=== PATIENT | male | born 1935 | race Caucasian/White ===

== ENCOUNTER → 2016-09-19 | Outpatient (CLI) | payer MEDICARE, OTHER ==
--- NOTE | 2016-09-19 12:07 | XR ---
EXAMINATION TYPE: XR knee complete LT DATE OF EXAM: 09/19/2016 10:54 AM COMPARISON: NONE HISTORY: Pain TECHNIQUE: 3 views are submitted. FINDINGS: There is complete loss of joint space involving the medial and lateral and patellofemoral joints. Hyp ertrophic spurs are noted. There is remodeling of the lateral tibial plateau. Findings suggest chondr ocalcinosis. Vascular calcifications are seen. IMPRESSION: 1. Severe osteoarthritis with complete loss of joint space.
== END | disposition home or self-care (01) ==
LOC: RADXRMAIN 10:23
PROVIDERS: ATTEND Family Medicine
DX: M17.12 Unilateral primary osteoarthritis, left knee (principal)

== ENCOUNTER 2016-09-24 22:10 | Inpatient (IN) | payer MEDICARE, OTHER ==
--- NOTE | 2016-09-24 22:30 | ED ---
General Adult HPI - General Chief complaint: Upper Respiratory Infection Stated complaint: MARITZA Time Seen by Provider: 09/24/16 22:13 Source: EMS, RN notes reviewed, old records reviewed Mode of arrival: EMS Limitations: language barrier, physical limitation - History of Present Illness Initial comments: This is an 81-year-old male the ER for evaluation of inability to ambulate weakness and cough and congestion. Patient is coughing up mucus. Patient has significant and long medical history. Patient had a couple coughing fits earlier today Teresa change of color. Patient's unable to of history is Wise's feeling, history obtained from family. Patient is averbal - Related Data Home Medications Medication Instructions Recorded Confirmed Docusate Sodium [Dulcolax Stool 100 mg PO HS 09/10/14 09/24/16 Softener] Dutasteride [Avodart] 0.5 mg PO W/SUPPER 09/10/14 09/24/16 Furosemide [Lasix] 20 mg PO DAILY 09/10/14 09/24/16 Metoprolol Succinate [Toprol XL] 25 mg PO DAILY 09/10/14 09/24/16 Multivitamins, Thera [Multivitamin] 1 tab PO DAILY 09/10/14 09/24/16 lamoTRIgine [LaMICtal] 300 mg PO QAM 09/10/14 09/24/16 lamoTRIgine [LaMICtal] 350 mg PO W/SUPPER 09/10/14 09/24/16 Aspirin EC [Ecotrin Low Dose] 81 mg PO W/SUPPER 09/24/16 09/24/16 Calcium Carbonate [Calcium] 600 mg PO DAILY 09/24/16 09/24/16 Mucous Relief Dm 400 mg PO TID 09/24/16 09/24/16 Polyethylene Glycol 3350 [Miralax] 17 gm PO DAILY PRN 09/24/16 09/24/16 Ranitidine HCl [Zantac] 150 mg PO BID 09/24/16 09/24/16 Sulfamethox-Tmp 800-160Mg [Bactrim 1 tab PO BID 09/24/16 09/24/16 DS 800-160 mg] valACYclovir HCL [Valtrex] 500 mg PO TID 09/24/16 09/24/16 Allergies Allergy/AdvReac Type Severity Reaction Status Date / Time diphenhydramine HCl Allergy hyper and Verified 09/24/16 22:43 [From Benadryl] aggitated influenza virus vaccine tvs Allergy Confusion Verified 09/24/16 22:43 2014- (65 yr and up) [From Fluad (65yr+)(PF)] vaccine adjuvant emulsion Allergy Confusion Verified 09/24/16 22:43 MF59C.1 [From Fluad (65yr+)(PF)] Review of Systems ROS Statement: Those systems with pertinent positive or pertinent negative responses have been documented in the HPI. ROS Other: All systems not noted in ROS Statement are negative. 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 History of Any Multi-Drug Resistant Organisms: None Reported Past Surgical History: Hernia Repair, Pacemaker Additional Past Surgical History / Comment(s): only pacemaker per legal guardian , oral surgery, cataract, CT WITH ANESTHESIA Additional Past Anesthesia/Blood Transfusion Reaction / Comment(s): limted family history Type of Cardiac Device: Permanent Pacemaker Device Placement Date:: unknown Past Psychological History: Anxiety, PTSD Additional Psychological History / Comment(s): gets aggitated with new experiences Smoking Status: Never smoker Past Alcohol Use History: None Reported Past Drug Use History: None Reported - Past Family History Mother Family Medical History: Cancer General Exam Limitations: language barrier, altered mental status, physical limitation General appearance: alert, in no apparent distress Head exam: Present: atraumatic, normocephalic, normal inspection Eye exam: Present: normal appearance, PERRL, EOMI. Absent: scleral icterus, conjunctival injection, periorbital swelling ENT exam: Present: normal exam, mucous membranes moist Neck exam: Present: normal inspection. Absent: tenderness, meningismus, lymphadenopathy Respiratory exam: Present: normal lung sounds bilaterally. Absent: respiratory distress, wheezes, rales, rhonchi, stridor Cardiovascular Exam: Present: regular rate, normal rhythm, normal heart sounds. Absent: systolic murmur, diastolic murmur, rubs, gallop, clicks GI/Abdominal exam: Present: soft, normal bowel sounds. Absent: distended, tenderness, guarding, rebound, rigid Extremities exam: Present: normal inspection, full ROM, normal capillary refill. Absent: tenderness, pedal edema, joint swelling, calf tenderness Back exam: Present: normal inspection Neurological exam: Present: alert, oriented X3, CN II-XII intact Psychiatric exam: Present: normal affect, normal mood Skin exam: Present: warm, dry, intact, normal color. Absent: rash Course Vital Signs 09/24/16 09/24/16 09/25/16 22:14 23:00 01:44 Temperature 97.7 F Pulse Rate 72 72 Respiratory 20 16 Rate Blood Pressure 141/91 142/61 O2 Sat by Pulse 95 89 L 98 Oximetry - Reevaluation(s) Reevaluation #1: 09/25/16 02:58 Family and caregiver spoken with, they would like patient to remain at home. We 'll make arrangements for patient secondary to his new debilitated state EKG Findings - EKG Comments: EKG Findings:: EKG shows paced rhythm rate of 83, WV 122, QRS 182, QTC 533 Medical Decision Making - Medical Decision Making 81 male in the ER for evaluation. Patient came in by family for evaluation of coughing fits living to epoxying color change, patient having 2 episodes return red to blue per family. Patient is a coughing fit here in the emergency room pulse ox dropped to 80%. Patient will be admitted for pulse ox monitoring, managing of coughing and continued evaluation. - Lab Data Result diagrams: 09/24/16 23:08 09/24/16 23:37 Lab Results 09/24/16 09/24/16 09/24/16 Range/Units 23:08 23:37 23:37 WBC 10.6 (3.8-10.6) k/uL RBC 3.94 L (4.30-5.90) m/uL Hgb 10.6 L (13.0-17.5) gm/dL Hct 33.4 L (39.0-53.0) % MCV 84.6 (80.0-100.0) fL MCH 27.0 (25.0-35.0) pg MCHC 31.9 (31.0-37.0) g/dL RDW 14.1 (11.5-15.5) % Plt Count 299 (150-450) k/uL Neutrophils % 82 % Lymphocytes % 8 % Monocytes % 6 % Eosinophils % 1 % Basophils % 1 % Neutrophils # 8.7 H (1.3-7.7) k/uL Lymphocytes # 0.9 L (1.0-4.8) k/uL Monocytes # 0.6 (0-1.0) k/uL Eosinophils # 0.1 (0-0.7) k/uL Basophils # 0.1 (0-0.2) k/uL PT (9.0-12.0) sec INR (<1.1) APTT (22.0-30.0) sec Sodium 130 L (137-145) mmol/L Potassium 5.0 (3.5-5.1) mmol/L Chloride 94 L (98-107) mmol/L Carbon Dioxide 24 (22-30) mmol/L Anion Gap 12 mmol/L BUN 20 (9-20) mg/dL Creatinine 0.70 (0.66-1.25) mg/dL Est GFR (MDRD) Af Amer >60 (>60 ml/min/1.73 sqM) Est GFR (MDRD) Non-Af >60 (>60 ml/min/1.73 sqM) Glucose 105 H (74-99) mg/dL Calcium 8.9 (8.4-10.2) mg/dL Phosphorus 4.3 (2.5-4.5) mg/dL Magnesium 2.0 (1.6-2.3) mg/dL Total Bilirubin 0.5 (0.2-1.3) mg/dL AST 40 (17-59) U/L ALT 27 (21-72) U/L Alkaline Phosphatase 89 (38-126) U/L Total Creatine Kinase 110 (55-170) U/L CK-MB (CK-2) 3.8 H* (0.0-2.4) ng/mL CK-MB (CK-2) Rel Index 3.5 Troponin I <0.012 (0.000-0.034) ng/mL Total Protein 7.3 (6.3-8.2) g/dL Albumin 4.4 (3.5-5.0) g/dL Urine Color Urine Appearance (Clear) Urine pH (5.0-8.0) Ur Specific [place] (1.001-1.035) Urine Protein (Negative) Urine Glucose (UA) (Negative) Urine Ketones (Negative) Urine Blood (Negative) Urine Nitrite (Negative) Urine Bilirubin (Negative) Urine Urobilinogen (<2.0) mg/dL Ur Leukocyte Esterase (Negative) 09/24/16 09/25/16 Range/Units 23:37 02:30 WBC (3.8-10.6) k/uL RBC (4.30-5.90) m/uL Hgb (13.0-17.5) gm/dL Hct (39.0-53.0) % MCV (80.0-100.0) fL MCH (25.0-35.0) pg MCHC (31.0-37.0) g/dL RDW (11.5-15.5) % Plt Count (150-450) k/uL Neutrophils % % Lymphocytes % % Monocytes % % Eosinophils % % Basophils % % Neutrophils # (1.3-7.7) k/uL Lymphocytes # (1.0-4.8) k/uL Monocytes # (0-1.0) k/uL Eosinophils # (0-0.7) k/uL Basophils # (0-0.2) k/uL PT 10.5 (9.0-12.0) sec INR 1.0 (<1.1) APTT 32.4 H (22.0-30.0) sec Sodium (137-145) mmol/L Potassium (3.5-5.1) mmol/L Chloride (98-107) mmol/L Carbon Dioxide (22-30) mmol/L Anion Gap mmol/L BUN (9-20) mg/dL Creatinine (0.66-1.25) mg/dL Est GFR (MDRD) Af Amer (>60 ml/min/1.73 sqM) Est GFR (MDRD) Non-Af (>60 ml/min/1.73 sqM) Glucose (74-99) mg/dL Calcium (8.4-10.2) mg/dL Phosphorus (2.5-4.5) mg/dL Magnesium (1.6-2.3) mg/dL Total Bilirubin (0.2-1.3) mg/dL AST (17-59) U/L ALT (21-72) U/L Alkaline Phosphatase (38-126) U/L Total Creatine Kinase (55-170) U/L CK-MB (CK-2) (0.0-2.4) ng/mL CK-MB (CK-2) Rel Index Troponin I (0.000-0.034) ng/mL Total Protein (6.3-8.2) g/dL Albumin (3.5-5.0) g/dL Urine Color Yellow Urine Appearance Clear (Clear) Urine pH 6.0 (5.0-8.0) Ur Specific [place] 1.010 (1.001-1.035) Urine Protein Negative (Negative) Urine Glucose (UA) Negative (Negative) Urine Ketones Negative (Negative) Urine Blood Negative (Negative) Urine Nitrite Negative (Negative) Urine Bilirubin Negative (Negative) Urine Urobilinogen <2.0 (<2.0) mg/dL Ur Leukocyte Esterase Negative (Negative) - Radiology Data Radiology results: report reviewed (Chest x-ray negative for acute disease, x- ray pelvis possible fracture, CT pelvis is negative for fracture), image reviewed Disposition Clinical Impression: Upper respiratory infection, Hypoxia, Debility Disposition: ADMITTED IP TO THIS [facility] Condition: Good Referrals: Juliet Escoto MD [Primary Care Provider] - 1-2 days
[2016-09-24] MEDS ORDERED: SODIUM CHLORIDE 0.9% 1,000 ML IV STA (23:08)
[2016-09-24] MEDS ORDERED: SODIUM CHLORIDE 0.9% 500 ML IV STA (23:08)
[2016-09-24] MEDS ORDERED: LORazepam 2 MG/ML SYRINGE IV STA (23:58)
[2016-09-24] MEDS ORDERED: ONDANSETRON 4 MG/2 ML VIAL IVP STA (23:59)
[2016-09-25] MEDS ORDERED: LORazepam 2 MG/ML SYRINGE IV PRN (00:04)
[2016-09-25] MEDS ORDERED: ONDANSETRON 4 MG/2 ML VIAL IVP PRN (00:04)
[2016-09-25 00:18] LABS: Basophils # (A) 0.1 k/uL (0-0.2); Basophils % (A) 1 %; CH 27.6; CHCM 32.7; Eosinophils # (A) 0.1 k/uL (0-0.7); Eosinophils % (A) 1 %; HCT 33.4 % (39.0-53.0); HDW 2.74; HGB 10.6 gm/dL (13.0-17.5); Luc # (Auto) 0.27; Luc % (Auto) 3; Lymphocytes # (A) 0.9 k/uL (1.0-4.8); Lymphocytes % (A) 8 %; MCHC 31.9 g/dL (31.0-37.0); MCV 84.6 fL (80.0-100.0); Mean Platelet Volume 7.8; Monocytes # (A) 0.6 k/uL (0-1.0); Monocytes % (A) 6 %; Neutrophils # (A) 8.7 k/uL (1.3-7.7); Neutrophils % (A) 82 %; RBC 3.94 m/uL (4.30-5.90); RDW 14.1 % (11.5-15.5); WBC 10.6 k/uL (3.8-10.6); WBC (Perox) 11.52
[2016-09-25 00:30] LABS: ALT 27 U/L (21-72); AST 40 U/L (17-59); Alkaline Phosphatase 89 U/L (38-126); Anion Gap 12 mmol/L; Blood Urea Nitrogen 20 mg/dL (9-20); Calcium 8.9 mg/dL (8.4-10.2); Carbon Dioxide 24 mmol/L (22-30); Chloride 94 mmol/L (98-107); Glucose 105 mg/dL (74-99); Non-African American GFR(MDRD) >60 (>60 ml/min/1.73 sqM); Phosphorous 4.3 mg/dL (2.5-4.5); Sodium 130 mmol/L (137-145); Total Bilirubin 0.5 mg/dL (0.2-1.3); Total Protein 7.3 g/dL (6.3-8.2)
--- NOTE | 2016-09-25 00:32 | XR ---
EXAM: XR Pelvis, 1 or 2 Views. CLINICAL HISTORY: Reason: Pain TECHNIQUE: Frontal view of the pelvis. COMPARISON: No relevant prior studies available. FINDINGS: Bones/joints: Questionable fracture of the anterior acetabulum on the right with 6 mm separation. Questionable fracture of left inferior pubic ramus near acetabulum. Mild to moderate degenerative disc disease in the lower lumbar spine. No definite fracture of bilateral femurs. No dislocation Osteopenia. Soft tissues: Unremarkable. IMPRESSION: 1. Questionable fracture of the anterior acetabulum on the right with 6 mm separation. 2. Questionable fracture of left inferior pubic ramus near acetabulum.
--- NOTE | 2016-09-25 00:41 | XR ---
EXAM: XR Chest, 1 View. CLINICAL HISTORY: Reason: Weakness TECHNIQUE: Frontal view of the chest. COMPARISON: 07/12/14 FINDINGS: Lungs: Right basilar atelectasis. Pleural space: Cannot rule out right pleural effusion. No pneumothorax. Heart: Suspect cardiomegaly . Mediastinum: Suspect large hiatal hernia. Bones/joints: Old left rib fractures. Osteopenia. Moderate degenerative changes, especially worse in bilateral shoulders. Other findings: Right pacer is again noted. IMPRESSION: 1. Right basilar atelectasis. Cannot rule out small right pleural effusion. 2. enlarged hyperdense mediastinal contour is not substantially changed, may suggest cardiomegaly and/or large hiatal hernia. Large mediastinal mass cannot be excluded.
[2016-09-25 00:46] LABS: Partial Thromboplastin Time 32.4 sec (22.0-30.0); Prothrombin Time 10.5 sec (9.0-12.0)
[2016-09-25 00:48] LABS: Creatine Kinase 110 U/L (55-170)
[2016-09-25 01:01] LABS: Troponin I <0.012 ng/mL (0.000-0.034)
[2016-09-25 01:29] LABS: Creatine Kinase MB 3.8 ng/mL (0.0-2.4)
--- NOTE | 2016-09-25 02:10 | CT ---
EXAM: CT Pelvis Without Intravenous Contrast. CLINICAL HISTORY: Pain TECHNIQUE: Axial computed tomography images of the pelvis without intravenous contrast. CTDI is 18 mGy and DLP is 574.3 mGy-cm. coronal and sagittal reconstructions are performed. This CT exam was performed using one or more of the following dose reduction techniques: automated exposure control, adjustment of the mA and/or kV according to patient size, and/or use of iterative reconstruction technique. COMPARISON: 09/14/14 FINDINGS: Bowel: Unremarkable. No obstruction. No mucosal thickening. Appendix: No findings to suggest acute appendicitis. Intraperitoneal space: Unremarkable. No free air. No significant fluid collection. Bladder: Unremarkable. No stones. Reproductive: Unremarkable as visualized. Bones/joints: Osteopenia. Moderate degenerative changes. Mild osteoarthritic changes. No acute fracture. No dislocation. Soft tissues: Small left inguinal hernia containing fluid is new. Vasculature: Unremarkable. No lower abdominal aortic aneurysm. Lymph nodes: Unremarkable. No enlarged lymph nodes. IMPRESSION: 1. No fracture or dislocation. 2. Small left inguinal hernia containing fluid is new.
[2016-09-25 02:43] LABS: Appearance,Urine Clear (Clear); Bilirubin,Urine Negative (Negative); Glucose,Urine (UA) Negative (Negative); Ketones,Urine Negative (Negative); Leukocyte Esterase,Urine Negative (Negative); Nitrite,Urine Negative (Negative); Protein,Urine Negative (Negative); UA Billing (MACRO vs. MICRO) CHEM; Urobilinogen,Urine <2.0 mg/dL (<2.0)
[2016-09-25] MEDS ORDERED: IPRATROPIUM-ALBUTEROL 3 ML NEB INHALATION STA (03:01)
[2016-09-25] MEDS ORDERED: AZITHROMYCIN 500 MG in SODIUM CHLORIDE 0.9% 250 ML IVPB STA (03:01)
[2016-09-25] MEDS ORDERED: ACETAMINOPHEN IV (For NPO) 1,000 MG in EMPTY BAG 1 BAG IVPB STA (04:39)
[2016-09-25] MEDS: IPRATROPIUM-ALBUTEROL 3 ML NEB INHALATION SCH ×4 (07:51→19:57)
[2016-09-25] MEDS: ENOXAPARIN 40 MG/0.4 ML SYRINGE SQ SCH (08:20)
[2016-09-25] MEDS: SODIUM CHLORIDE 0.9% 1,000 ML IV SCH ×2 (08:20→14:48)
[2016-09-25] MEDS ORDERED: ACETAMINOPHEN IV (For NPO) 1,000 MG in EMPTY BAG 1 BAG IVPB PRN (12:47)
[2016-09-25] MEDS ORDERED: POLYETHYLENE GLYCOL 3350 17 GM POWD.PACK PO PRN (13:15)
--- NOTE | 2016-09-25 13:18 | P.HPIM ---
History of Present Illness H&P Date: 09/25/16 Chief Complaint: cough and chest congestion patient is an 81-year-old male patient of Dr. Trent Escoto who presented to [facility] emergency room with a chief complaint of cough and chest congestion patient was also having gradual and weakness and was having difficulty standing and ambulating, he was evaluated in the emergency room chest x-ray was suspicious for pneumonia, pelvic x-ray revealed questionable fracture of Santillo to her acetabulum on the right and questionable fraction of the left inferior pubic ramus, however computed tomography scan of the pelvis was normal. Patient was admitted to medical floor he was started on IV antibiotic, pulmonary consultation and orthopedic surgery consultation were requested. Patient is nonverbal, per history patient has developmental delay and is and able to communicate. 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 History of Any Multi-Drug Resistant Organisms: None Reported Past Surgical History: Hernia Repair, Pacemaker Additional Past Surgical History / Comment(s): L cataract, oral surgery, inguinal hernia repair. Additional Past Anesthesia/Blood Transfusion Reaction / Comment(s): limted family history. Pt was slow to clear anesthesia after pacemaker insertion. Type of Cardiac Device: Permanent Pacemaker Device Placement Date:: 2003 inserted and 2012 battery changed Past Psychological History: Anxiety, PTSD Additional Psychological History / Comment(s): Pt was institutionalized for years-age [age]. He was in a straight jacket at times. He came to live with Thalia Pascual and her spouse after that. He has cerebral palsey and is mentally handicapped. He has the mentation of a 3 yrs old. He can normally stand/pivot with assist and sit in wheelchair. He feeds himself fingerfood. Food must be cut small. He will try to use utensils but food falls off. He is aware when he needs to urinate or move his bowels. He gets aggitated with new experiences. Smoking Status: Never smoker Past Alcohol Use History: None Reported Past Drug Use History: None Reported - Past Family History Father History Unknown: Yes Mother Family Medical History: Cancer Additional Family Medical History / Comment(s): ?lung cancer. Medications and Allergies Home Medications Medication Instructions Recorded Confirmed Type Docusate Sodium [Dulcolax Stool 100 mg PO HS 09/10/14 09/24/16 History Softener] Dutasteride [Avodart] 0.5 mg PO W/SUPPER 09/10/14 09/24/16 History Furosemide [Lasix] 20 mg PO DAILY 09/10/14 09/24/16 History Metoprolol Succinate [Toprol XL] 25 mg PO DAILY 09/10/14 09/24/16 History Multivitamins, Thera [Multivitamin] 1 tab PO DAILY 09/10/14 09/24/16 History lamoTRIgine [LaMICtal] 300 mg PO QAM 09/10/14 09/24/16 History lamoTRIgine [LaMICtal] 350 mg PO W/SUPPER 09/10/14 09/24/16 History Aspirin EC [Ecotrin Low Dose] 81 mg PO W/SUPPER 09/24/16 09/24/16 History Calcium Carbonate [Calcium] 600 mg PO DAILY 09/24/16 09/24/16 History Mucous Relief Dm 400 mg PO TID 09/24/16 09/24/16 History Polyethylene Glycol 3350 [Miralax] 17 gm PO DAILY PRN 09/24/16 09/24/16 History Ranitidine HCl [Zantac] 150 mg PO BID 09/24/16 09/24/16 History Sulfamethox-Tmp 800-160Mg [Bactrim 1 tab PO BID 09/24/16 09/24/16 History DS 800-160 mg] valACYclovir HCL [Valtrex] 500 mg PO TID 09/24/16 09/24/16 History Allergies Allergy/AdvReac Type Severity Reaction Status Date / Time diphenhydramine HCl Allergy hyper and Verified 09/24/16 22:43 [From Benadryl] aggitated influenza virus vaccine tvs Allergy Confusion Verified 09/24/16 22:43 (65 yr and up) [From Fluad (65yr+)(PF)] vaccine adjuvant emulsion Allergy Confusion Verified 09/24/16 22:43 MF59C.1 [From Fluad (65yr+)(PF)] Physical Exam Vitals: Vital Signs Temp Pulse Pulse Resp BP BP Pulse Ox 09/25/16 11:55 76 09/25/16 11:44 76 09/25/16 08:07 90 09/25/16 07:51 88 90 L 09/25/16 07:40 100.4 F H 93 16 136/60 91 L 09/25/16 06:50 96 20 155/76 96 09/25/16 06:00 88 26 H 141/71 90 L 09/25/16 05:30 93 L 09/25/16 05:00 80 24 88 L in general patient is somnolent responsive to stimuli nonverbal in no apparent distress HEENT head normocephalic and atraumatic Neck is supple no JVD no goiter no lymphadenopathy Chest exam reveals a few scattered crackles no wheezing Cardiac exam reveals regular heart sounds no gallops no murmurs Abdomen is soft nontender no organomegaly Extremity exam reveals no edema no cyanosis or clubbing Results CBC & Chem 7: 09/24/16 23:08 09/24/16 23:37 Thrombosis Risk Factor Assmnt - Choose All That Apply Any of the Below Risk Factors Present?: Yes Each Factor Represents 1 point: Obesity (BMI >25) Other Risk Factors: Yes Each Risk Factor Represents 3 Points: Age 75 years or older Other congenital or acquired thrombophilia - If yes, enter type in comment: No Thrombosis Risk Factor Assessment Total Risk Factor Score: 4 Thrombosis Risk Factor Assessment Level: Moderate Risk Assessment and Plan Plan: #1 febrile illness was right basilar infiltrate and possible small right pleural effusion at this time patient is started on Rocephin and Zithromax will monitor progress closely #2 fall 2-1/2 weeks ago with inability to stand or walk at this time no clear evidence of bone fracture orthopedic surgery consultation was requested,. Will consult physical therapy and occupational therapy, patient may need placement after the acute admission. #3 history of seizure disorder maintained on Lamictal no recent seizures resume medications #4 history of hypertension resume metoprolol #5 for DVT prophylaxis patient was started on Lovenox for GI prophylaxis continue his ranitidine Will follow during this admission Will recheck labs in a.m.
[2016-09-25] MEDS ORDERED: guaiFENesin-DM 100-10MG/5ML 10 ML CUP PO PRN (16:00)
[2016-09-25] MEDS ORDERED: RX INFO: IV CONTRAST WAS GIVEN 1 EACH MISC MISCELLANE PRN (16:16)
[2016-09-25] MEDS: lamoTRIgine 100 MG TAB PO SCH ×2 (16:33→18:37)
[2016-09-25] MEDS: valACYclovir 500 MG TAB PO SCH ×2 (18:37→20:52)
[2016-09-25] MEDS: predniSONE 20 MG TAB PO SCH (18:37)
[2016-09-25] MEDS: FINASTERIDE 5 MG TAB PO SCH (18:37)
[2016-09-25] MEDS: ASPIRIN 81 MG CHEW PO SCH (18:37)
[2016-09-25] MEDS: CLINDAMYCIN 600 MG in DEXTROSE 5% IN WATER 50 ML IVPB SCH ×4 (19:09→23:11)
[2016-09-25] MEDS: BUDESONIDE 0.5 MG/2 ML NEBU INHALATION SCH (19:56)
--- NOTE | 2016-09-25 19:59 | CONS ---
DATE OF CONSULTATION: 09/25/2016 HISTORY OF PRESENT ILLNESS: The patient is an 81-year-old male who does have history of cerebral palsy and is nonverbal, who lives with a caregiver and her spouse and has guardian. Patient was experiencing worsening cough with bronchospasms, having coughing fits at home, where he would become red and then blue, also was found to be hypoxic in the ER after he had a coughing fit. The patient also had a recent fall about 2-1/2 weeks ago and since then has had more difficulty with pain in his legs. Does have a right leg deformity and the pain seems to be worse in the left leg. Subsequently, patient has been mostly in a wheelchair as of late, unable to ambulate. Chest x-ray done in the emergency room showed some right basilar atelectasis with a possible pleural effusion. Patient was febrile and admitted for further evaluation and treatment. PAST MEDICAL HISTORY: Positive for an eye disorder, hypertension, osteoarthritis, prostate disorder, seizure disorder, skin disorder, cerebral palsy, BPH. The patient does have a history of coughing a lot of mucus up, kyphosis, blindness in his right eye, anxiety and PTSD. PAST SURGICAL HISTORY: Positive for hernia repair and pacemaker placement as well as left cataract surgery, oral surgery. ALLERGIES INCLUDE BENADRYL AND INFLUENZA VACCINE. MEDICATIONS PATIENT IS ON AT HOME INCLUDE: 1. Dulcolax stool softener 100 mg p.o. q.h.s. 2. Avodart 0.5 mg p.o. with supper. 3. Lasix 20 mg p.o. daily. 4. Toprol-XL 25 mg p.o. daily. 5. Multivitamin 1 tab daily. 6. Lamictal 300 mg p.o. q.a.m. with 350 mg p.o. with supper. 7. Ecotrin 81 mg daily with supper. 8. Calcium 600 mg p.o. daily. 9. Mucus relief DM 400 mg p.o. t.i.d. 10. MiraLax 17 g p.o. daily. 11. Zantac 150 mg p.o. b.i.d. 12. Bactrim 1 tab p.o. b.i.d. and 13. Valtrex 500 mg p.o. t.i.d. FAMILY HISTORY: Father's history is unknown. Mother with questionable lung cancer. SOCIAL HISTORY: Patient is a nonsmoker. No use of alcohol reported. No illicit drug use. Review of systems is unobtainable, as the patient is nonverbal and no caregivers are available at time of consult. On physical exam, general is an 81-year-old male who is lying in bed, arousable. Does moan to verbal stimuli. VITAL SIGNS: Temp is 98.4 axillary, heart rate is 80, respiratory rate is 20, blood pressure is 127/68, O2 sat is 93% on high-flow O2 at 10L. HEENT: Head is normocephalic, atraumatic. Patient does not open his eyes for evaluation of pupils nor his mouth for assessment of oral cavity. NECK: Supple. Trachea is midline. LUNGS: Essentially clear, decreased to the bilateral bases. HEART: S1 and S2 heard, but distant heart sounds. ABDOMEN: Soft. Bowel sounds are heard. EXTREMITIES: With no edema. NEUROLOGIC: The patient is responsive to verbal stimuli; however, does not respond appropriately, just moans. Does have a history of cerebral palsy. LABS: White count is 10.6, hemoglobin is 10.6, hematocrit is 33.4 with 299,000 platelets. PT is 10.5. INR is 1.0, PTT is 32.4. Sodium is 130, potassium is 5.0, chloride is 94, CO2 is 24, anion gap is 12, BUN is 20, creatinine 0.70, glucose 105. Calcium 8.9. Phosphorus 4.3. Magnesium 2.0. Total bilirubin 0.5, AST 40, ALT 27, alk phos 89. Total CK 110, MB is 3.8, relative index 3.5. Troponins less than 0.012. Total protein 7.3. Albumin is 4.4. Urinalysis is negative for nitrites or leuk esterase. Chest x-ray: Right basilar atelectasis, cannot rule out small right pleural effusion with enlarged hyperdense mediastinal contour, not substantially changed from July 2014. May suggest cardiomegaly and/or large hiatal hernia. Large mediastinal mass cannot be excluded. CT of the pelvis shows no fracture or dislocation. Small left inguinal hernia containing fluid is new. IMPRESSION: 1. Cough with bronchospasm, viral versus bacterial bronchitis. 2. Hypoxia. 3. Right basilar atelectasis versus infiltrate. 4. Questionable mediastinal mass. 5. History of cerebral palsy. 6. Possible aspiration. 7. Debility. PLAN: Continue oxygen to maintain saturations greater than or equal to 88%. Continue IV antibiotics and will add clindamycin 600 mg every 6 hours for possible aspiration. Will also add prednisone 40 mg p.o. daily for bronchospasms, check a CTA of the chest to rule out PE and further evaluate mediastinal mass. Continue GI and DVT prophylaxis, add aerosolized steroids and will follow the patient closely with you, making further changes as necessary. Thank you for the consultation. I performed a history and physical examination of this patient and discussed the same with the dictator. I agree with the dictator's note. Any additional findings/opinions, etc. will be noted.
--- NOTE | 2016-09-25 20:49 | CT ---
EXAMINATION TYPE: CT ANGIO CHEST DATE OF EXAM: 09/25/2016 6:42 PM HISTORY: Unable to obtain history. Patient is mentally challenged CT DLP: 452.4 mGycm. Automated exposure control for dose reduction was used. CONTRAST: CTA scan of the thorax is performed with IV Contrast, patient injected with 100 mL of Omnipaque 300, pulmonary embolism protocol. . FINDINGS: There is no pulmonary edema. However, there is bibasilar partial consolidation of the right lower lob e and the left lower lobe posteromedially, affecting approximately one third of each lower lobe, rela ever to the massive upward herniation of abdominal contents which includes the stomach and the transve rse colon&mesocolon. These abdominal contents appear to be in no distress. There is no pleural effusion or pneumothorax. The tracheobronchial tree is patent. There is satisfactory enhancement of the pulmonary artery and its branches; there is no CT evidence f or pulmonary embolism. There is mild cardiomegaly. Coronary calcifications are noted. No pericardial effusion. Note: Both shoulders show chronic architectural distortion, left much greater than right. IMPRESSION: 1. NEGATIVE FOR PULMONARY EMBOLISM. 2. BIBASILAR LUNG FINDINGS DISCUSSED, WHICH CAN CORRELATE WITH A CLINICAL DIAGNOSIS OF BIBASILAR P NEUMONIA.
[2016-09-25] MEDS: DOCUSATE 100 MG CAP PO SCH (20:52)
[2016-09-25] MEDS: FAMOTIDINE 20 MG TAB PO SCH (20:52)
[2016-09-26] MEDS: SODIUM CHLORIDE 0.9% 1,000 ML IV SCH ×2 (00:52→17:49)
[2016-09-26] MEDS: CLINDAMYCIN 600 MG in DEXTROSE 5% IN WATER 50 ML IVPB SCH ×8 (05:07→22:49)
[2016-09-26 07:54] LABS: Basophils % (A) 0 %; CH 27.2; CHCM 31.6; Eosinophils % (A) 0 %; HCT 30.3 % (39.0-53.0); HGB 9.5 gm/dL (13.0-17.5); Hypochromasia Slight; Luc # (Auto) 0.27; Luc % (Auto) 2; Lymphocytes % (A) 8 %; MCH 27.3 pg (25.0-35.0); MCHC 31.5 g/dL (31.0-37.0); MCV 86.7 fL (80.0-100.0); Mean Platelet Volume 7.6; Monocytes # (A) 0.6 k/uL (0-1.0); Monocytes % (A) 5 %; Neutrophils # (A) 10.7 k/uL (1.3-7.7); Neutrophils % (A) 85 %; RBC 3.49 m/uL (4.30-5.90); RDW 14.3 % (11.5-15.5); WBC 12.6 k/uL (3.8-10.6); WBC (Perox) 13.41
[2016-09-26 08:08] LABS: ALT 26 U/L (21-72); AST 35 U/L (17-59); Alkaline Phosphatase 83 U/L (38-126); Anion Gap 9 mmol/L; Blood Urea Nitrogen 14 mg/dL (9-20); Calcium 8.8 mg/dL (8.4-10.2); Carbon Dioxide 24 mmol/L (22-30); Chloride 100 mmol/L (98-107); Glucose 94 mg/dL (74-99); Non-African American GFR(MDRD) >60 (>60 ml/min/1.73 sqM); Potassium 3.9 mmol/L (3.5-5.1); Sodium 133 mmol/L (137-145); Total Bilirubin 0.6 mg/dL (0.2-1.3); Total Protein 6.1 g/dL (6.3-8.2)
[2016-09-26] MEDS: ENOXAPARIN 40 MG/0.4 ML SYRINGE SQ SCH (08:11)
[2016-09-26] MEDS: IPRATROPIUM-ALBUTEROL 3 ML NEB INHALATION SCH ×4 (08:12→20:04)
[2016-09-26] MEDS: BUDESONIDE 0.5 MG/2 ML NEBU INHALATION SCH ×2 (08:13→20:04)
--- NOTE | 2016-09-26 08:32 | P.CNOR ---
History of Present Illness - [facility] Consult date: 09/26/16 History of present illness: This is a 81-year-old gentleman admitted with chief complaint of cough and chest congestion. Patient is apparently nonambulatory but does stand and pivot. He apparently has had some difficulty standing recently. X-rays and computed tomography scan was obtained of the pelvis. We are consulted for further evaluation. The patient is seen and evaluated at bedside with Dr. Guero Funes. The patient is nonverbal and unable to communicate. Majority of the history is taken from the chart and from nursing staff. 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 History of Any Multi-Drug Resistant Organisms: None Reported Past Surgical History: Hernia Repair, Pacemaker Additional Past Surgical History / Comment(s): L cataract, oral surgery, inguinal hernia repair. Additional Past Anesthesia/Blood Transfusion Reaction / Comm: limted family history. Pt was slow to clear anesthesia after pacemaker insertion. Type of Cardiac Device: Permanent Pacemaker Device Placement Date:: 2003 inserted and 2012 battery changed Past Psychological History: Anxiety, PTSD Additional Psychological History / Comment(s): Pt was institutionalized for years-age [age]. He was in a straight jacket at times. He came to live with Thalia Pascual and her spouse after that. He has cerebral palsey and is mentally handicapped. He has the mentation of a 3 yrs old. He can normally stand/pivot with assist and sit in wheelchair. He feeds himself fingerfood. Food must be cut small. He will try to use utensils but food falls off. He is aware when he needs to urinate or move his bowels. He gets aggitated with new experiences. Smoking Status: Never smoker Past Alcohol Use History: None Reported Past Drug Use History: None Reported - Past Family History Father History Unknown: Yes Mother Family Medical History: Cancer Additional Family Medical History / Comment(s): ?lung cancer. Medications and Allergies Home Medications Medication Instructions Recorded Confirmed Type Docusate Sodium [Dulcolax Stool 100 mg PO HS 09/10/14 09/24/16 History Softener] Dutasteride [Avodart] 0.5 mg PO W/SUPPER 09/10/14 09/24/16 History Furosemide [Lasix] 20 mg PO DAILY 09/10/14 09/24/16 History Metoprolol Succinate [Toprol XL] 25 mg PO DAILY 09/10/14 09/24/16 History Multivitamins, Thera [Multivitamin] 1 tab PO DAILY 09/10/14 09/24/16 History lamoTRIgine [LaMICtal] 300 mg PO QAM 09/10/14 09/24/16 History lamoTRIgine [LaMICtal] 350 mg PO W/SUPPER 09/10/14 09/24/16 History Aspirin EC [Ecotrin Low Dose] 81 mg PO W/SUPPER 09/24/16 09/24/16 History Calcium Carbonate [Calcium] 600 mg PO DAILY 09/24/16 09/24/16 History Mucous Relief Dm 400 mg PO TID 09/24/16 09/24/16 History Polyethylene Glycol 3350 [Miralax] 17 gm PO DAILY PRN 09/24/16 09/24/16 History Ranitidine HCl [Zantac] 150 mg PO BID 09/24/16 09/24/16 History Sulfamethox-Tmp 800-160Mg [Bactrim 1 tab PO BID 09/24/16 09/24/16 History DS 800-160 mg] valACYclovir HCL [Valtrex] 500 mg PO TID 09/24/16 09/24/16 History Allergies Allergy/AdvReac Type Severity Reaction Status Date / Time diphenhydramine HCl Allergy hyper and Verified 09/24/16 22:43 [From Benadryl] aggitated influenza virus vaccine tvs Allergy Confusion Verified 09/24/16 22:43 (65 yr and up) [From Fluad (65yr+)(PF)] vaccine adjuvant emulsion Allergy Confusion Verified 09/24/16 22:43 [id number] [From Fluad 2015-(65yr+)(PF)] Physical Examination The patient is awake. He is nonverbal. Unable to obtain any history from him. Head normocephalic atraumatic Neck is supple He is moving his upper choice freely. He is not appear to be in pain doing so Examination of his lower extremities was difficult due to patient cooperation. He is not appear to have hip irritability with internal or external rotation. He does not appear uncomfortable with passive logroll bilaterally. He has valgus deformity of his right knee. He performs active flexion and extension of his bilateral knees throughout my exam. He does not appear to have any tenderness on exam. However exam is limited secondary to the patient's ability to cooperate. Sensation appears intact. Circulatory status intact. Results Imaging was reviewed with Dr. Guero Funes. No fractures are identified on the pelvis CT scan - Labs Labs: Abnormal Lab Results - Last 24 Hours (Table) 09/26/16 09/26/16 Range/Units 07:19 07:19 WBC 12.6 H (3.8-10.6) k/uL RBC 3.49 L (4.30-5.90) m/uL Hgb 9.5 L (13.0-17.5) gm/dL Hct 30.3 L (39.0-53.0) % Neutrophils # 10.7 H (1.3-7.7) k/uL Sodium 133 L (137-145) mmol/L Creatinine 0.55 L (0.66-1.25) mg/dL Total Protein 6.1 L (6.3-8.2) g/dL Albumin 3.3 L (3.5-5.0) g/dL H & H 09/26/16 Range/Units 07:19 Hgb 9.5 L (13.0-17.5) gm/dL Hct 30.3 L (39.0-53.0) % Result Diagrams: 09/26/16 07:19 09/26/16 07:19 Assessment and Plan Plan: The patient is seen and evaluated at bedside with Dr. Guero Funes for hip pain. The patient is nonambulatory. His imaging has been reviewed with Dr. Funes. At this point no fractures are noted on the computed tomography scan. The patient may progress with physical therapy. He may follow-up in our office as needed for reevaluation. Please feel free to contact us with any further questions or concerns.
[2016-09-26] MEDS ORDERED: cefTRIAXone 1,000 MG in SODIUM CHLORIDE 0.9% 100 ML IVPB SCH (09:00)
[2016-09-26] MEDS: FUROSEMIDE 20 MG TAB PO SCH (09:14)
[2016-09-26] MEDS: AZITHROMYCIN 500 MG in SODIUM CHLORIDE 0.9% 250 ML IVPB SCH (09:14)
[2016-09-26] MEDS: lamoTRIgine 100 MG TAB PO SCH ×2 (09:14→17:47)
[2016-09-26] MEDS: FAMOTIDINE 20 MG TAB PO SCH ×2 (09:14→19:58)
[2016-09-26] MEDS: predniSONE 20 MG TAB PO SCH (09:15)
[2016-09-26] MEDS: METOPROLOL SUCCINATE (ER) 25 MG TAB.ER.24H PO SCH (09:15)
[2016-09-26] MEDS: valACYclovir 500 MG TAB PO SCH ×3 (09:15→19:59)
--- NOTE | 2016-09-26 11:54 | P.PN ---
Subjective Principal diagnosis: Aspiration pneumonia Patient seen and examined with sister at bedside. Patient is sitting up at the bedside coloring. He is cognitively delayed and unable to answer further questions. Objective - Vital Signs Vital signs: Vital Signs Temp 98.4 F 09/25/16 15:00 Pulse 88 09/26/16 08:28 Resp 16 09/26/16 07:53 BP 127/68 09/25/16 15:00 Pulse Ox 93 L 09/25/16 15:00 Intake & Output 09/25/16 09/26/16 09/26/16 18:59 06:59 18:59 Output Total 300 600 Balance -300 -600 Weight 70.307 kg Output: Urine 300 600 Other: Voiding Method Urinal Urinal Urinal Diaper Diaper Diaper # Voids 3 - Exam General: Alert, NAD CV: RRR, s1/s2 Lungs: coarse breath sounds bilaterally Abd: soft, NT/ND, +BS Ext: no edema - Labs CBC & Chem 7: 09/26/16 07:19 09/26/16 07:19 Labs: Abnormal Lab Results - Last 24 Hours (Table) 09/26/16 09/26/16 Range/Units 07:19 07:19 WBC 12.6 H (3.8-10.6) k/uL RBC 3.49 L (4.30-5.90) m/uL Hgb 9.5 L (13.0-17.5) gm/dL Hct 30.3 L (39.0-53.0) % Neutrophils # 10.7 H (1.3-7.7) k/uL Sodium 133 L (137-145) mmol/L Creatinine 0.55 L (0.66-1.25) mg/dL Total Protein 6.1 L (6.3-8.2) g/dL Albumin 3.3 L (3.5-5.0) g/dL Assessment and Plan Plan: Hypoxia Bronchospasm Cough Bibasilar pneumonia versus atelectasis Likely aspiration pneumonia Very large hiatal hernia History of cerebral palsy Chronic debility Anemia Hyponatremia Gait instability And history of seizure disorder Hypertension O2 to maintain saturation greater than or equal to 80% Continue antibiotics Aspiration precautions Bronchodilators Pulmicort Speech therapy consult Blood, urine, sputum cultures Prednisone taper Gentle hydration GI and DVT prophylaxis: Lovenox, Pepcid PT and OT
[2016-09-26] MEDS: MULTIVITAMINS, THERA 1 EACH TAB PO SCH (12:25)
[2016-09-26] MEDS: CALCIUM CARBONATE 500 MG CHEWABLE PO SCH (12:25)
--- NOTE | 2016-09-26 15:42 | FL ---
Modified barium swallow HISTORY: Aspiration pneumonia Correlation to CT of the chest dated 25 September 2016 Patient was evaluated in real-time fluoroscopy in the lateral projection during ingestion of liquids and solids mixed with barium. Robby aspiration was identified on thin liquids, nectar consistency with laryngeal penetration. See d ictated report from speech pathology for full evaluation.
--- NOTE | 2016-09-26 16:34 | P.PN ---
Subjective Principal diagnosis: Pneumonia patient is alert for blood in no apparent distress Admitted was febrile illness and recent fall Patient lying in bed comfortably no evidence of pain or discomfort at this time Objective - Vital Signs Vital signs: Vital Signs Temp 98.4 F 09/25/16 15:00 Pulse 84 09/26/16 15:32 Resp 16 09/26/16 07:53 BP 127/68 09/25/16 15:00 Pulse Ox 93 L 09/26/16 10:32 Intake & Output 09/25/16 09/26/16 09/26/16 18:59 06:59 18:59 Intake Total 750 Output Total 300 600 Balance -300 -600 750 Weight 70.307 kg Intake: Intake, IV Titration 750 Amount Clindamycin 600 mg In 50 Dextrose 5% in Water 50 ml @ 100 mls/hr IVPB Q6HR [facility] Rx#:[id number] Sodium Chloride 0.9% 1, 700 000 ml @ 100 mls/hr IV . Q10H [facility] Rx#:[id number] Output: Urine 300 600 Other: Voiding Method Urinal Urinal Urinal Diaper Diaper Diaper # Voids 3 - Exam HEENT head normocephalic and atraumatic Neck is supple no JVD no goiter no lymphadenopathy Chest exam reveals a crackles in both lung bases no wheezing Cardiac exam reveals regular heart sounds no murmurs Abdomen is soft nontender no organomegaly Extremity exam reveals no edema no cyanosis or clubbing - Labs CBC & Chem 7: 09/26/16 07:19 09/26/16 07:19 Labs: Abnormal Lab Results - Last 24 Hours (Table) 09/26/16 09/26/16 Range/Units 07:19 07:19 WBC 12.6 H (3.8-10.6) k/uL RBC 3.49 L (4.30-5.90) m/uL Hgb 9.5 L (13.0-17.5) gm/dL Hct 30.3 L (39.0-53.0) % Neutrophils # 10.7 H (1.3-7.7) k/uL Sodium 133 L (137-145) mmol/L Creatinine 0.55 L (0.66-1.25) mg/dL Total Protein 6.1 L (6.3-8.2) g/dL Albumin 3.3 L (3.5-5.0) g/dL Assessment and Plan Plan: #1 febrile illness with right basilar infiltrate and possible small right pleural effusion at this time patient is started on Rocephin and Zithromax will monitor progress closely #2 fall 2-1/2 weeks ago with inability to stand or walk at this time no clear evidence of bone fracture orthopedic surgery consultation was requested,. input from Dr. Funes review Will consult physical therapy and occupational therapy, patient may need placement after the acute admission. #3 history of seizure disorder maintained on Lamictal no recent seizures resume medications #4 history of hypertension resume metoprolol #5 for DVT prophylaxis patient was started on Lovenox for GI prophylaxis continue his ranitidine Will follow during this admission Will recheck labs in a.m.
[2016-09-26] MEDS: FINASTERIDE 5 MG TAB PO SCH (17:47)
[2016-09-26] MEDS: ASPIRIN 81 MG CHEW PO SCH (17:47)
[2016-09-26] MEDS: DOCUSATE 100 MG CAP PO SCH (19:58)
[2016-09-27] MEDS: SODIUM CHLORIDE 0.9% 1,000 ML IV SCH ×3 (05:00→18:19)
[2016-09-27] MEDS: CLINDAMYCIN 600 MG in DEXTROSE 5% IN WATER 50 ML IVPB SCH ×8 (05:00→23:14)
[2016-09-27] MEDS: BUDESONIDE 0.5 MG/2 ML NEBU INHALATION SCH ×2 (07:49→20:59)
[2016-09-27] MEDS: IPRATROPIUM-ALBUTEROL 3 ML NEB INHALATION SCH ×4 (07:49→20:59)
[2016-09-27] MEDS: AZITHROMYCIN 500 MG in SODIUM CHLORIDE 0.9% 250 ML IVPB SCH (09:31)
[2016-09-27] MEDS: ENOXAPARIN 40 MG/0.4 ML SYRINGE SQ SCH (09:32)
[2016-09-27] MEDS: FUROSEMIDE 20 MG TAB PO SCH (09:34)
[2016-09-27] MEDS: lamoTRIgine 100 MG TAB PO SCH ×2 (09:34→18:19)
[2016-09-27] MEDS: valACYclovir 500 MG TAB PO SCH ×3 (09:34→21:17)
[2016-09-27] MEDS: METOPROLOL SUCCINATE (ER) 25 MG TAB.ER.24H PO SCH (09:34)
[2016-09-27] MEDS: FAMOTIDINE 20 MG TAB PO SCH ×2 (09:34→21:17)
[2016-09-27] MEDS: predniSONE 20 MG TAB PO SCH (09:34)
[2016-09-27] MEDS: MULTIVITAMINS, THERA 1 EACH TAB PO SCH (13:20)
[2016-09-27] MEDS: CALCIUM CARBONATE 500 MG CHEWABLE PO SCH (13:20)
--- NOTE | 2016-09-27 16:54 | P.PN ---
Subjective Pneumonia Patient had swallow evaluation no evidence of aspiration Patient lying in bed comfortably no evidence of distress Objective - Vital Signs Vital signs: Vital Signs Temp 97.6 F 09/27/16 15:00 Pulse 96 09/27/16 15:00 Resp 16 09/27/16 15:00 BP 148/75 09/27/16 15:00 Pulse Ox 92 L 09/27/16 15:00 Intake & Output 09/26/16 09/27/16 09/27/16 18:59 06:59 18:59 Intake Total 750 590 360 Balance 750 590 360 Weight 70.307 kg Intake: Intake, IV Titration 750 Amount Clindamycin 600 mg In 50 Dextrose 5% in Water 50 ml @ 100 mls/hr IVPB Q6HR [facility] Rx#:[id number] Sodium Chloride 0.9% 1, 700 000 ml @ 100 mls/hr IV . Q10H [facility] Rx#:[id number] Oral 590 360 Other: Voiding Method Urinal Urinal Urinal Diaper Diaper Diaper # Voids 2 1 # Bowel Movements 1 - Exam Head normocephalic Neck supple Lungs clear to auscultation bilaterally no wheezing or crackles Heart regular rate and rhythm S1-S2, no rub or gallop Abdomen is soft nontender nondistended positive bowel sounds no hepatosplenomegaly Extremities no edema Neuro confused - Labs CBC & Chem 7: 09/26/16 07:19 09/26/16 07:19 Assessment and Plan Plan: #1 febrile illness with right basilar infiltrate and possible small right pleural effusion at this time patient is started on Rocephin and Zithromax will monitor progress closely #2 fall 2-1/2 weeks ago with inability to stand or walk at this time no clear evidence of bone fracture orthopedic surgery consultation was requested,. input from Dr. Funes review Will consult physical therapy and occupational therapy, patient may need placement after the acute admission. #3 history of seizure disorder maintained on Lamictal no recent seizures resume medications #4 history of hypertension resume metoprolol #5 for DVT prophylaxis patient was started on Lovenox for GI prophylaxis continue his ranitidine Possible discharge tomorrow
[2016-09-27] MEDS: FINASTERIDE 5 MG TAB PO SCH (18:19)
[2016-09-27] MEDS: ASPIRIN 81 MG CHEW PO SCH (18:19)
[2016-09-27] MEDS: DOCUSATE 100 MG CAP PO SCH (21:25)
--- NOTE | 2016-09-27 22:52 | PN ---
DATE OF SERVICE: 09/27/2016 Patient is an 81-year-old male who has a history of cerebral palsy. Patient is sitting up in bed, coloring. He is awake, alert. Caregiver is also at the bedside. Patient is afebrile, hemodynamically stable, in no acute distress. PHYSICAL EXAMINATION: VITAL SIGNS: Temperature 97.7, heart rate 82, respiratory rate 16. Blood pressure is 167/78. Oxygen saturation is 88% on room air. HEENT: Head is normocephalic, atraumatic. NECK: Supple. Trachea is midline. LUNGS: With some crackles to the left base, diminished to the right base. Fair air entry to the upper lobes. HEART: S1 and S2 are heard. Not tachycardic. ABDOMEN: Soft. Bowel sounds are heard. EXTREMITIES: No edema. NEUROLOGIC: Patient is alert. Does try to communicate verbally; very difficult to understand. Will follow some commands. Does appear to communicate his needs to his caregiver. History of cerebral palsy. LABS: No new labs to review. IMAGING: No new imaging to review. IMPRESSION: 1. Hypoxia. 2. Bronchospasms. 3. Cough. 4. Bibasilar pneumonia versus atelectasis. 5. Likely aspiration pneumonia. 6. Very large hiatal hernia. 7. History of cerebral palsy. 8. Chronic debility. 9. Anemia. 10. Hyponatremia. 11. Gait instability and history of seizure disorder. 12. Hypertension. PLAN: Continue current medications, which have been reviewed. Continue oxygen to maintain saturations greater than or equal to 88%. Continue aspiration precautions. Continue bronchodilators and aerosolized steroids. Continue prednisone taper with GI and DVT prophylaxis. Continue PT and OT and will follow closely with you, making further changes as necessary.
[2016-09-28] MEDS: CLINDAMYCIN 600 MG in DEXTROSE 5% IN WATER 50 ML IVPB SCH ×6 (05:22→17:43)
[2016-09-28] MEDS: SODIUM CHLORIDE 0.9% 1,000 ML IV SCH ×2 (05:24→15:42)
[2016-09-28] MEDS: predniSONE 10 MG TAB PO SCH (07:48)
[2016-09-28] MEDS: valACYclovir 500 MG TAB PO SCH ×3 (07:48→21:36)
[2016-09-28] MEDS: ENOXAPARIN 40 MG/0.4 ML SYRINGE SQ SCH (07:49)
[2016-09-28] MEDS: lamoTRIgine 100 MG TAB PO SCH ×2 (07:49→17:35)
[2016-09-28] MEDS: FUROSEMIDE 20 MG TAB PO SCH (07:49)
[2016-09-28] MEDS: METOPROLOL SUCCINATE (ER) 25 MG TAB.ER.24H PO SCH (07:49)
[2016-09-28] MEDS: FAMOTIDINE 20 MG TAB PO SCH ×2 (07:49→21:36)
[2016-09-28] MEDS: IPRATROPIUM-ALBUTEROL 3 ML NEB INHALATION SCH ×4 (08:58→21:45)
[2016-09-28] MEDS: BUDESONIDE 0.5 MG/2 ML NEBU INHALATION SCH ×2 (08:58→21:45)
[2016-09-28] MEDS: AZITHROMYCIN 500 MG in SODIUM CHLORIDE 0.9% 250 ML IVPB SCH (09:05)
--- NOTE | 2016-09-28 11:42 | P.PN ---
Subjective Principal diagnosis: Bibasilar pneumonia Patient seen and examined. Patient is singing and coloring. He does not appear to be in any distress. He is currently on room air. Objective - Vital Signs Vital signs: Vital Signs Temp 97.5 F L 09/28/16 07:00 Pulse 80 09/28/16 09:09 Resp 18 09/28/16 08:00 BP 168/78 09/28/16 07:00 Pulse Ox 92 L 09/28/16 07:00 Intake & Output 09/27/16 09/28/16 09/28/16 18:59 06:59 18:59 Intake Total 360 690 Balance 360 690 Intake: IV 100 cefTRIAXone 1,000 mg In 100 Sodium Chloride 0.9% 50 ml @ 100 mls/hr IVPB Q24HR [facility] Rx#:[id number] Oral 360 590 Other: Voiding Method Urinal Urinal Urinal Diaper Diaper Diaper Incontinent Incontinent # Voids 1 2 - Exam General: Alert, NAD CV: RRR, s1/s2 Lungs: coarse breath sounds bilaterally Abd: soft, NT/ND, +BS Ext: no edema - Labs CBC & Chem 7: 09/26/16 07:19 09/26/16 07:19 Assessment and Plan Plan: Hypoxia Bronchospasm Cough Bibasilar pneumonia versus atelectasis Likely aspiration pneumonia Very large hiatal hernia History of cerebral palsy Chronic debility Anemia Hyponatremia Gait instability And history of seizure disorder Hypertension O2 to maintain saturation greater than or equal to 80% Continue antibiotics Aspiration precautions Bronchodilators Pulmicort Speech therapy recommendations Blood, urine, sputum cultures Prednisone taper GI and DVT prophylaxis: Lovenox, Pepcid PT and OT Okay to DC from pulmonary standpoint
[2016-09-28] MEDS: CALCIUM CARBONATE 500 MG CHEWABLE PO SCH (13:15)
[2016-09-28] MEDS: MULTIVITAMINS, THERA 1 EACH TAB PO SCH (13:15)
--- NOTE | 2016-09-28 15:42 | P.PN ---
Subjective Pneumonia Patient had swallow evaluation no evidence of aspiration patient lying in bed comfortably. Patient was cleared for discharge by pulmonary service. Initially discharge plan was to go home with home care. Discharge will be held so that home care and community mental health care can be set up. Caregivers also waiting for lift equipment to be set up at the house. Objective - Vital Signs Vital signs: Vital Signs Temp 97.5 F L 09/28/16 07:00 Pulse 88 09/28/16 12:20 Resp 18 09/28/16 08:00 BP 168/78 09/28/16 07:00 Pulse Ox 92 L 09/28/16 07:00 Intake & Output 09/27/16 09/28/16 09/28/16 18:59 06:59 18:59 Intake Total 360 690 Balance 360 690 Intake: IV 100 cefTRIAXone 1,000 mg In 100 Sodium Chloride 0.9% 50 ml @ 100 mls/hr IVPB Q24HR [facility] Rx#:[id number] Oral 360 590 Other: Voiding Method Urinal Urinal Urinal Diaper Diaper Diaper Incontinent Incontinent # Voids 1 2 - Exam Head normocephalic Neck supple Lungs clear to auscultation bilaterally no wheezing or crackles Heart regular rate and rhythm S1-S2, no rub or gallop Abdomen is soft nontender nondistended positive bowel sounds no hepatosplenomegaly Extremities no edema Neuro confused - Labs CBC & Chem 7: 09/26/16 07:19 09/26/16 07:19 Assessment and Plan Plan: #1 pneumonia: Continue Rocephin and azithromycin. Pulmonary service has cleared patient for discharge. #2 fall 2-1/2 weeks ago with inability to stand or walk at this time no clear evidence of bone fracture orthopedic surgery consultation was requested,input from Dr. Funes review #3 history of seizure disorder maintained on Lamictal no recent seizures resume medications #4 history of hypertension resume metoprolol #5 for DVT prophylaxis patient was started on Lovenox for GI prophylaxis continue his ranitidine discharge held today. sex worker or escort and showcase trimmer are working on arranging the home care, medical equipment, and community mental health care the patient will require at home. The patient is requiring a community mental health member that will help out at home for about 16 hours. It may take until Saturday for these services to be arranged. Therefore patient will not be discharged today.
[2016-09-28] MEDS: FINASTERIDE 5 MG TAB PO SCH (17:35)
[2016-09-28] MEDS: ASPIRIN 81 MG CHEW PO SCH (17:35)
[2016-09-28] MEDS: DOCUSATE 100 MG CAP PO SCH (21:36)
[2016-09-29] MEDS: CLINDAMYCIN 600 MG in DEXTROSE 5% IN WATER 50 ML IVPB SCH ×4 (00:53→08:54)
[2016-09-29 08:10] VITALS: BP 159/96; PULSE 84; RESP 17; TEMP 100
[2016-09-29] MEDS: predniSONE 10 MG TAB PO SCH (08:52)
[2016-09-29] MEDS: valACYclovir 500 MG TAB PO SCH (08:52)
[2016-09-29] MEDS: METOPROLOL SUCCINATE (ER) 25 MG TAB.ER.24H PO SCH (08:52)
[2016-09-29] MEDS: FUROSEMIDE 20 MG TAB PO SCH (08:53)
[2016-09-29] MEDS: ENOXAPARIN 40 MG/0.4 ML SYRINGE SQ SCH (08:53)
[2016-09-29] MEDS: FAMOTIDINE 20 MG TAB PO SCH (08:53)
[2016-09-29] MEDS: lamoTRIgine 100 MG TAB PO SCH (08:53)
[2016-09-29] MEDS: IPRATROPIUM-ALBUTEROL 3 ML NEB INHALATION SCH ×2 (09:30→11:58)
[2016-09-29] MEDS: BUDESONIDE 0.5 MG/2 ML NEBU INHALATION SCH (09:30)
[2016-09-29] MEDS: SODIUM CHLORIDE 0.9% 1,000 ML IV SCH ×2 (09:30→09:31)
--- NOTE | 2016-09-29 11:07 | P.DS ---
Providers Date of admission: 09/25/16 04:41 Expected date of discharge: 09/29/16 Attending physician: Maria Luisa Barth Consults: 09/25/16 13:01 Consult Physician Routine Consulting Provider: Nico Otto Consult Reason/Comments: febrile illness Do you want consulting provider notified?: Yes Primary care physician: Juliet Escoto [facility] Course: diagnosis on discharge #1 by basilar pneumonia #2 small right pleural effusion #3 fall 2-1/2 weeks ago, with physical debility, no evidence of any bone fracture #4 history of seizure disorder maintained on Lamictal #5 hypertension #6 bronchospasm treated with bronchodilators and inhaled steroids #7 history of cerebral palsy #8 underlying history of hiatal hernia #9 underlying history of gait instability #10 hyponatremia Hospital course patient is an 81-year-old male with known history of cerebral palsy and moderate the physical and mental debility and known history of seizure disorder, Who presented to [facility] due to cough shortness of breath fever and hypoxia Patient was also having difficulty standing or walking He was admitted to medical floor, computed tomography scan of the chest failed to reveal any evidence of pulmonary embolism However patient had by basilar infiltrate suggestive of pneumonia He was treated with IV antibiotic IV steroids and inhaled bronchodilators He improved significantly He was switched to oral antibiotic and oral steroids and was discharged home on 09/29/2016 During this admission patient was having difficulty standing or walking he had a history of fall 2-1/2 weeks prior to admission Multiple x-rays done and patient was evaluated by orthopedic surgery there was no evidence of any bony fractures Patient should follow-up with his primary care physician Dr. Escoto within 1 week he should also follow with pulmonary in 1-2 weeks Patient Condition at Discharge: Good Plan - Discharge Summary New Discharge Prescriptions: Amoxicillin/Potassium Clav [Augmentin 875-125 Tablet] 1 tab PO Q12HR #20 tab Discharge Medication List Docusate Sodium [Dulcolax Stool Softener] 100 mg PO HS 09/10/14 [History] Dutasteride [Avodart] 0.5 mg PO W/SUPPER 09/10/14 [History] Furosemide [Lasix] 20 mg PO DAILY 09/10/14 [History] Metoprolol Succinate [Toprol XL] 25 mg PO DAILY 09/10/14 [History] Multivitamins, Thera [Multivitamin (formulary)] 1 tab PO DAILY 09/10/14 [History ] lamoTRIgine [LaMICtal] 300 mg PO QAM 09/10/14 [History] lamoTRIgine [LaMICtal] 350 mg PO W/SUPPER 09/10/14 [History] Aspirin EC [Ecotrin Low Dose] 81 mg PO W/SUPPER 09/24/16 [History] Calcium Carbonate [Calcium] 600 mg PO DAILY 09/24/16 [History] Mucous Relief Dm 400 mg PO TID 09/24/16 [History] Polyethylene Glycol 3350 [Miralax] 17 gm PO DAILY PRN 09/24/16 [History] Ranitidine HCl [Zantac] 150 mg PO BID 09/24/16 [History] Amoxicillin/Potassium Clav [Augmentin 875-125 Tablet] 1 tab PO Q12HR #20 tab 07/17 [Rx] Budesonide [Pulmicort] 0.5 mg INHALATION RT-BID nebu 09/29/16 [Rx] Ipratropium-Albuterol Nebulize [Duoneb 0.5 mg-3 mg/3 ml Soln] 3 ml INHALATION RT -QID ampul.neb 09/29/16 [Rx] predniSONE 30 mg PO DAILY tab 09/29/16 [Rx] Follow up Appointment(s)/Referral(s): [facility], [NON-STAFF] - Juliet Escoto MD [Primary Care Provider] - 1-2 days
== END 2016-09-29 11:50 | disposition home health service (06) | DRG 194 ==
LOC: EC 22:10 → 5MS5E 09-25 04:41
PROVIDERS: ADMIT Internal Medicine; ATTEND Internal Medicine
DX: J18.9 Pneumonia, unspecified organism (principal); J90 Pleural effusion, not elsewhere classified; G80.9 Cerebral palsy, unspecified; D64.9 Anemia, unspecified; E87.1 Hypo-osmolality and hyponatremia; M41.9 Scoliosis, unspecified; J98.11 Atelectasis; G40.909 Epilepsy, unspecified, not intractable, without status epilepticus; J98.01 Acute bronchospasm; I10 Essential (primary) hypertension; M19.91 Primary osteoarthritis, unspecified site; N40.0 Benign prostatic hyperplasia without lower urinary tract symptoms; H54.41 Blindness, right eye, normal vision left eye; F43.10 Post-traumatic stress disorder, unspecified; K44.9 Diaphragmatic hernia without obstruction or gangrene; R26.9 Unspecified abnormalities of gait and mobility; Z88.7 Allergy status to serum and vaccine; Z88.8 Allergy status to other drugs, medicaments and biological substances; Z98.42 Cataract extraction status, left eye; Z95.0 Presence of cardiac pacemaker; Z79.82 Long term (current) use of aspirin; Z79.899 Other long term (current) drug therapy
CPT/HCPCS: 36415; 71010; 71275; 72170; 72192; 74230; 80053; 81003; 82550; 82553; 83735; 84100; 84484; 85025; 85610; 85730; 87086; 93005; 94640; 96361; 96365; 96366; 96367; 96375; 99285

== ENCOUNTER 2016-09-29 23:44 | Emergency (ER) | payer MEDICARE, OTHER ==
[2016-09-30 01:29] VITALS: BP 160/97; PULSE 102; RESP 20; TEMP 98.6
--- NOTE | 2016-09-30 01:49 | XR ---
EXAM: XR Chest, 1 View. CLINICAL HISTORY: Reason: cough TECHNIQUE: Frontal view of the chest. COMPARISON: 09/24/16 FINDINGS: Lungs: Increased ill-defined streaky density in the left lung base. Pleural space: Unremarkable. No pneumothorax. Heart: Enlarged cardiopericardial silhouette again seen, unchanged. Mediastinum: Unremarkable. Bones/joints: Severe degenerative changes in both shoulders and spine. Vasculature: Markedly tortuous thoracic aorta is again identified. Prominent central vasculature. Tubes, lines and devices: Right sided pacemaker, unchanged in position. IMPRESSION: Stable enlarged cardiopericardial silhouette. Developing infiltrate versus atelectasis in the left lung base.
--- NOTE | 2016-09-30 01:56 | ED ---
General Adult HPI - General Chief complaint: Recheck/Abnormal Lab/Rx Stated complaint: MARITZA Time Seen by Provider: 09/30/16 00:07 Source: family, EMS Mode of arrival: EMS Limitations: language barrier - History of Present Illness Initial comments: This patient is an 81-year-old man with history of cerebral palsy and developmental delay. It is reported that his developmental age is about 5 years old. They had been discharged from the hospital yesterday with the diagnosis of pneumonia and the understanding that they were to receive nebulizer for home albuterol treatments. They note that the patient also has had some nonproductive cough and that he does appear to be having discomfort with the cough and crying at times. The patient is not able to add any history. -: hour(s) Location: chest Consistency: intermittent Improves with: none Worsens with: other (Cough) Associated Symptoms: cough - Related Data Home Medications Medication Instructions Recorded Confirmed Docusate Sodium [Dulcolax Stool 100 mg PO HS 09/10/14 10/01/16 Softener] Dutasteride [Avodart] 0.5 mg PO W/SUPPER 09/10/14 10/01/16 Furosemide [Lasix] 20 mg PO DAILY 09/10/14 10/01/16 Metoprolol Succinate [Toprol XL] 25 mg PO DAILY 09/10/14 10/01/16 Multivitamins, Thera [Multivitamin 1 tab PO DAILY 09/10/14 10/01/16 (formulary)] lamoTRIgine [LaMICtal] 300 mg PO QAM 09/10/14 10/01/16 lamoTRIgine [LaMICtal] 350 mg PO W/SUPPER 09/10/14 10/01/16 Calcium Carbonate [Calcium] 600 mg PO DAILY 09/24/16 10/01/16 Mucous Relief Dm 400 mg PO TID 09/24/16 10/01/16 Polyethylene Glycol 3350 [Miralax] 17 gm PO DAILY PRN 09/24/16 10/01/16 Ranitidine HCl [Zantac] 150 mg PO BID 09/24/16 10/01/16 Previous Rx's Medication Instructions Recorded Aspirin 81 mg PO DAILY #30 chew 10/05/16 Budesonide [Pulmicort] 0.5 mg INHALATION RT-BID #30 nebu 10/05/16 Ipratropium-Albuterol Nebulize 3 ml INHALATION RT-QID #60 10/05/16 [Duoneb 0.5 mg-3 mg/3 ml Soln] ampul.neb Isosorbide Mononitrate ER [Imdur] 30 mg PO DAILY #30 tab.er.24h 10/05/16 Moxifloxacin HCl [Avelox] 400 mg PO DAILY #5 tablet 10/05/16 predniSONE 40 mg PO DAILY #10 tab 10/05/16 Allergies Allergy/AdvReac Type Severity Reaction Status Date / Time diphenhydramine HCl Allergy hyper and Verified 10/01/16 07:20 [From Benadryl] aggitated Influenza Virus Vaccines Allergy Confusion Verified 10/01/16 07:20 Review of Systems ROS Statement: Those systems with pertinent positive or pertinent negative responses have been documented in the HPI. ROS Other: All systems not noted in ROS Statement are negative. Limitations: ROS unobtainable due to patients medical condition Respiratory: Reports: as per HPI, cough. 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 History of Any Multi-Drug Resistant Organisms: None Reported Past Surgical History: Hernia Repair, Pacemaker Additional Past Surgical History / Comment(s): L cataract, oral surgery, inguinal hernia repair. Additional Past Anesthesia/Blood Transfusion Reaction / Comment(s): limted family history. Pt was slow to clear anesthesia after pacemaker insertion. Type of Cardiac Device: Permanent Pacemaker Device Placement Date:: 2003 inserted and 2012 battery changed Past Psychological History: Anxiety, PTSD Additional Psychological History / Comment(s): Pt was institutionalized for years-age [age]. He was in a straight jacket at times. He came to live with Thalia Pascual and her spouse after that. He has cerebral palsey and is mentally handicapped. He has the mentation of a 3 yrs old. He can normally stand/pivot with assist and sit in wheelchair. He feeds himself fingerfood. Food must be cut small. He will try to use utensils but food falls off. He is aware when he needs to urinate or move his bowels. He gets aggitated with new experiences. Smoking Status: Never smoker Past Alcohol Use History: None Reported Past Drug Use History: None Reported - Past Family History Father History Unknown: Yes Mother Family Medical History: Cancer Additional Family Medical History / Comment(s): ?lung cancer. General Exam Limitations: language barrier General appearance: alert, in no apparent distress Head exam: Present: atraumatic Eye exam: Present: normal appearance ENT exam: Present: normal oropharynx Neck exam: Present: normal inspection, full ROM. Absent: meningismus Respiratory exam: Present: rhonchi, chest wall tenderness. Absent: respiratory distress, wheezes, rales, stridor Cardiovascular Exam: Present: regular rate, normal rhythm, normal heart sounds. Absent: systolic murmur, diastolic murmur, rubs, gallop GI/Abdominal exam: Present: soft. Absent: distended, tenderness, guarding, rebound Extremities exam: Present: normal inspection, normal capillary refill. Absent: pedal edema, calf tenderness Neurological exam: Present: alert Skin exam: Present: warm, dry, intact, normal color. Absent: rash Course Vital Signs 09/29/16 09/30/16 09/30/16 23:56 00:06 01:28 Temperature 99.7 F H 98.6 F Pulse Rate 85 102 H Respiratory 20 18 20 Rate Blood Pressure 159/102 160/97 O2 Sat by Pulse 96 96 Oximetry Medical Decision Making - Medical Decision Making This patient is an 81-year-old male with history of cerebral palsy and recent diagnosis of pneumonia. Family is concerned because they had not received the nebulizer machine yet. They also were having difficulty understanding some of the things that are related to discharge. I was able to go over the discharge papers with them and alleviate any other concerns. The patient did have nebulized treatment here and is without distress. At this point they would like to take him home as they feel the environment there is better than in the hospital and the nebulizer will be arranged. Discussed return parameters. Disposition Clinical Impression: Pneumonia Disposition: HOME SELF-CARE Condition: Fair Instructions: Pneumonia (ED) Additional Instructions: Continue the medications which were prescribed. Referrals: Juliet Escoto MD [Primary Care Provider] - 1-2 days
== END 2016-09-30 02:45 | disposition home or self-care (01) ==
LOC: EC 23:44
DX: J18.9 Pneumonia, unspecified organism (principal); I10 Essential (primary) hypertension; M19.90 Unspecified osteoarthritis, unspecified site; N42.9 Disorder of prostate, unspecified; G80.9 Cerebral palsy, unspecified; G40.909 Epilepsy, unspecified, not intractable, without status epilepticus; Z88.7 Allergy status to serum and vaccine; Z88.8 Allergy status to other drugs, medicaments and biological substances; Z79.82 Long term (current) use of aspirin; Z79.899 Other long term (current) drug therapy; Z95.0 Presence of cardiac pacemaker; Z99.3 Dependence on wheelchair
CPT/HCPCS: 71010; 99285

== ENCOUNTER 2016-10-01 05:09 | Inpatient (IN) | payer MEDICARE, OTHER ==
[2016-10-01] MEDS ORDERED: IPRATROPIUM-ALBUTEROL 3 ML NEB INHALATION STA (05:40)
--- NOTE | 2016-10-01 05:43 | ED ---
General Adult HPI - General Source: patient, RN notes reviewed Mode of arrival: EMS Limitations: altered mental status <Henry Garcia - Last Filed: 10/01/16 05:40> <Montana Quarles - Last Filed: 10/01/16 08:12> - General Chief complaint: Altered Mental Status Stated complaint: Altered Mental Status Time Seen by Provider: 10/01/16 05:21 - History of Present Illness Initial comments: Patient is a 81-year-old male presenting with family for change in mental status. Patient does have cerebral palsy and is a poor historian. Patient woke this morning and was restless and confused and somewhat combative. Symptoms lasted around 45 minutes. Symptoms have now resolved and patient is acting normal. Patient has a difficult time providing any history. Patient was recently discharged from the hospital with pneumonia. (Henry Garcia) - Related Data Home Medications Medication Instructions Recorded Confirmed Docusate Sodium [Dulcolax Stool 100 mg PO HS 09/10/14 10/01/16 Softener] Dutasteride [Avodart] 0.5 mg PO W/SUPPER 09/10/14 10/01/16 Furosemide [Lasix] 20 mg PO DAILY 09/10/14 10/01/16 Metoprolol Succinate [Toprol XL] 25 mg PO DAILY 09/10/14 10/01/16 Multivitamins, Thera [Multivitamin 1 tab PO DAILY 09/10/14 10/01/16 (formulary)] lamoTRIgine [LaMICtal] 300 mg PO QAM 09/10/14 10/01/16 lamoTRIgine [LaMICtal] 350 mg PO W/SUPPER 09/10/14 10/01/16 Aspirin EC [Ecotrin Low Dose] 81 mg PO W/SUPPER 09/24/16 10/01/16 Calcium Carbonate [Calcium] 600 mg PO DAILY 09/24/16 10/01/16 Mucous Relief Dm 400 mg PO TID 09/24/16 10/01/16 Polyethylene Glycol 3350 [Miralax] 17 gm PO DAILY PRN 09/24/16 10/01/16 Ranitidine HCl [Zantac] 150 mg PO BID 09/24/16 10/01/16 Previous Rx's Medication Instructions Recorded Amoxicillin/Potassium Clav 1 tab PO Q12HR #20 tab 09/29/16 [Augmentin 875-125 Tablet] Budesonide [Pulmicort] 0.5 mg INHALATION RT-BID #60 nebu 09/29/16 Ipratropium-Albuterol Nebulize 3 ml INHALATION RT-QID #120 09/29/16 [Duoneb 0.5 mg-3 mg/3 ml Soln] ampul.neb predniSONE 0 mg PO DIRECTED #1 tab 09/29/16 predniSONE 30 mg PO DAILY tab 09/29/16 Allergies Allergy/AdvReac Type Severity Reaction Status Date / Time diphenhydramine HCl Allergy hyper and Verified 10/01/16 07:20 [From Benadryl] aggitated Influenza Virus Vaccines Allergy Confusion Verified 10/01/16 07:20 Review of Systems ROS Other: All systems not noted in ROS Statement are negative. Constitutional: Denies: fever Eyes: Denies: vision change ENT: Denies: epistaxis Respiratory: Reports: cough, dyspnea Cardiovascular: Reports: chest pain (Associated to cough) Endocrine: Denies: fatigue Gastrointestinal: Denies: vomiting Genitourinary: Denies: dysuria Musculoskeletal: Denies: arthralgia Skin: Denies: rash Neurological: Reports: confusion <Henry Garcia - Last Filed: 10/01/16 05:40> ROS Other: All systems not noted in ROS Statement are negative. <[place] Quarles - Last Filed: 10/01/16 08:12> ROS Statement: Those systems with pertinent positive or pertinent negative responses have been documented in the HPI. 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 History of Any Multi-Drug Resistant Organisms: None Reported Past Surgical History: Hernia Repair, Pacemaker Additional Past Surgical History / Comment(s): L cataract, oral surgery, inguinal hernia repair. Additional Past Anesthesia/Blood Transfusion Reaction / Comment(s): limted family history. Pt was slow to clear anesthesia after pacemaker insertion. Type of Cardiac Device: Permanent Pacemaker Device Placement Date:: 2003 inserted and 2012 battery changed Past Psychological History: Anxiety, PTSD Additional Psychological History / Comment(s): Pt was institutionalized for years-age [age]. He was in a straight jacket at times. He came to live with Thalia Pascual and her spouse after that. He has cerebral palsey and is mentally handicapped. He has the mentation of a 3 yrs old. He can normally stand/pivot with assist and sit in wheelchair. He feeds himself fingerfood. Food must be cut small. He will try to use utensils but food falls off. He is aware when he needs to urinate or move his bowels. He gets aggitated with new experiences. Smoking Status: Never smoker Past Alcohol Use History: None Reported Past Drug Use History: None Reported - Past Family History Father History Unknown: Yes Mother Family Medical History: Cancer Additional Family Medical History / Comment(s): ?lung cancer. <Henry Garcia - Last Filed: 10/01/16 05:40> General Exam Limitations: altered mental status General appearance: alert, in no apparent distress Head exam: Present: atraumatic Eye exam: Present: other (Right eye completely opacified) ENT exam: Present: normal oropharynx Neck exam: Present: normal inspection Respiratory exam: Present: rales (Left base) Cardiovascular Exam: Present: regular rate, normal rhythm GI/Abdominal exam: Present: soft. Absent: tenderness Extremities exam: Present: normal inspection Neurological exam: Present: alert, other (Limited exam). Absent: motor sensory deficit Psychiatric exam: Present: normal affect, normal mood Skin exam: Absent: rash <Henry Garcia - Last Filed: 10/01/16 05:40> Medical Decision Making <Henry Garcia - Last Filed: 10/01/16 05:40> - Lab Data Result diagrams: 10/01/16 05:31 10/01/16 05:31 <Montana Quarles - Last Filed: 10/01/16 08:12> - Medical Decision Making The patient was seen and examined. Report was received from previous shift. His EKG shows an atrial sensed ventricular paced rhythm at a heart rate of 80. The [place] interval is 148, QRS duration is 172, and QTc interval is 49. There are ST-T wave changes associated with a paced rhythm. The patient's laboratory shows an elevation of the CK-MB and elevation of the troponin likely due to a non-ST elevation myocardial infarction. He also is anemic. The chest x-ray shows evidence of congestive heart failure with a right pleural effusion. The computed tomography scan of the brain was negative. Urinalysis is negative. Overall, it is felt as though he would require admission to the hospital for further treatment. His mental status has improved back to his baseline per guardian. Case is discussed with the guardians in detail and they are agreeable to admission. They do voice concern in regards to requesting increased communication for this hospitalization. Case will be discussed with internal medicine and patient be admitted to the hospital for further treatment. (Montana Quarles) - Lab Data Lab Results 10/01/16 10/01/16 10/01/16 Range/Units 05:31 05:31 05:31 WBC 8.9 (3.8-10.6) k/uL RBC 3.78 L (4.30-5.90) m/uL Hgb 10.5 L (13.0-17.5) gm/dL Hct 33.1 L (39.0-53.0) % MCV 87.7 (80.0-100.0) fL MCH 27.8 (25.0-35.0) pg MCHC 31.8 (31.0-37.0) g/dL RDW 14.9 (11.5-15.5) % Plt Count 350 (150-450) k/uL Neutrophils % 83 % Lymphocytes % 11 % Monocytes % 4 % Eosinophils % 0 % Basophils % 0 % Neutrophils # 7.4 (1.3-7.7) k/uL Lymphocytes # 1.0 (1.0-4.8) k/uL Monocytes # 0.4 (0-1.0) k/uL Eosinophils # 0.0 (0-0.7) k/uL Basophils # 0.0 (0-0.2) k/uL Hypochromasia Moderate PT (9.0-12.0) sec INR (<1.1) APTT (22.0-30.0) sec Sodium 142 (137-145) mmol/L Potassium 3.9 (3.5-5.1) mmol/L Chloride 99 (98-107) mmol/L Carbon Dioxide 31 H (22-30) mmol/L Anion Gap 12 mmol/L BUN 20 (9-20) mg/dL Creatinine 0.58 L (0.66-1.25) mg/dL Est GFR (MDRD) Af Amer >60 (>60 ml/min/1.73 sqM) Est GFR (MDRD) Non-Af >60 (>60 ml/min/1.73 sqM) Glucose 134 H (74-99) mg/dL Plasma Lactic Acid Abdulkadir (0.7-2.0) mmol/L Calcium 9.2 (8.4-10.2) mg/dL Total Bilirubin 0.5 (0.2-1.3) mg/dL AST 76 H (17-59) U/L ALT 48 (21-72) U/L Alkaline Phosphatase 74 (38-126) U/L Total Creatine Kinase 734 H (55-170) U/L CK-MB (CK-2) 20.5 H* (0.0-2.4) ng/mL CK-MB (CK-2) Rel Index 2.8 Troponin I 0.037 H* (0.000-0.034) ng/mL Total Protein 6.9 (6.3-8.2) g/dL Albumin 4.0 (3.5-5.0) g/dL Urine Color Urine Appearance (Clear) Urine pH (5.0-8.0) Ur Specific [place] (1.001-1.035) Urine Protein (Negative) Urine Glucose (UA) (Negative) Urine Ketones (Negative) Urine Blood (Negative) Urine Nitrite (Negative) Urine Bilirubin (Negative) Urine Urobilinogen (<2.0) mg/dL Ur Leukocyte Esterase (Negative) Urine RBC (0-5) /hpf Urine WBC (0-5) /hpf Hyaline Casts (0-2) /lpf Granular Casts (0) /lpf Urine Mucus (None) /hpf Urine Opiates Screen (NotDetected) Ur Oxycodone Screen (NotDetected) Urine Methadone Screen (NotDetected) Ur Propoxyphene Screen (NotDetected) Ur Barbiturates Screen (NotDetected) U Tricyclic Antidepress (NotDetected) Ur Phencyclidine Scrn (NotDetected) Ur Amphetamines Screen (NotDetected) U Methamphetamines Scrn (NotDetected) U Benzodiazepines Scrn (NotDetected) Urine Cocaine Screen (NotDetected) U Marijuana (THC) Screen (NotDetected) 10/01/16 10/01/16 10/01/16 Range/Units 05:31 05:31 05:31 WBC (3.8-10.6) k/uL RBC (4.30-5.90) m/uL Hgb (13.0-17.5) gm/dL Hct (39.0-53.0) % MCV (80.0-100.0) fL MCH (25.0-35.0) pg MCHC (31.0-37.0) g/dL RDW (11.5-15.5) % Plt Count (150-450) k/uL Neutrophils % % Lymphocytes % % Monocytes % % Eosinophils % % Basophils % % Neutrophils # (1.3-7.7) k/uL Lymphocytes # (1.0-4.8) k/uL Monocytes # (0-1.0) k/uL Eosinophils # (0-0.7) k/uL Basophils # (0-0.2) k/uL Hypochromasia PT 13.2 H (9.0-12.0) sec INR 1.3 (<1.1) APTT 23.5 (22.0-30.0) sec Sodium (137-145) mmol/L Potassium (3.5-5.1) mmol/L Chloride (98-107) mmol/L Carbon Dioxide (22-30) mmol/L Anion Gap mmol/L BUN (9-20) mg/dL Creatinine (0.66-1.25) mg/dL Est GFR (MDRD) Af Amer (>60 ml/min/1.73 sqM) Est GFR (MDRD) Non-Af (>60 ml/min/1.73 sqM) Glucose (74-99) mg/dL Plasma Lactic Acid Abdulkadir 1.6 (0.7-2.0) mmol/L Calcium (8.4-10.2) mg/dL Total Bilirubin (0.2-1.3) mg/dL AST (17-59) U/L ALT (21-72) U/L Alkaline Phosphatase (38-126) U/L Total Creatine Kinase (55-170) U/L CK-MB (CK-2) (0.0-2.4) ng/mL CK-MB (CK-2) Rel Index Troponin I (0.000-0.034) ng/mL Total Protein (6.3-8.2) g/dL Albumin (3.5-5.0) g/dL Urine Color Yellow Urine Appearance Clear (Clear) Urine pH 6.0 (5.0-8.0) Ur Specific [place] 1.020 (1.001-1.035) Urine Protein 2+ H (Negative) Urine Glucose (UA) Negative (Negative) Urine Ketones Negative (Negative) Urine Blood Moderate H (Negative) Urine Nitrite Negative (Negative) Urine Bilirubin Negative (Negative) Urine Urobilinogen <2.0 (<2.0) mg/dL Ur Leukocyte Esterase Negative (Negative) Urine RBC 2 (0-5) /hpf Urine WBC 1 (0-5) /hpf Hyaline Casts 1 (0-2) /lpf Granular Casts 29 (0) /lpf Urine Mucus Rare H (None) /hpf Urine Opiates Screen Not Detected (NotDetected) Ur Oxycodone Screen Not Detected (NotDetected) Urine Methadone Screen Not Detected (NotDetected) Ur Propoxyphene Screen Not Detected (NotDetected) Ur Barbiturates Screen Not Detected (NotDetected) U Tricyclic Antidepress Not Detected (NotDetected) Ur Phencyclidine Scrn Not Detected (NotDetected) Ur Amphetamines Screen Not Detected (NotDetected) U Methamphetamines Scrn Not Detected (NotDetected) U Benzodiazepines Scrn Detected H (NotDetected) Urine Cocaine Screen Not Detected (NotDetected) U Marijuana (THC) Screen Not Detected (NotDetected) Disposition <Henry Garcia - Last Filed: 10/01/16 05:40> Time of Disposition: 08:12 <[place] Quarles - Last Filed: 10/01/16 08:12> Clinical Impression: Altered mental status, Hypoxia, Debility, Non-ST elevated myocardial infarction , CHF (congestive heart failure), Cerebral palsy, Anemia, Pleural effusion, right, Acute respiratory failure, Elevated troponin, Hypertension Disposition: ADMITTED IP TO THIS HOSP Condition: Fair Referrals: Juliet Escoto MD [Primary Care Provider] - 1-2 days
[2016-10-01 06:00] LABS: Appearance,Urine Clear (Clear); Basophils % (A) 0 %; Bilirubin,Urine Negative (Negative); CH 26.9; CHCM 30.8; Eosinophils % (A) 0 %; Glucose,Urine (UA) Negative (Negative); Granular Casts,Urine 29 /lpf (0); HCT 33.1 % (39.0-53.0); HDW 2.86; HGB 10.5 gm/dL (13.0-17.5); Hypochromasia Moderate; Ketones,Urine Negative (Negative); Leukocyte Esterase,Urine Negative (Negative); Luc # (Auto) 0.13; Luc % (Auto) 2; Lymphocytes % (A) 11 %; MCH 27.8 pg (25.0-35.0); MCHC 31.8 g/dL (31.0-37.0); MCV 87.7 fL (80.0-100.0); Monocytes # (A) 0.4 k/uL (0-1.0); Monocytes % (A) 4 %; Mucus,Urine Rare /hpf; Neutrophils # (A) 7.4 k/uL (1.3-7.7); Neutrophils % (A) 83 %; Nitrite,Urine Negative (Negative); Particle Count 2114; Protein,Urine 2+ (Negative); RBC 3.78 m/uL (4.30-5.90); RBC,Urine 2 /hpf (0-5); RDW 14.9 % (11.5-15.5); UA Billing (MACRO vs. MICRO) MICRO; Urobilinogen,Urine <2.0 mg/dL (<2.0); WBC 8.9 k/uL (3.8-10.6); WBC (Perox) 9.29; WBC,Urine 1 /hpf (0-5)
[2016-10-01 06:09] LABS: ALT 48 U/L (21-72); AST 76 U/L (17-59); Alkaline Phosphatase 74 U/L (38-126); Anion Gap 12 mmol/L; Blood Urea Nitrogen 20 mg/dL (9-20); Calcium 9.2 mg/dL (8.4-10.2); Carbon Dioxide 31 mmol/L (22-30); Chloride 99 mmol/L (98-107); Glucose 134 mg/dL (74-99); INR 1.3 (<1.1); Non-African American GFR(MDRD) >60 (>60 ml/min/1.73 sqM); Partial Thromboplastin Time 23.5 sec (22.0-30.0); Potassium 3.9 mmol/L (3.5-5.1); Prothrombin Time 13.2 sec (9.0-12.0); Sodium 142 mmol/L (137-145); Total Bilirubin 0.5 mg/dL (0.2-1.3); Total Protein 6.9 g/dL (6.3-8.2)
[2016-10-01 06:33] LABS: Creatine Kinase MB 20.5 ng/mL (0.0-2.4); Troponin I 0.037 ng/mL (0.000-0.034)
--- NOTE | 2016-10-01 07:15 | XR ---
EXAM: XR Chest, 2 Views. CLINICAL HISTORY: Reason: altered mental status TECHNIQUE: Frontal and lateral views of the chest. COMPARISON: 09/30/16 FINDINGS: No definite airspace consolidation. Questionable small right pleural effusion with right basilar atelectasis. Stable moderate cardiomegaly. No mediastinal shift. Pulmonary vascular congestion, though without definite pulmonary edema. Cardiac pacer hardware in place, with leads seen in the right atrium and right ventricle. IMPRESSION: Presence of cardiomegaly, pulmonary vascular congestion and small right pleural effusion raise concern for congestive heart failure. No evidence of airspace consolidation.
--- NOTE | 2016-10-01 07:44 | CT ---
EXAMINATION TYPE: CT brain wo con DATE OF EXAM: 10/01/2016 6:55 AM HISTORY: ams CT DLP: 1204 mGycm. Automated Exposure Control for Dose Reduction was Utilized. TECHNIQUE: CT scan of the head is performed without contrast. COMPARISON: None. FINDINGS: There is no acute intracranial hemorrhage or midline shift identified. There is diffuse v entricular and sulcal prominence consistent with diffuse age-related cerebral atrophy. There is low- attenuation in the periventricular white matter consistent with chronic small vessel ischemic change. There is near complete opacified posterior right ethmoid sinus otherwise visualized paranasal sinuse s are clear. Right globe prosthesis or calcification is noted. IMPRESSION: No acute intracranial hemorrhage or midline shift. There is moderate diffuse age-relate d cerebral atrophy and chronic small vessel ischemic change noted.
[2016-10-01] MEDS ORDERED: ASPIRIN 81 MG CHEW PO STA (08:08)
[2016-10-01] MEDS ORDERED: NITROGLYCERIN OINT 1 INCH/GM PACKET TOPICAL STA (08:08)
[2016-10-01] MEDS ORDERED: FUROSEMIDE 10 MG/ML 10 ML VIAL IV STA (08:08)
[2016-10-01] MEDS ORDERED: HEPARIN SODIUM,PORCINE 5,000 UNIT/ML 1 ML VIAL IV ONE (08:13)
[2016-10-01] MEDS ORDERED: HEPARIN SODIUM,PORCINE 5,000 UNIT/ML 1 ML VIAL IV PRN (08:13)
[2016-10-01] MEDS ORDERED: NITROGLYCERIN SL TABS 0.4 MG TAB SUBLINGUAL PRN (08:14)
[2016-10-01] MEDS ORDERED: POLYETHYLENE GLYCOL 3350 17 GM POWD.PACK PO PRN (08:17)
[2016-10-01] MEDS: HEPARIN SODIUM,PORCINE/D5W PMX 25,000 UNIT in DEXTROSE/WATER 1 500ML.BAG IV SCH (08:25)
--- NOTE | 2016-10-01 10:53 | P.CRDCN ---
History of Present Illness Consult date: 10/01/16 Requesting physician: Maria Luisa Barth Consult reason: congestive heart failure Chief complaint: Mental status changes History of present illness: This is a pleasant 81-year-old gentleman with history of cerebral palsy, hypertension, prior pacemaker implantation, he follows with Dr. Wade in the office prior seizure disorder, who was recently in the hospital being treated for pneumonia. History was obtained from the caregivers who are at his bedside. Apparently the patient awoke at home and was quite confused, they were helping him to get up and had to ease him down to the floor. His caregiver was suspicious that he may have had a seizure, as time labs he became more oriented and recognized her. She does state that he was clutching his chest while he was laying on the floor. On EMS arrival blood pressure 172/103, heart rate 100, respirations 18. EKG performed on arrival showed a paced rhythm. EKG on arrival here showed atrial sensed V paced rhythm. Chest x-ray on admission revealed cardiomegaly, pulmonary vascular congestion and small right pleural effusion. CT of the brain did not reveal any acute intracranial hemorrhage or midline shift. Chronic small vessel ischemia noted. Blood pressure 126/68 with a heart rate in the 70s. He is 93% on room air. Afebrile. Temperature on admission was 99. He continues to have a productive cough of yellow sputum this morning. Past Medical History Past Medical History: Eye Disorder, Hypertension, Osteoarthritis (OA), Prostate Disorder, Seizure Disorder, Skin Disorder Additional Past Medical History / Comment(s): Recently admitted 09/25/16 to [facility] with pneumonia/small R pleural effusion/bronchospasms/hyponatremia. 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 History of Any Multi-Drug Resistant Organisms: None Reported Past Surgical History: Hernia Repair, Pacemaker Additional Past Surgical History / Comment(s): L cataract, oral surgery, inguinal hernia repair. Additional Past Anesthesia/Blood Transfusion Reaction / Comment(s): limted family history. Pt was slow to clear anesthesia after pacemaker insertion. Type of Cardiac Device: Permanent Pacemaker Device Placement Date:: 2003 inserted and 2012 battery changed Past Psychological History: Anxiety, PTSD Additional Psychological History / Comment(s): Pt was institutionalized for years-age [age]. He was in a straight jacket at times. He came to live with Thalia Pascual and her spouse after that. He has cerebral palsey and is mentally handicapped. He has the mentation of a 3 yrs old. He can normally stand/pivot with assist and sit in wheelchair. He feeds himself fingerfood. Food must be cut small. He will try to use utensils but food falls off. He is aware when he needs to urinate or move his bowels. He gets aggitated with new experiences. He recently started with [facility] care. Smoking Status: Never smoker Past Alcohol Use History: None Reported Past Drug Use History: None Reported - Past Family History Father History Unknown: Yes Mother Family Medical History: Cancer Additional Family Medical History / Comment(s): ?lung cancer. Medications and Allergies Home Medications Medication Instructions Recorded Confirmed Type Docusate Sodium [Dulcolax Stool 100 mg PO HS 09/10/14 10/01/16 History Softener] Dutasteride [Avodart] 0.5 mg PO W/SUPPER 09/10/14 10/01/16 History Furosemide [Lasix] 20 mg PO DAILY 09/10/14 10/01/16 History Metoprolol Succinate [Toprol XL] 25 mg PO DAILY 09/10/14 10/01/16 History Multivitamins, Thera [Multivitamin 1 tab PO DAILY 09/10/14 10/01/16 History (formulary)] lamoTRIgine [LaMICtal] 300 mg PO QAM 09/10/14 10/01/16 History lamoTRIgine [LaMICtal] 350 mg PO W/SUPPER 09/10/14 10/01/16 History Aspirin EC [Ecotrin Low Dose] 81 mg PO W/SUPPER 09/24/16 10/01/16 History Calcium Carbonate [Calcium] 600 mg PO DAILY 09/24/16 10/01/16 History Mucous Relief Dm 400 mg PO TID 09/24/16 10/01/16 History Polyethylene Glycol 3350 [Miralax] 17 gm PO DAILY PRN 09/24/16 10/01/16 History Ranitidine HCl [Zantac] 150 mg PO BID 09/24/16 10/01/16 History Allergies Allergy/AdvReac Type Severity Reaction Status Date / Time diphenhydramine HCl Allergy hyper and Verified 10/01/16 07:20 [From Benadryl] aggitated Influenza Virus Vaccines Allergy Confusion Verified 10/01/16 07:20 Physical Exam Vitals: Vital Signs Temp Pulse Resp BP Pulse Ox 10/01/16 09:34 97.9 F 83 20 175/80 96 10/01/16 09:05 96 10/01/16 08:49 82 136/95 PHYSICAL EXAMINATION: HEENT: Head is atraumatic, normocephalic. Pupils equal, round. Neck is supple. There is no elevated jugular venous pressure. HEART EXAMINATION: Heart S1, S2 normal. No murmur or gallop heard. CHEST EXAMINATION: Lungs reveal scattered coarse rhonchi throughout. ABDOMEN: Soft, nontender. Bowel sounds are heard. No organomegaly noted. EXTREMITIES: 1+ peripheral pulses with trace evidence of peripheral edema and no calf tenderness noted. Patient is overall quite contracted, arms and legs bilaterally. NEUROLOGIC patient is awake, alert. Nonverbal. . Results 10/01/16 05:31 10/01/16 05:31 Current Medications Generic Name Dose Route Start Last Admin Trade Name Freq PRN Reason Stop Dose Admin Albuterol/Ipratropium 3 ml 10/01/16 12:00 Duoneb 0.5 Mg-3 Mg/3 Ml Soln INHALATION RT-QID [facility]A Amoxicillin/Clavulanate Potassium 1 each 10/01/16 10:00 Augmentin 875-125 PO Q12HR [facility]A Aspirin 325 mg 10/02/16 09:00 Aspirin PO DAILY [facility]A Budesonide 0.5 mg 10/01/16 20:00 Pulmicort INHALATION RT-BID [facility]A Calcium Carbonate 1 each 10/01/16 10:00 Oscal 500+D PO DAILY [facility]A Docusate Sodium 100 mg 10/01/16 21:00 Colace PO HS [facility] Famotidine 20 mg 10/01/16 09:00 Pepcid PO BID [facility] Finasteride 5 mg 10/01/16 17:30 Proscar PO W/SUPPER [facility] Furosemide 40 mg 10/01/16 17:00 Lasix IV 0900,1700 [facility] Guaifenesin/Dextromethorphan 1 each 10/01/16 10:00 Mucinex Dm PO TID [facility] Heparin Sodium (Porcine) 0 unit 10/01/16 08:13 Heparin IV PER PROTOCOL PRN Low PTT Protocol Heparin Sodium/Dextrose 25,000 500 mls @ 16.87 mls/hr 10/01/16 08:15 08:25 unit/ IV Solution IV 12 units/kg/hr .Q24H [place]A 16.87 mls/hr Protocol Administration 12 UNITS/KG/HR Lamotrigine 300 mg 10/01/16 10:00 Lamictal PO QAM [facility] Lamotrigine 350 mg 10/01/16 17:30 Lamictal PO W/SUPPER [facility] Metoprolol Succinate 25 mg 10/01/16 10:00 Toprol Xl PO DAILY [facility] Multivitamins 1 each 10/01/16 12:00 Theragran PO DAILY@1200 [facility] Nitroglycerin 1 inch 10/01/16 12:00 Nitro-Bid Oint TOPICAL Q6HR [facility] Nitroglycerin 0.4 mg 10/01/16 08:14 Nitrostat SUBLINGUAL Q5M PRN Chest Pain Polyethylene Glycol 17 gm 10/01/16 08:17 Miralax PO DAILY PRN Constipation Prednisone 30 mg 10/01/16 10:00 PO DAILY [facility] EKG Interpretations (text) EKG shows atrial sensed ventricular paced rhythm. Assessment and Plan Plan: Assessment and plan #1 mental status changes with possible seizure activity. CT of the brain did not reveal any acute findings. Patient has history of cerebral palsy is also mildly developmentally delayed. Nonverbal. #2 recent hospitalization with pneumonia, low-grade temp on arrival here. Currently on Rocephin and Zithromax. #3 hypertension #4 mild congestive cardiac failure, BNP level 5480. Patient's LV function unknown. Chest x-ray shows cardiomegaly, with evidence of pulmonary vascular congestion and small right-sided pleural effusion. The patient is currently on IV Lasix. #5 history of prior pacemaker implantation #6 abnormal troponin, 0.037. Could be secondary to oxygen supply and demand mismatch, however patient did complain of heaviness in his chest. We will obtain to further troponin values as well as an echocardiogram with Doppler study. Patient is not a candidate for any invasive procedures, maximize medical therapy. Plan We will obtain an echocardiogram with Doppler study. Feed the patient. Continue IV Lasix for 24 hours. Continue IV heparin for 24 hours. Decrease aspirin to 81 mg daily. Discontinue Nitropaste and start a low dose of Imdur. Further recommendations to follow. DNP note has been reviewed, I agree with a documented findings and plan of care. Patient was seen and examined.
[2016-10-01] MEDS: MULTIVITAMINS, THERA 1 EACH TAB PO SCH (11:58)
[2016-10-01] MEDS: METOPROLOL SUCCINATE (ER) 25 MG TAB.ER.24H PO SCH (11:58)
[2016-10-01] MEDS: lamoTRIgine 100 MG TAB PO SCH ×2 (11:58→17:02)
[2016-10-01] MEDS: FAMOTIDINE 20 MG TAB PO SCH ×2 (11:59→20:58)
[2016-10-01] MEDS: guaiFENesin-DM 600/30MG 1 EACH TAB.ER.12H PO SCH ×3 (11:59→20:58)
[2016-10-01] MEDS: CALCIUM CARB-VIT D 500MG-200UN 1 EACH TAB PO SCH (11:59)
[2016-10-01] MEDS ORDERED: NITROGLYCERIN OINT 1 INCH/GM PACKET TOPICAL SCH (12:00)
[2016-10-01] MEDS: predniSONE 10 MG TAB PO SCH (12:00)
[2016-10-01] MEDS: AMOXIC-POT CLAV 875-125MG 1 EACH TAB PO SCH ×2 (12:00→20:59)
[2016-10-01] MEDS: IPRATROPIUM-ALBUTEROL 3 ML NEB INHALATION SCH ×3 (12:24→20:04)
[2016-10-01] MEDS: ASPIRIN 81 MG CHEW PO SCH (12:52)
[2016-10-01] MEDS: ISOSORBIDE MONONITRATE ER 30 MG TAB.ER.24H PO SCH (12:52)
--- NOTE | 2016-10-01 13:19 | P.HPIM ---
History of Present Illness H&P Date: 10/01/16 Chief Complaint: Confusion and combative behavior Patient is an 81-year-old male who was recently admitted to [facility] and that time he had evidence of pneumonia he was discharged home however, per family he was not doing well at night he was combative and getting out of bed and not feeling well they brought him back to the hospital, chest x- ray revealed evidence of pulmonary congestion and small pleural effusion, ENP was elevated, and cardiac enzymes were elevated, he was started on IV heparin and was admitted to telemetry floor cardiology consultation was requested. Past Medical History Past Medical History: Eye Disorder, Hypertension, Osteoarthritis (OA), Prostate Disorder, Seizure Disorder, Skin Disorder Additional Past Medical History / Comment(s): Recently admitted 09/25/16 to [facility] with pneumonia/small R pleural effusion/bronchospasms/hyponatremia. 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 History of Any Multi-Drug Resistant Organisms: None Reported Past Surgical History: Hernia Repair, Pacemaker Additional Past Surgical History / Comment(s): L cataract, oral surgery, inguinal hernia repair. Additional Past Anesthesia/Blood Transfusion Reaction / Comment(s): limted family history. Pt was slow to clear anesthesia after pacemaker insertion. Type of Cardiac Device: Permanent Pacemaker Device Placement Date:: 2003 inserted and 2012 battery changed Past Psychological History: Anxiety, PTSD Additional Psychological History / Comment(s): Pt was institutionalized for years-age [age]. He was in a straight jacket at times. He came to live with Thalia Pascual and her spouse after that. He has cerebral palsey and is mentally handicapped. He has the mentation of a 3 yrs old. He can normally stand/pivot with assist and sit in wheelchair. He feeds himself fingerfood. Food must be cut small. He will try to use utensils but food falls off. He is aware when he needs to urinate or move his bowels. He gets aggitated with new experiences. He recently started with [facility]. Smoking Status: Never smoker Past Alcohol Use History: None Reported Past Drug Use History: None Reported - Past Family History Father History Unknown: Yes Mother Family Medical History: Cancer Additional Family Medical History / Comment(s): ?lung cancer. Medications and Allergies Home Medications Medication Instructions Recorded Confirmed Type Docusate Sodium [Dulcolax Stool 100 mg PO HS 09/10/14 10/01/16 History Softener] Dutasteride [Avodart] 0.5 mg PO W/SUPPER 09/10/14 10/01/16 History Furosemide [Lasix] 20 mg PO DAILY 09/10/14 10/01/16 History Metoprolol Succinate [Toprol XL] 25 mg PO DAILY 09/10/14 10/01/16 History Multivitamins, Thera [Multivitamin 1 tab PO DAILY 09/10/14 10/01/16 History (formulary)] lamoTRIgine [LaMICtal] 300 mg PO QAM 09/10/14 10/01/16 History lamoTRIgine [LaMICtal] 350 mg PO W/SUPPER 09/10/14 10/01/16 History Aspirin EC [Ecotrin Low Dose] 81 mg PO W/SUPPER 09/24/16 10/01/16 History Calcium Carbonate [Calcium] 600 mg PO DAILY 09/24/16 10/01/16 History Mucous Relief Dm 400 mg PO TID 09/24/16 10/01/16 History Polyethylene Glycol 3350 [Miralax] 17 gm PO DAILY PRN 09/24/16 10/01/16 History Ranitidine HCl [Zantac] 150 mg PO BID 09/24/16 10/01/16 History Allergies Allergy/AdvReac Type Severity Reaction Status Date / Time diphenhydramine HCl Allergy hyper and Verified 10/01/16 07:20 [From Benadryl] aggitated Influenza Virus Vaccines Allergy Confusion Verified 10/01/16 07:20 Physical Exam Vitals: Vital Signs Temp Pulse Pulse Resp BP BP Pulse Ox 10/01/16 12:34 86 10/01/16 12:25 88 10/01/16 10:20 98.7 F 79 18 126/69 93 L 10/01/16 09:34 97.9 F 83 20 175/80 96 10/01/16 09:05 96 10/01/16 08:49 82 136/95 Intake and Output 09/30/16 10/01/16 10/01/16 22:59 06:59 14:59 Other: Voiding Method Incontinent # Voids 1 HEENT head normocephalic and atraumatic Neck is supple no JVD no goiter no lymphadenopathy Chest exam reveals bilateral scattered crackles no wheezing Cardiac exam reveals regular heart sounds no murmurs Abdomen is soft nontender no organomegaly Extremity exam reveals no edema no cyanosis or clubbing Results CBC & Chem 7: 10/01/16 05:31 10/01/16 05:31 Labs: Abnormal Lab Results - Last 24 Hours (Table) 10/01/16 Range/Units 12:38 APTT 53.1 H (22.0-30.0) sec Thrombosis Risk Factor Assmnt - Choose All That Apply Any of the Below Risk Factors Present?: Yes Each Factor Represents 1 point: Acute MO, Heart failure (<1month), Obesity (BMI >25) Other Risk Factors: Yes Each Risk Factor Represents 3 Points: Age 75 years or older Other congenital or acquired thrombophilia - If yes, enter type in comment: No Thrombosis Risk Factor Assessment Total Risk Factor Score: 6 Thrombosis Risk Factor Assessment Level: High Risk Assessment and Plan Plan: #1 aggressive and combative behavior resolved patient is back to his baseline behavior #2 acute congestive heart failure exacerbation likely systolic will check echocardiogram #3 elevated cardiac enzymes including troponin patient was started on IV heparin cardiology consultation was requested #4 small right sided pleural effusion will monitor #5 recent pneumonia, without any evidence of air space consolidation on admission this time At this time continue was current management await further input from cardiology patient is stable will follow closely
[2016-10-01 13:41] LABS: Creatine Kinase MB 11.6 ng/mL (0.0-2.4); Troponin I 0.081 ng/mL (0.000-0.034)
[2016-10-01] MEDS: FUROSEMIDE 10 MG/ML 4 ML VIAL IV SCH (17:01)
[2016-10-01] MEDS: FINASTERIDE 5 MG TAB PO SCH (17:02)
[2016-10-01 18:31] LABS: Creatine Kinase MB 8.1 ng/mL (0.0-2.4)
[2016-10-01 18:32] LABS: Troponin I 0.093 ng/mL (0.000-0.034)
[2016-10-01] MEDS: BUDESONIDE 0.5 MG/2 ML NEBU INHALATION SCH (20:04)
[2016-10-01] MEDS: DOCUSATE 100 MG CAP PO SCH (20:59)
[2016-10-02 06:45] LABS: Basophils % (A) 0 %; CHCM 31.3; Eosinophils % (A) 0 %; HCT 31.1 % (39.0-53.0); HDW 2.72; HGB 9.8 gm/dL (13.0-17.5); Hypochromasia Slight; Luc # (Auto) 0.19; Luc % (Auto) 3; Lymphocytes # (A) 2.4 k/uL (1.0-4.8); Lymphocytes % (A) 33 %; MCH 27.3 pg (25.0-35.0); MCHC 31.4 g/dL (31.0-37.0); MCV 86.9 fL (80.0-100.0); Mean Platelet Volume 7.1; Monocytes # (A) 0.6 k/uL (0-1.0); Monocytes % (A) 8 %; Neutrophils # (A) 4.1 k/uL (1.3-7.7); Neutrophils % (A) 56 %; RBC 3.58 m/uL (4.30-5.90); WBC 7.3 k/uL (3.8-10.6); WBC (Perox) 7.37
[2016-10-02 06:55] LABS: ALT 47 U/L (21-72); AST 48 U/L (17-59); Alkaline Phosphatase 69 U/L (38-126); Anion Gap 9 mmol/L; Blood Urea Nitrogen 23 mg/dL (9-20); Calcium 8.9 mg/dL (8.4-10.2); Carbon Dioxide 34 mmol/L (22-30); Chloride 97 mmol/L (98-107); Cholesterol 165 mg/dL (<200); Glucose 89 mg/dL (74-99); HDL Cholesterol 71 mg/dL (40-60); Non-African American GFR(MDRD) >60 (>60 ml/min/1.73 sqM); Potassium 3.3 mmol/L (3.5-5.1); Sodium 140 mmol/L (137-145); Total Bilirubin 0.3 mg/dL (0.2-1.3); Total Protein 6.1 g/dL (6.3-8.2); Triglycerides 94 mg/dL (<150)
[2016-10-02] MEDS: BUDESONIDE 0.5 MG/2 ML NEBU INHALATION SCH ×2 (08:42→19:43)
[2016-10-02] MEDS: IPRATROPIUM-ALBUTEROL 3 ML NEB INHALATION SCH ×4 (08:43→19:43)
[2016-10-02] MEDS ORDERED: ASPIRIN 325 MG TAB PO SCH (09:00)
[2016-10-02] MEDS: CALCIUM CARB-VIT D 500MG-200UN 1 EACH TAB PO SCH (09:22)
[2016-10-02] MEDS: guaiFENesin-DM 600/30MG 1 EACH TAB.ER.12H PO SCH ×3 (09:22→22:08)
[2016-10-02] MEDS: AMOXIC-POT CLAV 875-125MG 1 EACH TAB PO SCH (09:23)
[2016-10-02] MEDS: predniSONE 10 MG TAB PO SCH (09:23)
[2016-10-02] MEDS: ISOSORBIDE MONONITRATE ER 30 MG TAB.ER.24H PO SCH (09:23)
[2016-10-02] MEDS: METOPROLOL SUCCINATE (ER) 25 MG TAB.ER.24H PO SCH (09:23)
[2016-10-02] MEDS: lamoTRIgine 100 MG TAB PO SCH ×2 (09:24→16:32)
[2016-10-02] MEDS: ASPIRIN 81 MG CHEW PO SCH (09:24)
[2016-10-02] MEDS: FAMOTIDINE 20 MG TAB PO SCH ×2 (09:24→19:59)
[2016-10-02] MEDS: HEPARIN SODIUM,PORCINE/D5W PMX 25,000 UNIT in DEXTROSE/WATER 1 500ML.BAG IV SCH (09:36)
[2016-10-02] MEDS ORDERED: Potassium Replacement Protocol 1 EACH MISC MISCELLANE PRN (10:21)
[2016-10-02 10:35] VITALS: BMI 29.9
[2016-10-02] MEDS: POTASSIUM CHLORIDE ER 20 MEQ TAB.ER PO SCH ×2 (11:27→11:59)
--- NOTE | 2016-10-02 11:34 | ECHOF ---
Referral Reason:cp MEASUREMENTS -------- HEIGHT: 152.4 cm WEIGHT: 70.3 kg BP: 139/78 RVIDd: 2.8 cm (< 3.3) IVSd: 1.4 cm (0.6 - 1.1) LVIDd: 3.8 cm (3.9 - 5.3) LVPWd: 1.5 cm (0.6 - 1.1) IVSs: 2.0 cm LVIDs: 2.9 cm LVPWs: 1.5 cm LAESV Index (A-L): 29.55 ml/m Ao Diam: 3.6 cm (2.0 - 3.7) AV Cusp: 2.1 cm (1.5 - 2.6) MV EXCURSION: 10.759 mm (> 18.000) MV EF SLOPE: 30 mm/s (70 - 150) EPSS: 0.7 cm MV E Shayne: 0.80 m/s MV DecT: 169 ms MV A Shayne: 1.26 m/s MV E/A Ratio: 0.64 AR PHT: 676 ms RAP: 5.00 mmHg RVSP: 51.59 mmHg FINDINGS -------- Paced rhythm. This was a technically adequate study. There is moderate concentric left ventricular hypertrophy. Overall left ventricular systolic function is normal with, an EF between 55 - 60 %. The right ventricle is normal in size. LA is midly dilated 29-33ml/m2. The right atrium is normal in size. Aortic valve is trileaflet and is mildly thickened. There is mild aortic regurgitation. The mitral valve leaflets are mildly thickened. Mild mitral annular calcification present. Mild mitral regurgitation is present. Moderate tricuspid regurgitation present. There is moderate pulmonary hypertension. The right ventricular systolic pressure, as measured by Doppler, is 51.59mmHg. The pulmonic valve was not well visualized. The aortic root size is normal. Normal inferior vena cava with normal inspiratory collapse consistent with estimated right atrial pressure of 5 mmHg. There is no pericardial effusion. CONCLUSIONS -------- 1. Paced rhythm. 2. The mitral valve leaflets are mildly thickened. 3. Mild mitral annular calcification present. 4. Mild mitral regurgitation is present. 5. Moderate tricuspid regurgitation present. 6. There is moderate pulmonary hypertension. 7. The right ventricular systolic pressure, as measured by Doppler, is 51.59mmHg. 8. The pulmonic valve was not well visualized. 9. The aortic root size is normal. 10. Normal inferior vena cava with normal inspiratory collapse consistent with estimated right atrial pressure of 5 mmHg. 11. There is no pericardial effusion. 12. This was a technically adequate study. 13. There is moderate concentric left ventricular hypertrophy. 14. Overall left ventricular systolic function is normal with, an EF between 55 - 60 %. 15. The right ventricle is normal in size. 16. LA is midly dilated 29-33ml/m2. 17. The right atrium is normal in size. 18. Aortic valve is trileaflet and is mildly thickened. 19. There is mild aortic regurgitation. CHANGE COORDINATOR: Nile Vaca RDCS
[2016-10-02] MEDS: FUROSEMIDE 10 MG/ML 4 ML VIAL IV SCH (12:00)
--- NOTE | 2016-10-02 14:34 | P.PN ---
Subjective Principal diagnosis: Non-STEMI This is a pleasant 81-year-old gentleman with history of cerebral palsy, hypertension, prior pacemaker implantation, he follows with Dr. Wade in the office prior seizure disorder, who was recently in the hospital being treated for pneumonia. Patient was noted to the hospital with mental status changes, it appears he may have ruled in for non-Q-wave myocardial infarction. Echocardiogram with Doppler study was performed which revealed an ejection fraction of 55-60%. Overall the patient is feeling much better today, caregivers at bedside. Arrangements being made for possible discharge tomorrow. Hemoglobin today 9.8, potassium 3.3, BUN 23, creatinine 0.8. Patient is on a baby aspirin daily, metoprolol tartrate 25 mg daily, Imdur 30 mg daily, we will initiate statin, and low-dose DANIEL inhibitor today to maximize his medical therapy. Physical therapy has been requested as well. Objective - Vital Signs Vital signs: Vital Signs Temp 99.1 F 10/02/16 11:28 Pulse 86 10/02/16 12:15 Resp 20 10/02/16 11:28 BP 139/89 10/02/16 11:28 Pulse Ox 91 L 10/02/16 11:28 Intake & Output 10/01/16 10/02/16 10/02/16 18:59 06:59 18:59 Intake Total 706.9 295.9 786.716 Output Total 300 2 450 Balance 406.9 293.9 336.716 Weight 68.5 kg 69.5 kg Intake: IV 110 295.9 0.9 110 110 Heparin Sodium,Porcine/ 185.9 D5w Pmx 25,000 unit In Dextrose/Water 1 500ml. bag @ 12 UNITS/KG/HR 16. 87 mls/hr IV .Q24H [facility] Rx #:[id number] Intake, IV Titration 116.9 426.716 Amount Heparin Sodium,Porcine/ 116.9 426.716 D5w Pmx 25,000 unit In Dextrose/Water 1 500ml. bag @ 12 UNITS/KG/HR 16. 87 mls/hr IV .Q24H [place] Rx #:[id number] Oral 480 360 Output: Urine 300 450 Urine/Stool Mix 2 Other: Voiding Method Diaper Diaper Urinal Diaper # Voids 1 1 - Exam PHYSICAL EXAMINATION: HEENT: Head is atraumatic, normocephalic. Pupils equal, round. Neck is supple. There is no elevated jugular venous pressure. HEART EXAMINATION: Heart S1, S2 normal. No murmur or gallop heard. CHEST EXAMINATION: Lungs are to auscultation. ABDOMEN: Soft, nontender. Bowel sounds are heard. No organomegaly noted. EXTREMITIES: 1+ peripheral pulses with trace evidence of peripheral edema and no calf tenderness noted. Patient is overall quite contracted, arms and legs bilaterally. NEUROLOGIC patient is awake, alert. Nonverbal. . - Labs CBC & Chem 7: 10/02/16 06:14 10/02/16 06:14 Labs: Abnormal Lab Results - Last 24 Hours (Table) 10/01/16 10/02/16 10/02/16 Range/Units 17:28 06:14 06:14 RBC 3.58 L (4.30-5.90) m/uL Hgb 9.8 L (13.0-17.5) gm/dL Hct 31.1 L (39.0-53.0) % APTT (22.0-30.0) sec Potassium 3.3 L (3.5-5.1) mmol/L Chloride 97 L (98-107) mmol/L Carbon Dioxide 34 H (22-30) mmol/L BUN 23 H (9-20) mg/dL Total Creatine Kinase 418 H (55-170) U/L CK-MB (CK-2) 8.1 H* (0.0-2.4) ng/mL Troponin I 0.093 H* (0.000-0.034) ng/mL Total Protein 6.1 L (6.3-8.2) g/dL HDL Cholesterol 71 H (40-60) mg/dL 10/02/16 Range/Units 06:14 RBC (4.30-5.90) m/uL Hgb (13.0-17.5) gm/dL Hct (39.0-53.0) % APTT 42.4 H (22.0-30.0) sec Potassium (3.5-5.1) mmol/L Chloride (98-107) mmol/L Carbon Dioxide (22-30) mmol/L BUN (9-20) mg/dL Total Creatine Kinase (55-170) U/L CK-MB (CK-2) (0.0-2.4) ng/mL Troponin I (0.000-0.034) ng/mL Total Protein (6.3-8.2) g/dL HDL Cholesterol (40-60) mg/dL Assessment and Plan Plan: Assessment and plan #1 mental status changes with possible seizure activity. CT of the brain did not reveal any acute findings. Patient has history of cerebral palsy is also mildly developmentally delayed. Nonverbal. #2 recent hospitalization with pneumonia, low-grade temp on arrival here. Currently on Rocephin and Zithromax. #3 hypertension #4 mild congestive cardiac failure, diastolic acute on chronic. #5 history of prior pacemaker implantation #6 possible non-Q-wave myocardial infarction, we'll maximize the patient's medical therapy. Plan EchoCardiogram with Doppler study revealed normal left ventricular systolic function. We will add a statin and DANIEL inhibitor to the patient's medication regime today. Plan for possible discharge home tomorrow DNP note has been reviewed, I agree with a documented findings and plan of care. Patient was seen and examined.
--- NOTE | 2016-10-02 15:34 | P.PN ---
Subjective Principal diagnosis: Mental Status changes Patient is an 81-year-old male who was recently admitted to [facility] for pneumonia he received a course of IV antibiotic and was discharged home on oral Augmentin he returned 2 days later to the hospital due to an episode of confusion and agitation, in the emergency room patient had slightly elevated troponin level he was admitted to telemetry floor and cardiology consultation was requested. Patient has a known history of cerebral palsy, he has very poor, medications skills, he does not relay any complaint of chest pain Objective - Vital Signs Vital signs: Vital Signs Temp 99.1 F 10/02/16 15:02 Pulse 90 10/02/16 15:02 Resp 20 10/02/16 15:02 BP 138/83 10/02/16 15:02 Pulse Ox 93 L 10/02/16 15:02 Intake & Output 10/01/16 10/02/16 10/02/16 18:59 06:59 18:59 Intake Total 706.9 295.9 866.716 Output Total 300 2 950 Balance 406.9 293.9 -83.284 Weight 68.5 kg 69.5 kg Intake: IV 110 295.9 80 0.9 110 110 80 Heparin Sodium,Porcine/ 185.9 D5w Pmx 25,000 unit In Dextrose/Water 1 500ml. bag @ 12 UNITS/KG/HR 16. 87 mls/hr IV .Q24H [facility] Rx #:[id number] Intake, IV Titration 116.9 426.716 Amount Heparin Sodium,Porcine/ 116.9 426.716 D5w Pmx 25,000 unit In Dextrose/Water 1 500ml. bag @ 12 UNITS/KG/HR 16. 87 mls/hr IV .Q24H [facility] Rx #:[id number] Oral 480 360 Output: Urine 300 950 Urine/Stool Mix 2 Other: Voiding Method Diaper Diaper Urinal Diaper # Voids 1 1 - Exam In general patient is alert and nonverbal in no apparent distress HEENT head normocephalic and atraumatic Neck is supple no JVD no goiter no lymphadenopathy Chest exam reveals a few scattered crackles no wheezing Cardiac exam reveals regular heart sounds no gallops no murmurs Abdomen is soft nontender no organomegaly Extremity exam reveals no edema no cyanosis or clubbing - Labs CBC & Chem 7: 10/02/16 06:14 10/02/16 06:14 Labs: Abnormal Lab Results - Last 24 Hours (Table) 10/01/16 10/02/16 10/02/16 Range/Units 17:28 06:14 06:14 RBC 3.58 L (4.30-5.90) m/uL Hgb 9.8 L (13.0-17.5) gm/dL Hct 31.1 L (39.0-53.0) % APTT (22.0-30.0) sec Potassium 3.3 L (3.5-5.1) mmol/L Chloride 97 L (98-107) mmol/L Carbon Dioxide 34 H (22-30) mmol/L BUN 23 H (9-20) mg/dL Total Creatine Kinase 418 H (55-170) U/L CK-MB (CK-2) 8.1 H* (0.0-2.4) ng/mL Troponin I 0.093 H* (0.000-0.034) ng/mL Total Protein 6.1 L (6.3-8.2) g/dL HDL Cholesterol 71 H (40-60) mg/dL 10/02/16 Range/Units 06:14 RBC (4.30-5.90) m/uL Hgb (13.0-17.5) gm/dL Hct (39.0-53.0) % APTT 42.4 H (22.0-30.0) sec Potassium (3.5-5.1) mmol/L Chloride (98-107) mmol/L Carbon Dioxide (22-30) mmol/L BUN (9-20) mg/dL Total Creatine Kinase (55-170) U/L CK-MB (CK-2) (0.0-2.4) ng/mL Troponin I (0.000-0.034) ng/mL Total Protein (6.3-8.2) g/dL HDL Cholesterol (40-60) mg/dL Assessment and Plan Plan: #1 aggressive and combative behavior resolved patient is back to his baseline behavior #2 acute congestive heart failure exacerbation likely systolic will check echocardiogram #3 elevated cardiac enzymes including troponin patient was started on IV heparin cardiology consultation was requested, input reviewed, recommending maximizing medical treatment, no intervention was recommended at this time #4 small right sided pleural effusion will monitor #5 recent pneumonia, patient is having elevated temperatures again today, will discontinue Augmentin and 3 start IV Rocephin and Zithromax At this time continue was current management await further input from cardiology patient is stable will follow closely
[2016-10-02] MEDS: MULTIVITAMINS, THERA 1 EACH TAB PO SCH (16:28)
[2016-10-02] MEDS ORDERED: AZITHROMYCIN 500 MG in SODIUM CHLORIDE 0.9% 250 ML IVPB SCH (16:30)
[2016-10-02] MEDS: FINASTERIDE 5 MG TAB PO SCH (16:32)
[2016-10-02] MEDS: methylPREDNISolone SOD SUCCI 125 MG/2 ML VIAL IV SCH (17:44)
[2016-10-02] MEDS: PIPERACILLIN-TAZOBACTAM 3.375 GM in DEXTROSE/WATER 1 50ML.BAG IVPB SCH (17:44)
[2016-10-02] MEDS: DOCUSATE 100 MG CAP PO SCH (19:59)
[2016-10-02] MEDS: LEVOFLOXACIN 500MG-D5W PMX 500 MG in DEXTROSE/WATER 1 100ML.BAG IVPB SCH (22:07)
[2016-10-03] MEDS: PIPERACILLIN-TAZOBACTAM 3.375 GM in DEXTROSE/WATER 1 50ML.BAG IVPB SCH ×3 (00:44→17:04)
[2016-10-03] MEDS: methylPREDNISolone SOD SUCCI 125 MG/2 ML VIAL IV SCH ×4 (00:45→22:40)
--- NOTE | 2016-10-03 06:41 | CONS ---
DATE OF CONSULTATION: Nael Abrams is an 81-year-old male who recently had been admitted to [facility] with pneumonia. He was discharged home and started to become confused and combative. He also was noted to have whitish secretions dripping down the side of his mouth along with gurgling breath sounds. He subsequently came into the ED and was admitted for further evaluation. He has a known history of cerebral palsy and is not very communicative. Per his caregiver who has taken care of him for the last 15 years. He does have a cough most days of the year, but no clear history of smoking and recently again was admitted for pneumonia. Past medical history is positive for large hiatal hernia with intrathoracic stomach, history of pacemaker placement, history of eye disorder, seizures, benign prostatic hypertrophy, blindness in his right eye, anxiety, PTSD, osteoarthritis, hypertension. Patient is allergic to BENADRYL and INFLUENZA VACCINE. Family history is unknown. Mother may have had a questionable history of lung cancer. SOCIAL HISTORY: The patient is a nonsmoker, does not drink alcohol or use any other illicit drugs. Medications prior to admission were prednisone 30 mg; Lamictal, ranitidine, polyethylene glycol, multivitamins, Mucus Relief DM really, Toprol XL; DuoNeb, but per the caregiver, the patient does not have a nebulizer; Lasix, Avodart, Dulcolax stool softener, calcium carbonate, Pulmicort, Ecotrin and Augmentin. Review of systems are noncontributory. On physical examination, blood pressure is 138/83, respiratory rate 20, pulse rate of 90, temperature 99.1. HEENT reveals blindness in the right eye. There is some drooling from the mouth. Chest reveals scattered rhonchi with end expiratory wheeze. Some basal crackles. Cardiovascular system reveals S1 and S2. No S3, no S4. No murmurs. Abdomen is soft. There is trace pedal edema. White count is 7.3, hemoglobin 9.8. PTT of 42.4. The patient is on heparin. Sodium is 140, potassium 3.3, chloride 97, bicarb 34, BUN 23, creatinine 0.8. CPK is 418. Troponin of 0.093. Total protein of 6.1. Albumin of 3.5. Chest x-ray shows some cardiomegaly, but large opacity, which seems to be his intrathoracic stomach and large hiatal hernia. There is a possible early infiltrate or opacification in the left lung base and some opacification in the right lung base as well. IMPRESSION AT THIS TIME: 1. Acute respiratory failure secondary to aspiration-type pneumonia. 2. Bronchospasm secondary to occult asthma is likely. 3. Possible chronic aspiration with hiatal hernia and stasis of food. Recent barium swallow failed to show keri aspiration, but I believe his ( ) aspiration may be regurgitation of the food that is in the intrathoracic hiatal hernia. 4. Possible acute myocardial infarction. 5. Hypokalemia. 6. Congestive heart failure. At this point in time, from a pulmonary standpoint, would stop his Rocephin and azithromycin; cover him with Zosyn and Levaquin, which will cover for anaerobes as well as gram negatives given that his source may be aspiration. Would keep him on IV steroids, bronchodilators, aerosolized steroids. See if we can arrange a suction machine as well as nebulizers as an outpatient. Agree with cardiology consult and heparin at this point. We will follow this patient closely during the hospital stay and appreciate the opportunity to participate in his care. Because of his recent stay and recurrence, we will have ID further evaluate the patient. I would like thank you for allowing me to participate in his care.
[2016-10-03 07:20] LABS: Basophils % (A) 0 %; CH 26.4; CHCM 30.1; Eosinophils % (A) 0 %; HCT 35.4 % (39.0-53.0); HDW 2.67; HGB 10.7 gm/dL (13.0-17.5); Hypochromasia Marked; Luc # (Auto) 0.11; Luc % (Auto) 1; Lymphocytes # (A) 1.2 k/uL (1.0-4.8); Lymphocytes % (A) 15 %; MCH 26.6 pg (25.0-35.0); MCHC 30.2 g/dL (31.0-37.0); MCV 88.1 fL (80.0-100.0); Mean Platelet Volume 7.4; Monocytes # (A) 0.3 k/uL (0-1.0); Monocytes % (A) 4 %; Neutrophils # (A) 6.5 k/uL (1.3-7.7); Neutrophils % (A) 80 %; RBC 4.02 m/uL (4.30-5.90); RDW 14.9 % (11.5-15.5); WBC (Perox) 8.61
[2016-10-03 07:28] LABS: ALT 45 U/L (21-72); AST 36 U/L (17-59); Alkaline Phosphatase 72 U/L (38-126); Anion Gap 13 mmol/L; Blood Urea Nitrogen 25 mg/dL (9-20); Calcium 9.6 mg/dL (8.4-10.2); Carbon Dioxide 30 mmol/L (22-30); Chloride 99 mmol/L (98-107); Glucose 131 mg/dL (74-99); Non-African American GFR(MDRD) >60 (>60 ml/min/1.73 sqM); Potassium 4.5 mmol/L (3.5-5.1); Sodium 142 mmol/L (137-145); Total Bilirubin 0.6 mg/dL (0.2-1.3); Total Protein 7.1 g/dL (6.3-8.2)
[2016-10-03] MEDS: BUDESONIDE 0.5 MG/2 ML NEBU INHALATION SCH ×2 (07:37→21:08)
[2016-10-03] MEDS: IPRATROPIUM-ALBUTEROL 3 ML NEB INHALATION SCH ×4 (07:37→21:08)
[2016-10-03] MEDS: FAMOTIDINE 20 MG TAB PO SCH ×2 (09:10→22:40)
[2016-10-03] MEDS: ASPIRIN 81 MG CHEW PO SCH (09:10)
[2016-10-03] MEDS: ISOSORBIDE MONONITRATE ER 30 MG TAB.ER.24H PO SCH (09:10)
[2016-10-03] MEDS: METOPROLOL SUCCINATE (ER) 25 MG TAB.ER.24H PO SCH (09:10)
[2016-10-03] MEDS: guaiFENesin-DM 600/30MG 1 EACH TAB.ER.12H PO SCH ×3 (09:10→22:42)
[2016-10-03] MEDS: CALCIUM CARB-VIT D 500MG-200UN 1 EACH TAB PO SCH (09:10)
[2016-10-03] MEDS: lamoTRIgine 100 MG TAB PO SCH ×2 (09:11→17:12)
[2016-10-03] MEDS: ACETAMINOPHEN TAB 500 MG TAB PO PRN ×2 (10:57→16:40)
[2016-10-03] MEDS: MULTIVITAMINS, THERA 1 EACH TAB PO SCH (12:34)
--- NOTE | 2016-10-03 13:02 | P.PN ---
Subjective Principal diagnosis: Altered mental status Patient seen and examined with his family at bedside. The patient is eating lunch and doing very well. His family is asking for a nebulizer and suction for home. They don't want him discharged "too soon." Objective - Vital Signs Vital signs: Vital Signs Temp 99.5 F 10/03/16 11:06 Pulse 88 10/03/16 11:47 Resp 18 10/03/16 11:24 BP 122/89 10/03/16 11:06 Pulse Ox 93 L 10/03/16 11:06 Intake & Output 10/02/16 10/03/16 10/03/16 18:59 06:59 18:59 Intake Total 1106.716 280 25 Output Total 1250 300 Balance -143.284 -20 25 Weight 69.5 kg 68.5 kg 68.5 kg Intake: IV 80 0.9 80 Intake, IV Titration 426.716 Amount Heparin Sodium,Porcine/ 426.716 D5w Pmx 25,000 unit In Dextrose/Water 1 500ml. bag @ 12 UNITS/KG/HR 16. 87 mls/hr IV .Q24H [facility] Rx #:[id number] Oral 600 280 25 Output: Urine 1250 300 Other: Voiding Method Urinal Urinal Urinal Diaper Diaper Diaper # Voids 1 1 # Bowel Movements 1 - Exam Gen.: Patient is alert, no acute distress, cognitively delayed Cardiovascular: Regular rate and rhythm, S1/S2 Lungs: Scattered rhonchi Abdomen: Soft nontender nondistended positive bowel sounds Extremities: Trace edema - Labs CBC & Chem 7: 10/03/16 06:35 10/03/16 06:31 Labs: Abnormal Lab Results - Last 24 Hours (Table) 10/03/16 10/03/16 Range/Units 06:31 06:35 RBC 4.02 L (4.30-5.90) m/uL Hgb 10.7 L (13.0-17.5) gm/dL Hct 35.4 L (39.0-53.0) % MCHC 30.2 L (31.0-37.0) g/dL BUN 25 H (9-20) mg/dL Glucose 131 H (74-99) mg/dL Assessment and Plan Plan: Acute hypoxic respiratory failure Aspiration pneumonia Bronchospasm Possible underlying asthma Likely underlying chronic aspiration Hiatal hernia NSTEMI Metabolic encephalopathy Acute exacerbation of CHF, diastolic Severe pulmonary hypertension with an RVSP of 51 mmHg Small right-sided pleural effusion Recent hospitalization for pneumonia Hypertension History of prior pacemaker Cerebral palsy Chronic debility History of seizure disorder Anemia, chronic, stable O2 to maintain saturation greater than or equal to 88% Antibiotics Aspiration precautions Pulmonary hygiene IV steroids Bronchodilators Pulmicort Patient will need a home nebulizer GI and DVT prophylaxis: Heparin, Pepcid
--- NOTE | 2016-10-03 14:29 | P.PN ---
Subjective Principal diagnosis: Non-STEMI This is a pleasant 81-year-old gentleman with history of cerebral palsy, hypertension, prior pacemaker implantation, he follows with Dr. Wade in the office prior seizure disorder, who was recently in the hospital being treated for pneumonia. Patient was noted to the hospital with mental status changes, it appears he may have ruled in for non-Q-wave myocardial infarction. Echocardiogram with Doppler study was performed which revealed an ejection fraction of 55-60%. Overall the patient is feeling much better today, caregivers at bedside. Arrangements being made for possible discharge tomorrow. Hemoglobin today 10.7, potassium 4.5, BUN 25, creatinine 0.6. Patient is on a baby aspirin daily, metoprolol tartrate 25 mg daily, Imdur 30 mg daily, statin, and low-dose DANIEL inhibitor .patient is doing much better overall today. From our perspective he may be able to be discharged once cleared by the primary. Objective - Vital Signs Vital signs: Vital Signs Temp 99.5 F 10/03/16 11:06 Pulse 88 10/03/16 11:47 Resp 18 10/03/16 11:24 BP 122/89 10/03/16 11:06 Pulse Ox 93 L 10/03/16 11:06 Intake & Output 10/02/16 10/03/16 10/03/16 18:59 06:59 18:59 Intake Total 1106.716 280 75 Output Total 1250 300 Balance -143.284 -20 75 Weight 69.5 kg 68.5 kg 68.5 kg Intake: IV 80 0.9 80 Intake, IV Titration 426.716 50 Amount Heparin Sodium,Porcine/ 426.716 D5w Pmx 25,000 unit In Dextrose/Water 1 500ml. bag @ 12 UNITS/KG/HR 16. 87 mls/hr IV .Q24H [facility] Rx #:[id number] Piperacillin-Tazobactam 3 50 .375 gm In Dextrose/Water 1 50ml.bag @ 12.5 mls/hr IVPB Q8HR [facility] Rx#: [id number] Oral 600 280 25 Output: Urine 1250 300 Other: Voiding Method Urinal Urinal Urinal Diaper Diaper Diaper # Voids 1 1 # Bowel Movements 1 - Exam PHYSICAL EXAMINATION: HEENT: Head is atraumatic, normocephalic. Pupils equal, round. Neck is supple. There is no elevated jugular venous pressure. HEART EXAMINATION: Heart S1, S2 normal. No murmur or gallop heard. CHEST EXAMINATION: Lungs are to auscultation. ABDOMEN: Soft, nontender. Bowel sounds are heard. No organomegaly noted. EXTREMITIES: 1+ peripheral pulses with trace evidence of peripheral edema and no calf tenderness noted. Patient is overall quite contracted, arms and legs bilaterally. NEUROLOGIC patient is awake, alert. Nonverbal. . - Labs CBC & Chem 7: 10/03/16 06:35 10/03/16 06:31 Labs: Abnormal Lab Results - Last 24 Hours (Table) 10/03/16 10/03/16 Range/Units 06:31 06:35 RBC 4.02 L (4.30-5.90) m/uL Hgb 10.7 L (13.0-17.5) gm/dL Hct 35.4 L (39.0-53.0) % MCHC 30.2 L (31.0-37.0) g/dL BUN 25 H (9-20) mg/dL Glucose 131 H (74-99) mg/dL Assessment and Plan Plan: Assessment and plan #1 mental status changes with possible seizure activity. CT of the brain did not reveal any acute findings. Patient has history of cerebral palsy is also mildly developmentally delayed. Nonverbal. #2 recent hospitalization with pneumonia, low-grade temp on arrival here. Currently on Rocephin and Zithromax. #3 hypertension #4 mild congestive cardiac failure, diastolic acute on chronic. #5 history of prior pacemaker implantation #6 possible non-Q-wave myocardial infarction, we'll maximize the patient's medical therapy. Plan from a cardiology's perspective, we'll continue the patient on his current medications. He may be able to be discharged home from our perspective. We will follow him now on an as-needed basis only, please don't hesitate to call with any questions. We will make him a follow-up appointment with Dr. Wade in the office post discharge. DNP note has been reviewed, I agree with a documented findings and plan of care. Patient was seen and examined.
[2016-10-03] MEDS: HEPARIN SODIUM,PORCINE 5,000 UNIT/ML 1 ML VIAL SQ SCH (17:05)
--- NOTE | 2016-10-03 17:07 | P.PN ---
Subjective Principal diagnosis: Mental Status changes Patient is an 81-year-old male who was recently admitted to [facility] for pneumonia he received a course of IV antibiotic and was discharged home on oral Augmentin he returned 2 days later to the hospital due to an episode of confusion and agitation, in the emergency room patient had slightly elevated troponin level he was admitted to telemetry floor and cardiology consultation was requested. Patient has a known history of cerebral palsy, he has very poor, medications skills, he does not relay any complaint of chest pain Objective - Vital Signs Vital signs: Vital Signs Temp 99.3 F 10/03/16 15:22 Pulse 89 10/03/16 16:00 Resp 18 10/03/16 16:00 BP 128/87 10/03/16 15:22 Pulse Ox 93 L 10/03/16 11:06 Intake & Output 10/02/16 10/03/16 10/03/16 18:59 06:59 18:59 Intake Total 1106.716 280 75 Output Total 1250 300 Balance -143.284 -20 75 Weight 69.5 kg 68.5 kg 68.5 kg Intake: IV 80 0.9 80 Intake, IV Titration 426.716 50 Amount Heparin Sodium,Porcine/ 426.716 D5w Pmx 25,000 unit In Dextrose/Water 1 500ml. bag @ 12 UNITS/KG/HR 16. 87 mls/hr IV .Q24H [facility] Rx #:[id number] Piperacillin-Tazobactam 3 50 .375 gm In Dextrose/Water 1 50ml.bag @ 12.5 mls/hr IVPB Q8HR [facility] Rx#: [id number] Oral 600 280 25 Output: Urine 1250 300 Other: Voiding Method Urinal Urinal Urinal Diaper Diaper Diaper # Voids 1 1 # Bowel Movements 1 - Exam In general patient is alert and nonverbal in no apparent distress HEENT head normocephalic and atraumatic Neck is supple no JVD no goiter no lymphadenopathy Chest exam reveals a few scattered crackles no wheezing Cardiac exam reveals regular heart sounds no gallops no murmurs Abdomen is soft nontender no organomegaly Extremity exam reveals no edema no cyanosis or clubbing - Labs CBC & Chem 7: 10/03/16 06:35 10/03/16 06:31 Labs: Abnormal Lab Results - Last 24 Hours (Table) 10/03/16 10/03/16 Range/Units 06:31 06:35 RBC 4.02 L (4.30-5.90) m/uL Hgb 10.7 L (13.0-17.5) gm/dL Hct 35.4 L (39.0-53.0) % MCHC 30.2 L (31.0-37.0) g/dL BUN 25 H (9-20) mg/dL Glucose 131 H (74-99) mg/dL Assessment and Plan Plan: #1 aggressive and combative behavior resolved patient is back to his baseline behavior #2 acute congestive heart failure exacerbation likely systolic will check echocardiogram #3 elevated cardiac enzymes including troponin patient was started on IV heparin cardiology consultation was requested, input reviewed, recommending maximizing medical treatment, no intervention was recommended at this time #4 small right sided pleural effusion will monitor #5 recent pneumonia, patient is having elevated temperatures again today, will discontinue Augmentin and 3 start IV Rocephin and Zithromax At this time continue with current management Cardiology input reviewed no intervention recommended at this time Possible discharge to home tomorrow
[2016-10-03] MEDS: FINASTERIDE 5 MG TAB PO SCH (17:11)
[2016-10-03] MEDS: DOCUSATE 100 MG CAP PO SCH (22:40)
[2016-10-04] MEDS: PIPERACILLIN-TAZOBACTAM 3.375 GM in DEXTROSE/WATER 1 50ML.BAG IVPB SCH ×3 (00:15→17:21)
[2016-10-04] MEDS: LEVOFLOXACIN 500MG-D5W PMX 500 MG in DEXTROSE/WATER 1 100ML.BAG IVPB SCH (00:19)
[2016-10-04] MEDS: HEPARIN SODIUM,PORCINE 5,000 UNIT/ML 1 ML VIAL SQ SCH ×3 (00:28→17:17)
--- NOTE | 2016-10-04 06:28 | CONS ---
DATE OF CONSULTATION: DATE OF SERVICE: 10/03/2016 REASON FOR CONSULTATION: Aspiration pneumonia. HISTORY OF PRESENT ILLNESS: The patient is an 81-year-old male with past medical history significant for cerebral palsy. The patient also has a history of hiatal hernia with intrathoracic stomach. Has been brought into the ER at [facility] on 10/01/2016 with chief complaints of increased shortness of breath where the patient also noticed to become more confused and combative. He did have a chest x-ray done in the ER that was suggestive of possible congestive heart failure with elevated troponin. Patient subsequently has been admitted to the telemetry floor. The history mostly provided by the caregiver did mention that the patient did have some frothy secretion at his mouth and that has increased recently. He also had a cough, but is not able to bring any significant amount of sputum. The patient's diet has been adjusted to be pureed diet though the caregiver did not mention significant choking or coughing on the food. No nausea or vomiting has been noticed or any diarrhea. Subsequently, the patient though initiated with Rocephin and azithromycin was switched over to Zosyn and Levaquin. I was asked to see the patient for further recommendation regarding antibiotic. Most of the information has been obtained from the caregiver and the patient unable to provide history because of underlying cerebral palsy. REVIEW OF SYSTEMS: Could not be reliably obtained with the positive points has been mentioned in the HPI. PAST MEDICAL HISTORY: Significant for cerebral palsy, benign prostatic hypertrophy, anxiety, PTSD, osteoarthritis, hypertension, and hiatal hernia. PAST SURGICAL HISTORY: Pacemaker placement. SOCIAL HISTORY: No history of smoking, drinking or drug use. FAMILY HISTORY: No pertinent findings noticed. ALLERGIES: Allergic to BENADRYL and INFLUENZA VACCINE. Medications currently include the patient is on Tylenol, DuoNeb, aspirin, Pulmicort, Os-Oh D, Colace, Pepcid, Proscar, Mucinex, heparin, Imdur, Lamictal, levofloxacin, Solu-Medrol, Toprol XL, Theragran, Nitrostat, piperacillin tazobactam. On examination, blood pressure is 128/87 with a pulse of 84, temperature 99.3. General description is an elderly male, lying in bed in no distress. No tachypnea or accessory muscle of respiration use. HEENT examination shows pallor. No scleral icterus. Oral mucous membranes dry. NECK: Trachea central. There is no thyromegaly. LUNGS: Unlabored breathing with decreased breath sounds at the bases. No wheeze or crackle. HEART: S1, S2. Regular rate and rhythm. ABDOMEN: Soft, no tenderness. EXTREMITIES: No edema of feet. SKIN EXAMINATION: No rash or mass palpable. NEUROLOGICAL: The patient seemed to be awake, orientation could not be done because of underlying mental condition. LABS: Hemoglobin is 10.7, white count 8 with a BUN of 25, creatinine 0.67. BNP slightly elevated. Blood culture currently pending. DIAGNOSTIC IMPRESSION AND PLAN: Patient admitted to hospital with difficulty breathing with some combativeness did have some purulent respitory secretion with a question of possible aspiration pneumonitis not entirely excluded as patient does have high risk because of his intrathoracic stomach from hiatal hernia with regurgitation of fluid or aspiration on his oral secretions, which is revealed a polymicrobial fannie. PLAN: 1. Will try to obtain sputum for gram stain, culture and sensitivity. 2. Zosyn and Levaquin to continue ; however, the patient continued to improve and cultures negative, will finish therapy with p.o. Avelox. 3. Will follow up on the clinical condition and cultures to further adjust the medication if needed. Thank you for this consultation. Will follow this patient along with you. Family present at the bedside, their questions were answered. ALYSSA
[2016-10-04 06:38] LABS: Basophils % (A) 0 %; CH 26.3; Eosinophils % (A) 0 %; HCT 35.1 % (39.0-53.0); HDW 2.77; HGB 11.1 gm/dL (13.0-17.5); Hypochromasia Marked; Luc # (Auto) 0.25; Luc % (Auto) 2; Lymphocytes # (A) 2.2 k/uL (1.0-4.8); Lymphocytes % (A) 18 %; MCH 27.9 pg (25.0-35.0); MCHC 31.7 g/dL (31.0-37.0); MCV 88.1 fL (80.0-100.0); Mean Platelet Volume 6.9; Monocytes # (A) 0.5 k/uL (0-1.0); Monocytes % (A) 4 %; Neutrophils % (A) 75 %; RBC 3.98 m/uL (4.30-5.90); RDW 14.9 % (11.5-15.5); WBC (Perox) 13.26
[2016-10-04 07:08] LABS: ALT 41 U/L (21-72); AST 29 U/L (17-59); Alkaline Phosphatase 69 U/L (38-126); Anion Gap 11 mmol/L; Blood Urea Nitrogen 30 mg/dL (9-20); Calcium 9.7 mg/dL (8.4-10.2); Carbon Dioxide 32 mmol/L (22-30); Chloride 101 mmol/L (98-107); Glucose 99 mg/dL (74-99); Non-African American GFR(MDRD) >60 (>60 ml/min/1.73 sqM); Sodium 144 mmol/L (137-145); Total Bilirubin 0.5 mg/dL (0.2-1.3); Total Protein 6.8 g/dL (6.3-8.2)
[2016-10-04] MEDS: BUDESONIDE 0.5 MG/2 ML NEBU INHALATION SCH ×2 (08:04→21:14)
[2016-10-04] MEDS: IPRATROPIUM-ALBUTEROL 3 ML NEB INHALATION SCH ×4 (08:04→21:14)
[2016-10-04] MEDS: lamoTRIgine 100 MG TAB PO SCH ×2 (08:38→17:17)
[2016-10-04] MEDS: ASPIRIN 81 MG CHEW PO SCH (08:39)
[2016-10-04] MEDS: FAMOTIDINE 20 MG TAB PO SCH (08:39)
[2016-10-04] MEDS: ISOSORBIDE MONONITRATE ER 30 MG TAB.ER.24H PO SCH (08:39)
[2016-10-04] MEDS: METOPROLOL SUCCINATE (ER) 25 MG TAB.ER.24H PO SCH (08:39)
[2016-10-04] MEDS: guaiFENesin-DM 600/30MG 1 EACH TAB.ER.12H PO SCH ×2 (08:39→17:17)
[2016-10-04] MEDS: CALCIUM CARB-VIT D 500MG-200UN 1 EACH TAB PO SCH (08:39)
[2016-10-04] MEDS: methylPREDNISolone SOD SUCCI 125 MG/2 ML VIAL IV SCH (08:40)
[2016-10-04] MEDS: MULTIVITAMINS, THERA 1 EACH TAB PO SCH (12:07)
--- NOTE | 2016-10-04 13:06 | P.PN ---
Subjective Principal diagnosis: Aspiration pneumonia Patient seen and examined with family at bedside. Family is concerned about patient going home today. They state they feel like he was discharged to last time. The family is asking for a nebulizer and suction at home. Case management has confirmed that the patient is not able to get a suction at home because he does not have a tracheostomy. Objective - Vital Signs Vital signs: Vital Signs Temp 96.4 F L 10/04/16 11:43 Pulse 89 10/04/16 11:43 Resp 20 10/04/16 11:43 BP 149/83 10/04/16 11:43 Pulse Ox 92 L 10/04/16 11:43 Intake & Output 10/03/16 10/04/16 10/04/16 18:59 06:59 18:59 Intake Total 100 118 Output Total 100 325 230 Balance 0 -325 -112 Weight 68.5 kg 68.3 kg Intake: Intake, IV Titration 50 Amount Piperacillin-Tazobactam 3 50 .375 gm In Dextrose/Water 1 50ml.bag @ 12.5 mls/hr IVPB Q8HR ON LICENSE OF [facility] Rx#: [id number] Oral 50 118 Output: Urine 100 325 230 Other: Voiding Method Urinal Urinal Urinal Diaper Diaper Diaper - Exam Gen.: Patient is alert, no acute distress, cognitively delayed Cardiovascular: Regular rate and rhythm, S1/S2 Lungs: Scattered rhonchi Abdomen: Soft nontender nondistended positive bowel sounds Extremities: Trace edema - Labs CBC & Chem 7: 10/04/16 06:09 10/04/16 06:09 Labs: Abnormal Lab Results - Last 24 Hours (Table) 10/04/16 10/04/16 Range/Units 06:09 06:09 WBC 12.0 H (3.8-10.6) k/uL RBC 3.98 L (4.30-5.90) m/uL Hgb 11.1 L (13.0-17.5) gm/dL Hct 35.1 L (39.0-53.0) % Neutrophils # 9.0 H (1.3-7.7) k/uL Carbon Dioxide 32 H (22-30) mmol/L BUN 30 H (9-20) mg/dL Assessment and Plan Plan: Acute hypoxic respiratory failure Aspiration pneumonia Bronchospasm Possible underlying asthma Likely underlying chronic aspiration Hiatal hernia NSTEMI Metabolic encephalopathy Acute exacerbation of CHF, diastolic Severe pulmonary hypertension with an RVSP of 51 mmHg Small right-sided pleural effusion Recent hospitalization for pneumonia Hypertension History of prior pacemaker Cerebral palsy Chronic debility History of seizure disorder Anemia, chronic, stable O2 to maintain saturation greater than or equal to 88% Antibiotics Aspiration precautions Pulmonary hygiene IV steroids Bronchodilators Pulmicort Patient will need a home nebulizer, unable to get home suction. Will try to get vibratory vest for home but this should not be a prohibitive factor in discharging the patient. This arrangement can be done as an outpatient. GI and DVT prophylaxis: Heparin, Pepcid
--- NOTE | 2016-10-04 13:08 | P.PN ---
Subjective Principal diagnosis: Mental Status changes Patient is an 81-year-old male who was recently admitted to [facility] for pneumonia he received a course of IV antibiotic and was discharged home on oral Augmentin he returned 2 days later to the hospital due to an episode of confusion and agitation, in the emergency room patient had slightly elevated troponin level he was admitted to telemetry floor and cardiology consultation was requested. Patient has a known history of cerebral palsy, he has very poor, medications skills, he does not relay any complaint of chest pain Objective - Vital Signs Vital signs: Vital Signs Temp 96.4 F L 10/04/16 11:43 Pulse 89 10/04/16 11:43 Resp 20 10/04/16 11:43 BP 149/83 10/04/16 11:43 Pulse Ox 92 L 10/04/16 11:43 Intake & Output 10/03/16 10/04/16 10/04/16 18:59 06:59 18:59 Intake Total 100 118 Output Total 100 325 230 Balance 0 -325 -112 Weight 68.5 kg 68.3 kg Intake: Intake, IV Titration 50 Amount Piperacillin-Tazobactam 3 50 .375 gm In Dextrose/Water 1 50ml.bag @ 12.5 mls/hr IVPB Q8HR [facility] Rx#: [id number] Oral 50 118 Output: Urine 100 325 230 Other: Voiding Method Urinal Urinal Urinal Diaper Diaper Diaper - Exam In general patient is alert and nonverbal in no apparent distress HEENT head normocephalic and atraumatic Neck is supple no JVD no goiter no lymphadenopathy Chest exam reveals a few scattered crackles no wheezing Cardiac exam reveals regular heart sounds no gallops no murmurs Abdomen is soft nontender no organomegaly Extremity exam reveals no edema no cyanosis or clubbing - Labs CBC & Chem 7: 10/04/16 06:09 10/04/16 06:09 Labs: Abnormal Lab Results - Last 24 Hours (Table) 10/04/16 10/04/16 Range/Units 06:09 06:09 WBC 12.0 H (3.8-10.6) k/uL RBC 3.98 L (4.30-5.90) m/uL Hgb 11.1 L (13.0-17.5) gm/dL Hct 35.1 L (39.0-53.0) % Neutrophils # 9.0 H (1.3-7.7) k/uL Carbon Dioxide 32 H (22-30) mmol/L BUN 30 H (9-20) mg/dL Assessment and Plan Plan: #1 aggressive and combative behavior resolved patient is back to his baseline behavior #2 acute congestive heart failure exacerbation likely systolic will check echocardiogram #3 elevated cardiac enzymes including troponin patient was started on IV heparin cardiology consultation was requested, input reviewed, recommending maximizing medical treatment, no intervention was recommended at this time #4 small right sided pleural effusion will monitor #5 pneumonia, continue was current antibiotic, recommendation from Dr. Suresh ED infectious disease reviewed At this time continue with current management Cardiology input reviewed no intervention recommended at this time Possible discharge to home tomorrow
--- NOTE | 2016-10-04 14:40 | P.PN ---
Subjective Principal diagnosis: Non-STEMI This is a pleasant 81-year-old gentleman with history of cerebral palsy, hypertension, prior pacemaker implantation, he follows with Dr. Wade in the office prior seizure disorder, who was recently in the hospital being treated for pneumonia. Patient was noted to the hospital with mental status changes, it appears he may have ruled in for non-Q-wave myocardial infarction. Echocardiogram with Doppler study was performed which revealed an ejection fraction of 55-60%. Overall the patient is feeling much better today, caregivers at bedside. Arrangements being made for possible discharge tomorrow. Hemoglobin today 10.7, potassium 4.5, BUN 25, creatinine 0.6. Patient is on a baby aspirin daily, metoprolol tartrate 25 mg daily, Imdur 30 mg daily, statin, and low-dose DANIEL inhibitor .patient is doing much better overall today. From our perspective he may be able to be discharged once cleared by the primary. Objective - Vital Signs Vital signs: Vital Signs Temp 96.4 F L 10/04/16 11:43 Pulse 89 10/04/16 11:43 Resp 20 10/04/16 11:43 BP 149/83 10/04/16 11:43 Pulse Ox 92 L 10/04/16 11:43 Intake & Output 10/03/16 10/04/16 10/04/16 18:59 06:59 18:59 Intake Total 100 408 Output Total 100 325 230 Balance 0 -325 178 Weight 68.5 kg 68.3 kg Intake: IV 240 0.9 240 Intake, IV Titration 50 50 Amount Piperacillin-Tazobactam 3 50 50 .375 gm In Dextrose/Water 1 50ml.bag @ 12.5 mls/hr IVPB Q8HR [facility] Rx#: [id number] Oral 50 118 Output: Urine 100 325 230 Other: Voiding Method Urinal Urinal Urinal Diaper Diaper Diaper - Exam PHYSICAL EXAMINATION: HEENT: Head is atraumatic, normocephalic. Pupils equal, round. Neck is supple. There is no elevated jugular venous pressure. HEART EXAMINATION: Heart S1, S2 normal. No murmur or gallop heard. CHEST EXAMINATION: Lungs are to auscultation. ABDOMEN: Soft, nontender. Bowel sounds are heard. No organomegaly noted. EXTREMITIES: 1+ peripheral pulses with trace evidence of peripheral edema and no calf tenderness noted. Patient is overall quite contracted, arms and legs bilaterally. NEUROLOGIC patient is awake, alert. Nonverbal. . - Labs CBC & Chem 7: 10/04/16 06:09 10/04/16 06:09 Labs: Abnormal Lab Results - Last 24 Hours (Table) 10/04/16 10/04/16 Range/Units 06:09 06:09 WBC 12.0 H (3.8-10.6) k/uL RBC 3.98 L (4.30-5.90) m/uL Hgb 11.1 L (13.0-17.5) gm/dL Hct 35.1 L (39.0-53.0) % Neutrophils # 9.0 H (1.3-7.7) k/uL Carbon Dioxide 32 H (22-30) mmol/L BUN 30 H (9-20) mg/dL Assessment and Plan Plan: Assessment and plan #1 mental status changes with possible seizure activity. CT of the brain did not reveal any acute findings. Patient has history of cerebral palsy is also mildly developmentally delayed. Nonverbal. #2 recent hospitalization with pneumonia, low-grade temp on arrival here. Currently on Rocephin and Zithromax. #3 hypertension #4 mild congestive cardiac failure, diastolic acute on chronic. #5 history of prior pacemaker implantation #6 possible non-Q-wave myocardial infarction, we'll maximize the patient's medical therapy. Plan from a cardiology's perspective, we'll continue the patient on his current medications. He may be able to be discharged home from our perspective. We will follow him now on an as-needed basis only, please don't hesitate to call with any questions. We will make him a follow-up appointment with Dr. Wade in the office post discharge. DNP note has been reviewed, I agree with a documented findings and plan of care. Patient was seen and examined.
--- NOTE | 2016-10-04 15:15 | PN ---
DATE OF SERVICE: 10/04/2016 Reason for followup is possible aspiration pneumonia. INTERVAL HISTORY: The patient is afebrile. He seemed to be breathing comfortably, in no distress. Most of the history has been documented by the R.N. Patient is not able to report a reliable history. On examination, blood pressure is 149/83 with a pulse of 89, temperature 96.4. He is 92% on room air. General description is an elderly male, lying in bed in no distress. RESPIRATORY SYSTEM: Unlabored breathing. Some decreased breath sounds at the base. No wheeze. HEART: S1, S2, regular rate and rhythm. ABDOMEN: Soft, no tenderness. LABS: Hemoglobin is 11.1, white count of 12.0 with a BUN of 30, creatinine 0.69. Blood culture has been negative. Sputum was not collected. DIAGNOSTIC IMPRESSION AND PLAN: Patient admitted to the hospital with hiatal hernia. He is currently on Zosyn and Levaquin. Plan to finish therapy with p.o. Avelox 400 daily to finish the course of therapy with strict aspiration precautions. Continue supportive care.
[2016-10-04] MEDS: FINASTERIDE 5 MG TAB PO SCH (17:17)
[2016-10-04] MEDS ORDERED: LEVOFLOXACIN 500 MG TAB PO SCH (20:00)
[2016-10-05] MEDS: DOCUSATE 100 MG CAP PO SCH (00:15)
[2016-10-05] MEDS: PIPERACILLIN-TAZOBACTAM 3.375 GM in DEXTROSE/WATER 1 50ML.BAG IVPB SCH ×2 (00:15→09:03)
[2016-10-05] MEDS: methylPREDNISolone SOD SUCCI 125 MG/2 ML VIAL IV SCH ×2 (00:16→09:06)
[2016-10-05] MEDS: guaiFENesin-DM 600/30MG 1 EACH TAB.ER.12H PO SCH ×2 (00:17→09:07)
[2016-10-05] MEDS: HEPARIN SODIUM,PORCINE 5,000 UNIT/ML 1 ML VIAL SQ SCH ×2 (00:17→09:07)
[2016-10-05] MEDS: FAMOTIDINE 20 MG TAB PO SCH ×2 (00:17→09:07)
[2016-10-05] MEDS: ACETAMINOPHEN TAB 500 MG TAB PO PRN ×2 (00:21→05:20)
[2016-10-05 06:55] LABS: Basophils % (A) 0 %; CH 26.9; CHCM 29.4; Eosinophils % (A) 0 %; HCT 34.9 % (39.0-53.0); HDW 2.59; HGB 10.5 gm/dL (13.0-17.5); Hypochromasia Marked; Luc # (Auto) 0.19; Luc % (Auto) 2; Lymphocytes # (A) 1.9 k/uL (1.0-4.8); Lymphocytes % (A) 19 %; MCH 27.5 pg (25.0-35.0); MCHC 29.9 g/dL (31.0-37.0); MCV 91.7 fL (80.0-100.0); Mean Platelet Volume 7.3; Monocytes # (A) 0.5 k/uL (0-1.0); Monocytes % (A) 5 %; Neutrophils # (A) 7.5 k/uL (1.3-7.7); Neutrophils % (A) 74 %; RBC 3.81 m/uL (4.30-5.90); RDW 14.9 % (11.5-15.5); WBC 10.1 k/uL (3.8-10.6); WBC (Perox) 10.28
[2016-10-05] MEDS: IPRATROPIUM-ALBUTEROL 3 ML NEB INHALATION SCH ×2 (09:03→13:46)
[2016-10-05] MEDS: BUDESONIDE 0.5 MG/2 ML NEBU INHALATION SCH (09:03)
[2016-10-05] MEDS: CALCIUM CARB-VIT D 500MG-200UN 1 EACH TAB PO SCH (09:06)
[2016-10-05] MEDS: lamoTRIgine 100 MG TAB PO SCH (09:06)
[2016-10-05] MEDS: METOPROLOL SUCCINATE (ER) 25 MG TAB.ER.24H PO SCH (09:06)
[2016-10-05] MEDS: ISOSORBIDE MONONITRATE ER 30 MG TAB.ER.24H PO SCH (09:07)
[2016-10-05] MEDS: ASPIRIN 81 MG CHEW PO SCH (09:07)
[2016-10-05] MEDS: MULTIVITAMINS, THERA 1 EACH TAB PO SCH (11:40)
[2016-10-05 11:46] VITALS: BP 137/83; RESP 16; TEMP 96.3
[2016-10-05 13:59] VITALS: PULSE 88
--- NOTE | 2016-10-05 14:20 | P.DS ---
Providers Date of admission: 10/01/16 08:19 Attending physician: Maria Luisa Barth Consults: 10/02/16 15:38 Consult Physician Routine Consulting Provider: Nico Otto Consult Reason/Comments: dyspnea Do you want consulting provider notified?: Yes 10/02/16 17:15 Consult Physician Routine Consulting Provider: Niyah Morales Consult Reason/Comments: recurrent pneumonia Do you want consulting provider notified?: Yes [facility] [place] [facility] Course: Patient is being seen by me today for the first time. I'm covering for Dr. Barth. Patient is been in the hospital for approximately 5 days. He is cleared by different consultants for discharge home. This is a pleasant 81-year-old gentleman with history of cerebral palsy, hypertension, prior pacemaker implantation, Patient was admitted to the hospital with mental status changes, shortness of breath and mildly elevated troponin level. He was diagnosed with underlying pneumonia. ACS was ruled out by cardiology. Patient was seen by infectious disease, pulmonology, and cardiology he was cleared for discharge. Below is a list of his medical problems addressed during this hospitalization. Acute hypoxic respiratory failure Aspiration pneumonia Bronchospasm Possible underlying asthma Likely underlying chronic aspiration Hiatal hernia NSTEMI Metabolic encephalopathy Acute exacerbation of CHF, diastolic Severe pulmonary hypertension with an RVSP of 51 mmHg Small right-sided pleural effusion Recent hospitalization for pneumonia Hypertension History of prior pacemaker Cerebral palsy Chronic debility History of seizure disorder Anemia, chronic, stable Patient Condition at Discharge: Poor Plan - Discharge Summary New Discharge Prescriptions: Aspirin 81 mg PO DAILY #30 chew Budesonide [Pulmicort] 0.5 mg INHALATION RT-BID #30 nebu Ipratropium-Albuterol Nebulize [Duoneb 0.5 mg-3 mg/3 ml Soln] 3 ml INHALATION RT -QID #60 ampul.neb Isosorbide Mononitrate ER [Imdur] 30 mg PO DAILY #30 tab.er.24h Moxifloxacin HCl [Avelox] 400 mg PO DAILY #5 tablet predniSONE 40 mg PO DAILY #10 tab Discharge Medication List Docusate Sodium [Dulcolax Stool Softener] 100 mg PO HS 09/10/14 [History] Dutasteride [Avodart] 0.5 mg PO W/SUPPER 09/10/14 [History] Furosemide [Lasix] 20 mg PO DAILY 09/10/14 [History] Metoprolol Succinate [Toprol XL] 25 mg PO DAILY 09/10/14 [History] Multivitamins, Thera [Multivitamin (formulary)] 1 tab PO DAILY 09/10/14 [History ] lamoTRIgine [LaMICtal] 300 mg PO QAM 09/10/14 [History] lamoTRIgine [LaMICtal] 350 mg PO W/SUPPER 09/10/14 [History] Calcium Carbonate [Calcium] 600 mg PO DAILY 09/24/16 [History] Mucous Relief Dm 400 mg PO TID 09/24/16 [History] Polyethylene Glycol 3350 [Miralax] 17 gm PO DAILY PRN 09/24/16 [History] Ranitidine HCl [Zantac] 150 mg PO BID 09/24/16 [History] Aspirin 81 mg PO DAILY #30 chew 10/05/16 [Rx] Budesonide [Pulmicort] 0.5 mg INHALATION RT-BID #30 nebu 10/05/16 [Rx] Ipratropium-Albuterol Nebulize [Duoneb 0.5 mg-3 mg/3 ml Soln] 3 ml INHALATION RT -QID #60 ampul.neb 10/05/16 [Rx] Isosorbide Mononitrate ER [Imdur] 30 mg PO DAILY #30 tab.er.24h 10/05/16 [Rx] Moxifloxacin HCl [Avelox] 400 mg PO DAILY #5 tablet 10/05/16 [Rx] predniSONE 40 mg PO DAILY #10 tab 10/05/16 [Rx] Follow up Appointment(s)/Referral(s): Joao Hollis MD [STAFF PHYSICIAN] - 1 Week [facility], [NON-STAFF] - Juliet Escoto MD [Primary Care Provider] - 1-2 days Discharge Disposition: HOME WITH HOME HEALTH SERVICES
--- NOTE | 2016-10-05 15:56 | PN ---
DATE OF SERVICE: 10/05/2016 REASON FOR FOLLOWUP: Aspiration pneumonia. INTERVAL HISTORY: The patient is afebrile; has been breathing comfortably. No nausea or vomiting has been noticed or respiratory distress and no diarrhea. On examination, blood pressure is 137/83 with a pulse of 88, temperature 96.3. He is 92% on room air. General description is an elderly male up in the bed in no distress. RESPIRATORY SYSTEM: Unlabored breathing. Clear to auscultation anteriorly. HEART: S1, S2. Regular rate and rhythm. ABDOMEN: Soft. No tenderness. LABS: Hemoglobin is 10.5, white count normalized to 10.1. Blood culture has been negative. Sputum not collected. DIAGNOSTIC IMPRESSION AND PLAN: Patient with an episode of aspiration pneumonia. Patient seems to have shown overall clinical improvement. Plan to finish therapy with oral Avelox. Family present at the bedside. Their questions and concerns were answered.
--- NOTE | 2016-10-09 08:43 | CDI ---
In responding to this query, please exercise your independent professional judgment. The [facility] Coding Staff and Clinical Documentation Specialists appreciate your assistance in clarifying documentation, maintaining compliance with coding guidelines, accurately documenting patients condition and capturing severity of illness. The fact that a question is asked does not imply that any particular answer is desired or expected. Communication forms are a method of clarifying documentation and are not made part of the Legal Health Record. Thank you in advance for your clarification. Last Revision, May 2015 Date: 10/09/2016 8:27:00 AM From: Roxie Pollard Phone: Admit Date: 10/01/2016 8:19:00 AM Patient Name: Nael Abrams Visit Number: [id number] Discharge Date: Dr. Maria Luisa Barth Conflicting documentation has been found in the medical record. On admission, patient had elevated troponin. Documentation in progress note dated 10/02 states that non-Q wave myocardial infarction may be ruled in. Discharge summary states that ACS was ruled out my cardiology. NSTEMI is listed as a discharge diagnosis. In your opinion what is the most clinically appropriate diagnosis for this patient? DC ruled in DC ruled out OTHER explanation of clinical findings Unable to determine (no explanation for clinical findings) Please document in your progress notes and discharge summary in order to capture severity of illness and risk of mortality. Include clinical findings that support your diagnosis. FYI: Press F11 to launch patient chart. Place X here if this finding has no clinical significance, is not applicable or if you are not able to provide any additional documentation. ALYSSA
--- NOTE | 2016-10-09 12:29 | CDI ---
[facility] [address] [place] [address] Documentation Clarification Form Date: 10/09/2016 8:27:00 AM From: Roxie Pollard Phone: Admit Date: 10/01/2016 8:19:00 AM Patient Name: Nael Abrams Visit Number: [id number] Discharge Date: Dr. Eddi Sun Date: 10/09/2016 8:27:00 AM From: Roxie Pollard Phone: Admit Date: 10/01/2016 8:19:00 AM Patient Name: Nael Abrams Visit Number: [id number] Discharge Date: Dr. Eddi Sun Conflicting documentation has been found in the medical record. On admission, patient had elevated troponin. Documentation in progress note dated 10/02 states that non-Q wave myocardial infarction may be ruled in. Discharge summary states that ACS was ruled out my cardiology. NSTEMI is listed as a discharge diagnosis. In your opinion what is the most clinically appropriate diagnosis for this patient? VA ruled in VA ruled out OTHER explanation of clinical findings Unable to determine (no explanation for clinical findings) Please document in your progress notes and discharge summary in order to capture severity of VA ruled out. d/c summary updated MTDD
== END 2016-10-05 15:38 | disposition home health service (06) | DRG 291 ==
LOC: EC 05:09 → 6SEL 08:19
PROVIDERS: ADMIT Internal Medicine; ATTEND Internal Medicine
DX: I50.43 Acute on chronic combined systolic (congestive) and diastolic (congestive) heart failure (principal); J69.0 Pneumonitis due to inhalation of food and vomit; J96.01 Acute respiratory failure with hypoxia; G93.41 Metabolic encephalopathy; D64.9 Anemia, unspecified; E87.6 Hypokalemia; F43.10 Post-traumatic stress disorder, unspecified; G40.909 Epilepsy, unspecified, not intractable, without status epilepticus; G80.9 Cerebral palsy, unspecified; H54.41 Blindness, right eye, normal vision left eye; I11.0 Hypertensive heart disease with heart failure; I27.2 Other secondary pulmonary hypertension; J45.909 Unspecified asthma, uncomplicated; K44.9 Diaphragmatic hernia without obstruction or gangrene; M40.209 Unspecified kyphosis, site unspecified; N40.0 Benign prostatic hyperplasia without lower urinary tract symptoms; Z87.01 Personal history of pneumonia (recurrent); Z88.8 Allergy status to other drugs, medicaments and biological substances; Z95.0 Presence of cardiac pacemaker
CPT/HCPCS: 36415; 70450; 71010; 71020; 80053; 80061; 80306; 81001; 82272; 82550; 82553; 83605; 83880; 84132; 84484; 85025; 85610; 85730; 87040; 87086; 93005; 93306; 94640; 96365; 96375; 96376; 99285

== ENCOUNTER → 2017-02-25 | Outpatient (CLI) | payer MEDICARE, OTHER ==
--- NOTE | 2017-02-25 13:30 | XR ---
EXAMINATION TYPE: XR femur LT DATE OF EXAM: 02/25/2017 COMPARISON: NONE HISTORY: Pain TECHNIQUE: 5 views of the left femur are submitted FINDINGS: Diffuse atherosclerotic changes are noted. Severe narrowing of the knee joint and patellofe moral joint. Concentric narrowing of the hip joint. Diffuse osteopenia noted. IMPRESSION: 1. Severe arthritis of the left knee with complete loss of joint space. 2. Mild to moderate concentric narrowing of the left hip joint with no erosive changes.
--- NOTE | 2017-02-25 13:31 | XR ---
EXAMINATION TYPE: XR Hip Complete LT DATE OF EXAM: 02/25/2017 COMPARISON: NONE HISTORY: Pain TECHNIQUE: 2 views submitted FINDINGS: There is no evidence of erosive change or acute fracture. Diffuse osteopenia. Moderate concentric narrowing the joint space. Vascular calcifications noted. IMPRESSION: 1. No evidence of acute fracture or dislocation. 2. Left hip joint arthropathy.
--- NOTE | 2017-02-25 13:32 | XR ---
EXAMINATION TYPE: XR knee complete RT DATE OF EXAM: 02/25/2017 COMPARISON: NONE HISTORY: Pain TECHNIQUE: 3 views are submitted. FINDINGS: Complete loss of joint space with remodeling of the tibia laterally. There is subluxation or partial dislocation of the femur medially relative to the tibia. Marked sclerosis involving air jugular porti on of the lateral tibia and femur noted. Vascular calcification seen. IMPRESSION: 1. Severe arthropathy as discussed above with subluxation or partial dislocation of the femur medial relative to the tibia. Correlate clinically.
== END | disposition home or self-care (01) ==
LOC: RADXRMAIN 11:44
PROVIDERS: ATTEND Family Medicine
DX: M17.12 Unilateral primary osteoarthritis, left knee (principal); M25.862 Other specified joint disorders, left knee; M12.851 Other specific arthropathies, not elsewhere classified, right hip; M25.561 Pain in right knee
CPT/HCPCS: 73502

== ENCOUNTER 2017-07-14 10:09 | Emergency (ER) | payer MEDICARE, OTHER ==
[2017-07-14] MEDS ORDERED: SODIUM CHLORIDE 0.9% 1,000 ML IV STA ×2 (10:16)
--- NOTE | 2017-07-14 10:20 | ED ---
General Adult HPI - General Stated complaint: Dehydration/Abnormal Labs Time Seen by Provider: 07/14/17 10:09 Source: EMS, RN notes reviewed, old records reviewed Mode of arrival: EMS - History of Present Illness Initial comments: This 82-year-old male with a history of stroke palsy and other medical problems who was brought in by EMS for evaluation for hypernatremia. Apparently he was found have this on labs or done in a [place] [facility] and attempt was made to start an IV and give him IV fluids here he apparently did not cooperate so he was sent here for evaluation. No reports of fall fevers chills nausea vomiting sweats or other symptoms. - Related Data Home Medications Medication Instructions Recorded Confirmed Metoprolol Succinate [Toprol XL] 25 mg PO DAILY 09/10/14 07/14/17 lamoTRIgine [LaMICtal] 300 mg PO QAM 09/10/14 07/14/17 lamoTRIgine [LaMICtal] 350 mg PO W/SUPPER 09/10/14 07/14/17 Polyethylene Glycol 3350 [Miralax] 17 gm PO DAILY 09/24/16 07/14/17 Ranitidine HCl [Zantac] 150 mg PO BID 09/24/16 07/14/17 Acetaminophen [Tylenol Arthritis] 650 mg PO QID 07/14/17 07/14/17 Budesonide [Pulmicort] 0.5 mg INHALATION RT-BID PRN 07/14/17 07/14/17 Calcium Carbonate/Vitamin D3 1 tab PO DAILY 07/14/17 07/14/17 [Calcium 500-Vit D3 200 Tablet] Dextrose Solution 5% 1,000 ml IV ONCE 07/14/17 07/14/17 Dimethicone/Zinc Oxide [Inzo Zinc 1 applic TOPICAL BID 07/14/17 07/14/17 Oxide Barrier Cream] Docusate [Colace] 100 mg PO DAILY 07/14/17 07/14/17 Finasteride [Proscar] 5 mg PO DAILY@2100 07/14/17 07/14/17 Hydrocortisone [Hydrocortisone 1 applic TOPICAL TID PRN 07/14/17 07/14/17 0.05%] Ipratropium-Albuterol Nebulize 3 ml INHALATION RT-Q6H PRN 07/14/17 07/14/17 [Duoneb 0.5 mg-3 mg/3 ml Soln] Lactose-Reduced Food [Ensure Plus] 1 can PO TID 07/14/17 07/14/17 Loratadine [Claritin] 10 mg PO DAILY 07/14/17 07/14/17 Melatonin 5 mg PO HS 07/14/17 07/14/17 Multivitamin,Therapeutic [Thera] 1 tab PO DAILY 07/14/17 07/14/17 traZODone HCL 50 mg PO HS 07/14/17 07/14/17 Previous Rx's Medication Instructions Recorded Aspirin 81 mg PO DAILY #30 chew 10/05/16 Allergies Allergy/AdvReac Type Severity Reaction Status Date / Time diphenhydramine HCl Allergy hyper and Verified 07/14/17 10:46 [From Benadryl] aggitated Influenza Virus Vaccines Allergy Confusion Verified 07/14/17 10:46 Penicillins AdvReac Unknown Verified 07/14/17 10:46 Review of Systems ROS Statement: Those systems with pertinent positive or pertinent negative responses have been documented in the HPI. ROS Other: All systems not noted in ROS Statement are negative. Past Medical History Past Medical History: Eye Disorder, Hypertension, Osteoarthritis (OA), Prostate Disorder, Seizure Disorder, Skin Disorder Additional Past Medical History / Comment(s): Recently admitted 09/25/16 to [facility] with pneumonia/small R pleural effusion/bronchospasms/hyponatremia. 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 History of Any Multi-Drug Resistant Organisms: MRSA Date of last positivie culture/infection: 03/21/17 MDRO Source:: EYE Past Surgical History: Hernia Repair, Pacemaker Additional Past Surgical History / Comment(s): L cataract, oral surgery, inguinal hernia repair. Additional Past Anesthesia/Blood Transfusion Reaction / Comment(s): limted family history. Pt was slow to clear anesthesia after pacemaker insertion. Type of Cardiac Device: Permanent Pacemaker Device Placement Date:: 2003 inserted and 2012 battery changed Additional Psychological History / Comment(s): Pt was institutionalized for years-age [age]. He was in a straight jacket at times. He came to live with Thalia Pascual and her spouse after that. He has cerebral palsey and is mentally handicapped. He has the mentation of a 3 yrs old. He can normally stand/pivot with assist and sit in wheelchair. He feeds himself fingerfood. Food must be cut small. He will try to use utensils but food falls off. He is aware when he needs to urinate or move his bowels. He gets aggitated with new experiences. He recently started with [facility] care. - Past Family History Father History Unknown: Yes Mother Family Medical History: Cancer Additional Family Medical History / Comment(s): ?lung cancer. General Exam - General Exam Comments Initial Comments: This is a 82-year-old male with some contractures a right facial droop noted. He does cooperate with requests. Limitations: altered mental status, physical limitation General appearance: alert, in no apparent distress Head exam: Present: atraumatic, normocephalic, normal inspection Pupils: Present: other (Right facial asymmetry) ENT exam: Present: mucous membranes dry Neck exam: Present: normal inspection. Absent: tenderness, meningismus, lymphadenopathy Respiratory exam: Present: normal lung sounds bilaterally. Absent: respiratory distress, wheezes, rales, rhonchi, stridor Cardiovascular Exam: Present: regular rate, normal rhythm, normal heart sounds. Absent: systolic murmur, diastolic murmur, rubs, gallop, clicks GI/Abdominal exam: Present: soft, normal bowel sounds. Absent: distended, tenderness, guarding, rebound, rigid Extremities exam: Present: normal capillary refill. Absent: tenderness Back exam: Present: normal inspection Neurological exam: Present: alert, other (Right facial asymmetry is noted) Psychiatric exam: Present: normal mood Skin exam: Present: warm, dry, intact, normal color. Absent: rash Course Vital Signs 07/14/17 07/14/17 07/14/17 10:13 11:57 12:45 Temperature 97.6 F 97.6 F Pulse Rate 75 88 75 Respiratory 20 18 16 Rate Blood Pressure 140/70 141/85 118/56 O2 Sat by Pulse 97 93 L 98 Oximetry EKG Findings - EKG Results: EKG: interpreted by ERMD (Atrial sensed ventricular paced rhythm of 75. Interval 174 QRS 176 QT since QTC of 476/531 no acute changes) Medical Decision Making - Medical Decision Making The patient is in satisfactory condition for discharge back to the [place] [facility] he has been rehydrated. - Lab Data Result diagrams: 07/14/17 10:55 07/14/17 10:55 Lab Results 07/14/17 07/14/17 Range/Units 10:55 10:55 WBC 6.7 (3.8-10.6) k/uL RBC 4.35 (4.30-5.90) m/uL Hgb 12.0 L (13.0-17.5) gm/dL Hct 40.9 (39.0-53.0) % MCV 93.9 (80.0-100.0) fL MCH 27.6 (25.0-35.0) pg MCHC 29.4 L (31.0-37.0) g/dL RDW 18.1 H (11.5-15.5) % Plt Count 193 (150-450) k/uL Neutrophils % 62 % Lymphocytes % 25 % Monocytes % 6 % Eosinophils % 3 % Basophils % 1 % Neutrophils # 4.2 (1.3-7.7) k/uL Lymphocytes # 1.7 (1.0-4.8) k/uL Monocytes # 0.4 (0-1.0) k/uL Eosinophils # 0.2 (0-0.7) k/uL Basophils # 0.1 (0-0.2) k/uL Hypochromasia Marked Anisocytosis Slight Macrocytosis Slight Sodium 153 H (137-145) mmol/L Potassium 3.7 (3.5-5.1) mmol/L Chloride 109 H (98-107) mmol/L Carbon Dioxide 35 H (22-30) mmol/L Anion Gap 9 mmol/L BUN 33 H (9-20) mg/dL Creatinine 0.77 (0.66-1.25) mg/dL Est GFR (MDRD) Af Amer >60 (>60 ml/min/1.73 sqM) Est GFR (MDRD) Non-Af >60 (>60 ml/min/1.73 sqM) Glucose 104 H (74-99) mg/dL Calcium 10.0 (8.4-10.2) mg/dL Total Bilirubin 0.3 (0.2-1.3) mg/dL AST 35 (17-59) U/L ALT 38 (21-72) U/L Alkaline Phosphatase 95 (38-126) U/L Total Protein 7.1 (6.3-8.2) g/dL Albumin 4.0 (3.5-5.0) g/dL Disposition Clinical Impression: Dehydration, Hypernatremia Disposition: HOME SELF-CARE Condition: Good Instructions: Dehydration (ED), Hypernatremia (ED) Referrals: Maria M Hurt MD [Primary Care Provider] - 1-2 days
[2017-07-14] MEDS ORDERED: SODIUM CHLORIDE 0.9% 1,000 ML IV ONE (11:01)
[2017-07-14 11:14] LABS: Anisocytosis Slight; Basophils # (A) 0.1 k/uL (0-0.2); Basophils % (A) 1 %; Eosinophils # (A) 0.2 k/uL (0-0.7); Eosinophils % (A) 3 %; HCT 40.9 % (39.0-53.0); Hypochromasia Marked; Lymphocytes # (A) 1.7 k/uL (1.0-4.8); Lymphocytes % (A) 25 %; MCH 27.6 pg (25.0-35.0); MCHC 29.4 g/dL (31.0-37.0); MCV 93.9 fL (80.0-100.0); Macrocytosis Slight; Mean Platelet Volume 10.3; Monocytes # (A) 0.4 k/uL (0-1.0); Monocytes % (A) 6 %; Neutrophils # (A) 4.2 k/uL (1.3-7.7); Neutrophils % (A) 62 %; Platelet Count 193 k/uL (150-450); RBC 4.35 m/uL (4.30-5.90); RDW 18.1 % (11.5-15.5); WBC 6.7 k/uL (3.8-10.6)
[2017-07-14 11:30] LABS: ALT 38 U/L (21-72); AST 35 U/L (17-59); Alkaline Phosphatase 95 U/L (38-126); Anion Gap 9 mmol/L; Blood Urea Nitrogen 33 mg/dL (9-20); Carbon Dioxide 35 mmol/L (22-30); Chloride 109 mmol/L (98-107); Glucose 104 mg/dL (74-99); Potassium 3.7 mmol/L (3.5-5.1); Sodium 153 mmol/L (137-145); Total Bilirubin 0.3 mg/dL (0.2-1.3); Total Protein 7.1 g/dL (6.3-8.2)
[2017-07-14] MEDS ORDERED: SODIUM CHLORIDE 0.9% 500 ML IV STA (12:29)
[2017-07-14 14:59] VITALS: BP 111/56; PULSE 64; RESP 18; TEMP 97.7
== END 2017-07-14 14:59 | disposition home or self-care (01) ==
LOC: EC 10:09
DX: E87.0 Hyperosmolality and hypernatremia (principal); E86.0 Dehydration; Z86.14 Personal history of Methicillin resistant Staphylococcus aureus infection; R41.82 Altered mental status, unspecified; R29.810 Facial weakness; I10 Essential (primary) hypertension; G40.909 Epilepsy, unspecified, not intractable, without status epilepticus; H54.61 Unqualified visual loss, right eye, normal vision left eye; N40.0 Benign prostatic hyperplasia without lower urinary tract symptoms; F41.9 Anxiety disorder, unspecified; Z79.899 Other long term (current) drug therapy; Z88.0 Allergy status to penicillin; Z88.7 Allergy status to serum and vaccine; Z88.8 Allergy status to other drugs, medicaments and biological substances; Z99.3 Dependence on wheelchair
CPT/HCPCS: 36415; 80053; 85025; 93005; 96360; 96361; 99285

== ENCOUNTER 2017-07-23 00:24 | Emergency (ER) | payer MEDICARE, OTHER ==
--- NOTE | 2017-07-23 02:21 | CT ---
EXAMINATION TYPE: CT brain beth rosas con DATE OF EXAM: 07/23/2017 COMPARISON: Head CT scan 10/01/2016 HISTORY: FALL/ EVALUATE FOR TRAUMA CT DLP: 1617.70 mGycm Automated exposure control for dose reduction was used. TECHNIQUE: CT scan of the head and cervical spine are performed without contrast. FINDINGS: There is cerebral cortical atrophy. There is no mass effect nor midline shift. There is n o sign of intracranial hemorrhage. There is some mucosal thickening in the ethmoid and sphenoid sinus . The calvarium is intact. There is some frontal scalp soft tissue swelling. There is degenerative disc space narrowing throughout the cervical spine. There is a few millimeter a nterior subluxation of C7 in relation to T1. There is similar change at C6-7. I see no compression fr acture. The facet joints are intact. There is multilevel mild hypertrophic facet arthropathy. Skull b ase is intact. IMPRESSION: Cerebral atrophy. No acute intracranial abnormality. Sinusitis. No change. Spondylotic changes in the cervical spine. No fracture seen.
--- NOTE | 2017-07-23 03:30 | ED ---
Fall HPI - General Chief Complaint: Fall Stated Complaint: Fall Time Seen by Provider: 07/23/17 00:56 Source: EMS Mode of arrival: EMS Limitations: physical limitation (history of developmental delay) - History of Present Illness Initial Comments: this patient is an 82-year-old man brought from his long-term care facility to be evaluated after a fall. The patient was in a wheelchair and reportedly pitched forward striking his brow against the ground. There was no loss of consciousness reported. The patient is not able to physically describes symptoms, but does appear to state no one asked if he is having pain. MD Complaint: fall Onset/Timin -: hour(s) Fall From: wheelchair When Fall Occurred: 1 hour [facility] DRIER Fall Witnessed: yes, by living facility staff Place Fall Occurred: senior living/SNF Loss of Consciousness: none Prolonged Down Time?: no Symptoms Prior to Fall: none Location: face - Related Data Home Medications Medication Instructions Recorded Confirmed Metoprolol Succinate [Toprol XL] 25 mg PO DAILY 09/10/14 07/23/17 lamoTRIgine [LaMICtal] 300 mg PO QAM 09/10/14 07/23/17 lamoTRIgine [LaMICtal] 350 mg PO W/SUPPER 09/10/14 07/23/17 Polyethylene Glycol 3350 [Miralax] 17 gm PO DAILY 09/24/16 07/23/17 Ranitidine HCl [Zantac] 150 mg PO BID 09/24/16 07/23/17 Acetaminophen [Tylenol Arthritis] 650 mg PO QID 07/14/17 07/23/17 Budesonide [Pulmicort] 0.5 mg INHALATION RT-BID PRN 07/14/17 07/23/17 Calcium Carbonate/Vitamin D3 1 tab PO DAILY 07/14/17 07/23/17 [Calcium 500-Vit D3 200 Tablet] Dextrose Solution 5% 1,000 ml IV ONCE 07/14/17 07/23/17 Dimethicone/Zinc Oxide [Inzo Zinc 1 applic TOPICAL BID 07/14/17 07/23/17 Oxide Barrier Cream] Docusate [Colace] 100 mg PO DAILY 07/14/17 07/23/17 Finasteride [Proscar] 5 mg PO DAILY@2100 07/14/17 07/23/17 Hydrocortisone [Hydrocortisone 1 applic TOPICAL TID PRN 07/14/17 07/23/17 0.05%] Ipratropium-Albuterol Nebulize 3 ml INHALATION RT-Q6H PRN 07/14/17 07/23/17 [Duoneb 0.5 mg-3 mg/3 ml Soln] Lactose-Reduced Food [Ensure Plus] 1 can PO TID 07/14/17 07/23/17 Loratadine [Claritin] 10 mg PO DAILY 07/14/17 07/23/17 Melatonin 5 mg PO HS 07/14/17 07/23/17 Multivitamin,Therapeutic [Thera] 1 tab PO DAILY 07/14/17 07/23/17 traZODone HCL 50 mg PO HS 07/14/17 07/23/17 Previous Rx's Medication Instructions Recorded Aspirin 81 mg PO DAILY #30 chew 10/05/16 Allergies Allergy/AdvReac Type Severity Reaction Status Date / Time diphenhydramine HCl Allergy hyper and Verified 07/23/17 00:39 [From Benadryl] aggitated Influenza Virus Vaccines Allergy Confusion Verified 07/23/17 00:39 Penicillins AdvReac Unknown Verified 07/23/17 00:39 Review of Systems ROS Statement: Those systems with pertinent positive or pertinent negative responses have been documented in the HPI. ROS Other: All systems not noted in ROS Statement are negative. Limitations: ROS unobtainable due to patients medical condition Past Medical History Past Medical History: Eye Disorder, Hypertension, Osteoarthritis (OA), Prostate Disorder, Seizure Disorder, Skin Disorder Additional Past Medical History / Comment(s): Recently admitted 09/25/16 to [facility] with pneumonia/small R pleural effusion/bronchospasms/hyponatremia. 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 History of Any Multi-Drug Resistant Organisms: MRSA Date of last positivie culture/infection: 03/21/17 MDRO Source:: EYE Past Surgical History: Hernia Repair, Pacemaker Additional Past Surgical History / Comment(s): L cataract, oral surgery, inguinal hernia repair. Additional Past Anesthesia/Blood Transfusion Reaction / Comment(s): limted family history. Pt was slow to clear anesthesia after pacemaker insertion. Type of Cardiac Device: Permanent Pacemaker Device Placement Date:: 2003 inserted and 2012 battery changed Past Psychological History: Anxiety, PTSD Smoking Status: Never smoker Past Alcohol Use History: None Reported Past Drug Use History: None Reported - Past Family History Father History Unknown: Yes Mother Family Medical History: Cancer Additional Family Medical History / Comment(s): ?lung cancer. General Exam Limitations: physical limitation General appearance: alert, in no apparent distress Head exam: Present: other (laceration to the left brow.) Eye exam: Present: PERRL, EOMI, periorbital swelling. Absent: periorbital tenderness ENT exam: Present: mucous membranes dry Neck exam: Present: normal inspection, full ROM. Absent: tenderness Respiratory exam: Present: normal lung sounds bilaterally. Absent: respiratory distress, wheezes, rales, rhonchi, stridor, chest wall tenderness Cardiovascular Exam: Present: regular rate, normal rhythm, normal heart sounds. Absent: systolic murmur, diastolic murmur, rubs, gallop GI/Abdominal exam: Present: soft. Absent: distended, tenderness, guarding, rebound, mass Extremities exam: Present: other (there are contractures). Absent: tenderness Back exam: Present: normal inspection. Absent: paraspinal tenderness, vertebral tenderness Neurological exam: Present: alert Skin exam: Present: warm, dry, normal color, other (there is a stellate laceration of left brow total length approximately 4 cm. No contamination. No injury to vascular structures.). Absent: intact, rash Course Vital Signs 07/23/17 07/23/17 07/23/17 00:36 03:54 05:06 Temperature 97.4 F L 97.9 F Pulse Rate 85 94 73 Respiratory 20 20 18 Rate Blood Pressure 144/71 136/77 135/79 O2 Sat by Pulse 96 97 94 L Oximetry Procedures - Laceration Laceration #1 Consent Obtained: emergent situation Time Out Performed: Yes Indication: laceration Site: face Description: stellate Depth: simple, single layer Anesthetic Used: lidocaine 1% Anesthesia Technique: local infiltration Amount (mls): 2 Size of Sutures: 6-0 Number of Sutures: 5 Technique: simple, interrupted Patient Tolerated Procedure: well, no complications Additional Comments: total laceration length is 4 cm, to the brow. Disposition Clinical Impression: Fall, Head injury, Laceration Disposition: HOME SELF-CARE Condition: Fair Instructions: Laceration (ED), Fall Prevention for Older Adults (ED), Head Injury (ED) Referrals: Maria M Hurt MD [Primary Care Provider] - 1-2 days
[2017-07-23 05:09] VITALS: BP 135/79; PULSE 73; RESP 18; TEMP 97.9
== END 2017-07-23 05:45 | disposition home or self-care (01) ==
LOC: EC 00:24
DX: S01.112A Laceration without foreign body of left eyelid and periocular area, initial encounter (principal); I10 Essential (primary) hypertension; M19.90 Unspecified osteoarthritis, unspecified site; Z95.0 Presence of cardiac pacemaker; F41.9 Anxiety disorder, unspecified; F43.10 Post-traumatic stress disorder, unspecified; Z86.69 Personal history of other diseases of the nervous system and sense organs; Z86.14 Personal history of Methicillin resistant Staphylococcus aureus infection; Z79.899 Other long term (current) drug therapy; Z88.8 Allergy status to other drugs, medicaments and biological substances; Z88.7 Allergy status to serum and vaccine; Z88.0 Allergy status to penicillin; W05.0XXA Fall from non-moving wheelchair, initial encounter; Y92.129 Unspecified place in nursing home as the place of occurrence of the external cause
CPT/HCPCS: 12013; 70450; 72125; 99284

== ENCOUNTER → 2017-08-07 | Day surgery (SDC) | payer MEDICARE, OTHER ==
[~2017-08-07] MED LIST: LACTATED RINGERS 1,000 ML IV SCH; LIDOCAINE 1% 20 ML VIAL (10MG/ML) FOR IV START INTRADERMA PRN
== END ==
LOC: EDSTATUS 08:00 → RADCTMAIN 13:21
PROVIDERS: ATTEND Family Medicine
DX: L03.213 Periorbital cellulitis (principal); A49.02 Methicillin resistant Staphylococcus aureus infection, unspecified site; Z53.8 Procedure and treatment not carried out for other reasons

== ENCOUNTER 2017-08-21 08:51 | Day surgery (SDC) | payer MEDICARE, OTHER ==
[2017-08-16 13:28] VITALS: BMI 25.0
[2017-08-21] MEDS ORDERED: MIDAZOLAM 2 MG/2 ML VIAL ONE (11:21)
[2017-08-21] MEDS ORDERED: fentaNYL (PF) 50 MCG/ML 2 ML AMP ONE (11:21)
[2017-08-21] MEDS ORDERED: LACTATED RINGERS 1,000 ML IV ONE ×2 (11:40)
--- NOTE | 2017-08-21 11:58 | CT ---
EXAMINATION TYPE: CT sinus wo con DATE OF EXAM: 08/21/2017 COMPARISON: CT brain July 23, 2017 HISTORY: Patient poor historian and sedated at time of scan CT DLP: 828.4 mGycm. Automated Exposure Control for Dose Reduction was Utilized. TECHNIQUE: CT scan of the sinuses is performed without contrast, axial images are obtained, coronal r eformatted images are also reviewed. FINDINGS: The paranasal sinuses including the frontal, ethmoid, sphenoid, and maxillary sinuses bila terally are well-aerated without abnormal opacification. The ostiomeatal complex is patent bilateral ly on the coronal images. Visualized portion of mastoid air cells show persistent patchy opacification on the right presumed re lated to retained secretions. Correlate clinically. There is asymmetric diminished size and calcified right globe redemonstrated. Visualized portion of brain parenchyma shows asymmetric increased left- sided atrophy unchanged from prior and periventricular chronic small vessel ischemic change. IMPRESSION: The sinuses are clear and the ostiomeatal complex is patent bilaterally. Possible right- sided mastoiditis, correlate clinically.
[2017-08-21 12:02] VITALS: TEMP 98
[2017-08-21 13:01] VITALS: RESP 18
[2017-08-21 13:41] VITALS: BP 145/84; PULSE 82
== END 2017-08-21 12:55 | disposition home or self-care (01) ==
LOC: RADCTMAIN 08:51
PROVIDERS: ATTEND Anesthesiology
DX: A49.02 Methicillin resistant Staphylococcus aureus infection, unspecified site (principal); L03.213 Periorbital cellulitis; G80.9 Cerebral palsy, unspecified; F43.12 Post-traumatic stress disorder, chronic; I25.10 Atherosclerotic heart disease of native coronary artery without angina pectoris; I10 Essential (primary) hypertension; I48.91 Unspecified atrial fibrillation; K21.9 Gastro-esophageal reflux disease without esophagitis; Z95.0 Presence of cardiac pacemaker; I48.2 Chronic atrial fibrillation; N40.0 Benign prostatic hyperplasia without lower urinary tract symptoms; L89.529 Pressure ulcer of left ankle, unspecified stage; Z79.899 Other long term (current) drug therapy; Z88.0 Allergy status to penicillin; Z88.7 Allergy status to serum and vaccine; Z88.8 Allergy status to other drugs, medicaments and biological substances
CPT/HCPCS: 70486; J2250; J3010

== ENCOUNTER 2017-10-27 13:59 | Inpatient (IN) | payer MEDICARE, OTHER ==
--- NOTE | 2017-10-27 14:28 | ED ---
SOB HPI - General Chief Complaint: Shortness of Breath Stated Complaint: poss aspiration Time Seen by Provider: 10/27/17 14:00 Source: patient, EMS, RN notes reviewed Mode of arrival: EMS Limitations: no limitations - History of Present Illness Initial Comments: This is a 82-year-old male with history of cervical palsy history of CHF among other medical issues who was brought in for evaluation of possible aspiration. He apparently was eating lunch and shortly thereafter started coughing he coughed up mucus and some food particulate matter this whole entire episode lasted about 15 minutes. He did have cyanosis apparently about his lips and fingernail beds this is since resolved he appears be back to normal per the caregivers. No other findings no complaints of chest pain no current cough fevers chills sweats or other symptoms the patient himself is a poor historian MD Complaint: shortness of breath, cough - Related Data Home Medications Medication Instructions Recorded Confirmed Metoprolol Succinate [Toprol XL] 25 mg PO DAILY 09/10/14 10/27/17 lamoTRIgine [LaMICtal] 300 mg PO QA 09/10/14 10/27/17 lamoTRIgine [LaMICtal] 350 mg PO HS 09/10/14 10/27/17 Polyethylene Glycol 3350 [Miralax] 17 gm PO DAILY 09/24/16 10/27/17 Ranitidine HCl [Zantac] 150 mg PO BID 09/24/16 10/27/17 Acetaminophen [Tylenol Arthritis] 650 mg PO QID 07/14/17 10/27/17 Calcium Carbonate/Vitamin D3 1 tab PO DAILY 07/14/17 10/27/17 [Calcium 500-Vit D3 200 Tablet] Dimethicone/Zinc Oxide [Inzo Zinc 1 applic TOPICAL BID 07/14/17 10/27/17 Oxide Barrier Cream] Docusate [Colace] 100 mg PO DAILY 07/14/17 10/27/17 Finasteride [Proscar] 5 mg PO HS 07/14/17 10/27/17 Hydrocortisone [Hydrocortisone 1 applic TOPICAL TID PRN 07/14/17 10/27/17 0.05%] Ipratropium-Albuterol Nebulize 3 ml INHALATION Q6H PRN 07/14/17 10/27/17 [Duoneb 0.5 mg-3 mg/3 ml Soln] Lactose-Reduced Food [Ensure Plus] 1 can PO TID 07/14/17 08/21/17 Loratadine [Claritin] 10 mg PO DAILY 07/14/17 10/27/17 Melatonin 5 mg PO HS 07/14/17 08/21/17 Multivitamin,Therapeutic [Thera] 1 tab PO DAILY 07/14/17 10/27/17 Mirtazapine [Remeron] 15 mg PO HS 08/19/17 10/27/17 Pantoprazole Sodium [Protonix] 40 mg PO DAILY 08/19/17 10/27/17 HYDROcodone/APAP 5-325MG [[place] 1 tab PO Q6HR PRN 10/27/17 10/27/17 5-325] Lactose-Reduced Food [Ensure Plus] 1 can PO 10/27/17 Melatonin 10 mg PO 10/27/17 Sulfamethox-Tmp 800-160Mg [Bactrim 1 tab PO Q12HR 10/27/17 10/27/17 DS 800-160 mg] traZODone HCL 50 mg PO HS 10/27/17 10/27/17 Previous Rx's Medication Instructions Recorded Aspirin 81 mg PO DAILY #30 chew 10/05/16 Allergies Allergy/AdvReac Type Severity Reaction Status Date / Time diphenhydramine HCl Allergy hyper and Verified 10/27/17 14:05 [From Benadryl] aggitated Influenza Virus Vaccines Allergy Confusion Verified 10/27/17 14:05 Penicillins AdvReac Unknown Verified 10/27/17 14:05 Review of Systems ROS Statement: Those systems with pertinent positive or pertinent negative responses have been documented in the HPI. ROS Other: All systems not noted in ROS Statement are negative. 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 Past Anesthesia/Blood Transfusion Reactions: Previous Problems w/ Anesthesia Additional Past Anesthesia/Blood Transfusion Reaction / Comment(s): limted family history. Type of Cardiac Device: Permanent Pacemaker Device Placement Date:: 2003 inserted and 2015 battery changed Past Psychological History: Anxiety, PTSD Smoking Status: Never smoker Past Alcohol Use History: None Reported Past Drug Use History: None Reported - Past Family History Father History Unknown: Yes Mother Family Medical History: Cancer Additional Family Medical History / Comment(s): ?lung cancer. General Exam - General Exam Comments Initial Comments: This is a well-developed sec appearing male with a stigmata of cerebral palsy Limitations: no limitations General appearance: alert, in no apparent distress Head exam: Present: atraumatic, normocephalic, normal inspection Eye exam: Present: normal appearance, PERRL, EOMI. Absent: scleral icterus, conjunctival injection, periorbital swelling ENT exam: Present: other Neck exam: Present: normal inspection. Absent: tenderness, meningismus, lymphadenopathy Respiratory exam: Present: normal lung sounds bilaterally. Absent: respiratory distress, wheezes, rales, rhonchi, stridor Cardiovascular Exam: Present: regular rate, normal rhythm, normal heart sounds. Absent: systolic murmur, diastolic murmur, rubs, gallop, clicks GI/Abdominal exam: Present: soft, normal bowel sounds. Absent: distended, tenderness, guarding, rebound, rigid Extremities exam: Present: full ROM Back exam: Present: other (Some kyphosis noted) Neurological exam: Present: alert. Absent: motor sensory deficit Skin exam: Present: warm, dry, intact, normal color. Absent: rash Course Vital Signs 10/27/17 10/27/17 14:06 16:15 Temperature 97.5 F L Pulse Rate 65 79 Respiratory 17 17 Rate Blood Pressure 134/74 140/73 O2 Sat by Pulse 93 L 93 L Oximetry Medical Decision Making - Medical Decision Making I did discuss findings with the patient's caregiver the patient be admitted with IV antibiotics consultation by pulmonary medicine. - Lab Data Result diagrams: 10/27/17 14:47 10/27/17 14:47 Lab Results 10/27/17 10/27/17 10/27/17 Range/Units 14:47 14:47 14:47 WBC 4.5 (3.8-10.6) k/uL RBC 4.38 (4.30-5.90) m/uL Hgb 12.4 L (13.0-17.5) gm/dL Hct 39.3 (39.0-53.0) % MCV 89.7 (80.0-100.0) fL MCH 28.3 (25.0-35.0) pg MCHC 31.6 (31.0-37.0) g/dL RDW 14.2 (11.5-15.5) % Plt Count 237 (150-450) k/uL Neutrophils % 53 % Lymphocytes % 34 % Monocytes % 7 % Eosinophils % 3 % Basophils % 1 % Neutrophils # 2.4 (1.3-7.7) k/uL Lymphocytes # 1.6 (1.0-4.8) k/uL Monocytes # 0.3 (0-1.0) k/uL Eosinophils # 0.1 (0-0.7) k/uL Basophils # 0.0 (0-0.2) k/uL PT (9.0-12.0) sec INR (<1.2) APTT (22.0-30.0) sec Sodium 143 (137-145) mmol/L Potassium 3.6 (3.5-5.1) mmol/L Chloride 99 (98-107) mmol/L Carbon Dioxide 32 H (22-30) mmol/L Anion Gap 12 mmol/L BUN 20 (9-20) mg/dL Creatinine 0.79 (0.66-1.25) mg/dL Est GFR (CKD-EPI)AfAm >90 (>60 ml/min/1.73 sqM) Est GFR (CKD-EPI)NonAf 83 (>60 ml/min/1.73 sqM) Glucose 114 H (74-99) mg/dL Calcium 10.3 H (8.4-10.2) mg/dL Magnesium 1.7 (1.6-2.3) mg/dL Total Bilirubin 0.2 (0.2-1.3) mg/dL AST 24 (17-59) U/L ALT 25 (21-72) U/L Alkaline Phosphatase 81 (38-126) U/L Total Creatine Kinase 28 L (55-170) U/L CK-MB (CK-2) 0.9 (0.0-2.4) ng/mL CK-MB (CK-2) Rel Index 3.2 Troponin I <0.012 (0.000-0.034) ng/mL NT-Pro-B Natriuret Pep pg/mL Total Protein 6.6 (6.3-8.2) g/dL Albumin 3.9 (3.5-5.0) g/dL 10/27/17 10/27/17 Range/Units 14:47 14:47 WBC (3.8-10.6) k/uL RBC (4.30-5.90) m/uL Hgb (13.0-17.5) gm/dL Hct (39.0-53.0) % MCV (80.0-100.0) fL MCH (25.0-35.0) pg MCHC (31.0-37.0) g/dL RDW (11.5-15.5) % Plt Count (150-450) k/uL Neutrophils % % Lymphocytes % % Monocytes % % Eosinophils % % Basophils % % Neutrophils # (1.3-7.7) k/uL Lymphocytes # (1.0-4.8) k/uL Monocytes # (0-1.0) k/uL Eosinophils # (0-0.7) k/uL Basophils # (0-0.2) k/uL PT 10.7 (9.0-12.0) sec INR 1.1 (<1.2) APTT 32.4 H (22.0-30.0) sec Sodium (137-145) mmol/L Potassium (3.5-5.1) mmol/L Chloride (98-107) mmol/L Carbon Dioxide (22-30) mmol/L Anion Gap mmol/L BUN (9-20) mg/dL Creatinine (0.66-1.25) mg/dL Est GFR (CKD-EPI)AfAm (>60 ml/min/1.73 sqM) Est GFR (CKD-EPI)NonAf (>60 ml/min/1.73 sqM) Glucose (74-99) mg/dL Calcium (8.4-10.2) mg/dL Magnesium (1.6-2.3) mg/dL Total Bilirubin (0.2-1.3) mg/dL AST (17-59) U/L ALT (21-72) U/L Alkaline Phosphatase (38-126) U/L Total Creatine Kinase (55-170) U/L CK-MB (CK-2) (0.0-2.4) ng/mL CK-MB (CK-2) Rel Index Troponin I (0.000-0.034) ng/mL NT-Pro-B Natriuret Pep 261 pg/mL Total Protein (6.3-8.2) g/dL Albumin (3.5-5.0) g/dL - EKG Data -: EKG Interpreted by Me (Pacemaker rhythm of 82. Heart 136 QRS 166 QT since QTC 456/532 no acute ch) - Radiology Data Radiology results: report reviewed (I did review the imaging there is evidence of consolidation right lower lobe aspiration versus mass is considered), image reviewed Disposition Clinical Impression: Right lower lobe pneumonia, Aspiration into airway Disposition: ADMITTED IP TO THIS [facility] Condition: Stable Referrals: Joshua Foreman MD [Primary Care Provider] - 1-2 days
[2017-10-27 14:56] LABS: Basophils % (A) 1 %; Eosinophils # (A) 0.1 k/uL (0-0.7); Eosinophils % (A) 3 %; HCT 39.3 % (39.0-53.0); HGB 12.4 gm/dL (13.0-17.5); Lymphocytes # (A) 1.6 k/uL (1.0-4.8); Lymphocytes % (A) 34 %; MCH 28.3 pg (25.0-35.0); MCHC 31.6 g/dL (31.0-37.0); MCV 89.7 fL (80.0-100.0); Mean Platelet Volume 7.7; Monocytes # (A) 0.3 k/uL (0-1.0); Monocytes % (A) 7 %; Neutrophils # (A) 2.4 k/uL (1.3-7.7); Neutrophils % (A) 53 %; Platelet Count 237 k/uL (150-450); RBC 4.38 m/uL (4.30-5.90); RDW 14.2 % (11.5-15.5); WBC 4.5 k/uL (3.8-10.6)
[2017-10-27 15:06] LABS: ALT 25 U/L (21-72); AST 24 U/L (17-59); Albumin 3.9 g/dL (3.5-5.0); Alkaline Phosphatase 81 U/L (38-126); Anion Gap 12 mmol/L; Blood Urea Nitrogen 20 mg/dL (9-20); Calcium 10.3 mg/dL (8.4-10.2); Carbon Dioxide 32 mmol/L (22-30); Chloride 99 mmol/L (98-107); Glucose 114 mg/dL (74-99); Magnesium 1.7 mg/dL (1.6-2.3); Potassium 3.6 mmol/L (3.5-5.1); Sodium 143 mmol/L (137-145); Total Bilirubin 0.2 mg/dL (0.2-1.3); Total Protein 6.6 g/dL (6.3-8.2)
[2017-10-27 15:12] LABS: INR 1.1 (<1.2); Prothrombin Time 10.7 sec (9.0-12.0)
[2017-10-27 15:13] LABS: Partial Thromboplastin Time 32.4 sec (22.0-30.0)
[2017-10-27 15:19] LABS: Creatine Kinase 28 U/L (55-170)
--- NOTE | 2017-10-27 15:25 | XR ---
EXAMINATION TYPE: XR chest 2V DATE OF EXAM: 10/27/2017 COMPARISON: October 01, 2016 HISTORY: Difficulty breathing TECHNIQUE: Frontal and lateral views of the chest are obtained. FINDINGS: There is an implantable cardiac device the right lower chest. 2 leads are noted going into the heart. There is an opacity at the right lung base which is felt to be due to consolidation. When compared to the previous study from October 01, 2016 the cardiac silhouette has shifted more to the rig ht. No definite pneumothorax is identified. There appears to be somewhat greater expansion of the lef t lung. There also appears to be possibly a lucent halo surrounding the cardiac silhouette which coul d be due to pericardial effusion. Correlation with echocardiogram is recommended. Severe degenerative changes are noted in the osseous structures. There is a lucency underneath the le ft hemidiaphragm which is felt to be due to stomach and colon if there remains clinical concern follo w-up is required. IMPRESSION: 1. What is felt to be consolidation in the right lower lobe with movement of the cardiac silhouette t o the right. Pneumonia, neoplasm, and/or effusion, and/or other etiologies are not fully excluded. 2. Lucency surrounding the cardiac silhouette could be due to pericardial effusion or pneumopericardi um. Correlation with echocardiography is recommended if warranted. 3. Lucency underneath left hemidiaphragm could be within the colon or stomach. If there remains clini mejia concern for free intraperitoneal air follow-up is required.
[2017-10-27 15:32] LABS: Creatine Kinase MB 0.9 ng/mL (0.0-2.4); Troponin I <0.012 ng/mL (0.000-0.034)
[2017-10-27] MEDS ORDERED: SODIUM CHLORIDE 0.9% 500 ML IV STA (16:19)
[2017-10-27] MEDS ORDERED: PNEUMONIA PROTOCOL UTILIZED 1 EACH MISC PO PRN (17:21)
[2017-10-27] MEDS ORDERED: CLINDAMYCIN 600 MG in DEXTROSE 5% IN WATER 50 ML IVPB STA ×2 (17:22)
[2017-10-27] MEDS ORDERED: IPRATROPIUM-ALBUTEROL 3 ML NEB INHALATION PRN (17:23)
[2017-10-27] MEDS ORDERED: HYDROCORTISONE 1% CREAM 30 GM TUBE TOPICAL PRN (17:23)
[2017-10-27] MEDS ORDERED: HYDROcodone/APAP 5-325MG 1 EACH TAB PO PRN (17:23)
[2017-10-27] MEDS: SODIUM CHLORIDE 0.9% 1,000 ML IV SCH (17:57)
--- NOTE | 2017-10-27 18:55 | P.HPIM ---
History of Present Illness Patient is an 82-year-old chronically debilitated, history of cerebral palsy custodial residents since last year March was sent in here with because of possible aspiration patient is found to have right lower lobe infiltrate and questionable pericardial effusion and cannot provide me any history is his baseline patient doesn't have any fevers chills patient doesn't have any cough patient's mental status is at his baseline. Patient does have chronic contractures and 2% dependent at custodial. Patient had moderate pulmonary hypertension with normal ejection fraction the past. Because of concerns of pericardial effusion echocardiogram will be obtained again. Chest x-ray was read as possibility of pneumoperitoneum although patient does not have any clinical signs or symptoms of the perforated bowel patient's abdomen is soft no rebound or rigidity. Patient denied any significant abdominal pain. Patient was started on kanamycin due to penicillin ALLERGY and was admitted. Patient normal saline follows with Dr. Hurt, who will continue to follow the patient from tomorrow. Patient was sent in by rehabilitation nurse physician from the custodial Dr. Foreman and was admitted to my service. 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 Past Anesthesia/Blood Transfusion Reactions: Previous Problems w/ Anesthesia Additional Past Anesthesia/Blood Transfusion Reaction / Comment(s): limted family history. Type of Cardiac Device: Permanent Pacemaker Device Placement Date:: 2003 inserted and 2016 battery changed Past Psychological History: Anxiety, PTSD Smoking Status: Never smoker Past Alcohol Use History: None Reported Past Drug Use History: None Reported - Past Family History Father History Unknown: Yes Mother Family Medical History: Cancer Additional Family Medical History / Comment(s): ?lung cancer. Medications and Allergies Home Medications Medication Instructions Recorded Confirmed Type Metoprolol Succinate [Toprol XL] 25 mg PO DAILY 09/10/14 10/27/17 History lamoTRIgine [LaMICtal] 300 mg PO QAM 09/10/14 10/27/17 History lamoTRIgine [LaMICtal] 350 mg PO HS 09/10/14 10/27/17 History Polyethylene Glycol 3350 [Miralax] 17 gm PO DAILY 09/24/16 10/27/17 History Aspirin 81 mg PO DAILY #30 chew 10/05/16 10/27/17 Rx Calcium Carbonate/Vitamin D3 1 tab PO HS 07/14/17 10/27/17 History [Calcium 500-Vit D3 200 Tablet] Docusate [Colace] 100 mg PO DAILY 07/14/17 10/27/17 History Finasteride [Proscar] 5 mg PO HS 07/14/17 10/27/17 History Ipratropium-Albuterol Nebulize 3 ml INHALATION RT-Q6H PRN 07/14/17 10/27/17 History [Duoneb 0.5 mg-3 mg/3 ml Soln] Loratadine [Claritin] 10 mg PO DAILY 07/14/17 10/27/17 History Multivitamin,Therapeutic [Thera] 1 tab PO DAILY 07/14/17 10/27/17 History Amino Acids/Protein Hydrolys 30 ml PO BID 10/27/17 10/27/17 History [Pro-Stat Supplement] Ferrous Sulfate [Feosol] 325 mg PO BID 10/27/17 10/27/17 History HYDROcodone/APAP 5-325MG [[place] 1 tab PO Q12H PRN 10/27/17 10/27/17 History 5-325] Lactose-Reduced Food [Ensure Plus] 1 can PO TID 10/27/17 10/27/17 History Magnesium Hydroxide [Milk of 2,400 mg PO DAILY PRN 10/27/17 10/27/17 History Magnesia] Mirtazapine [Remeron] 7.5 mg PO W/SUPPER 10/27/17 10/27/17 History Sulfamethox-Tmp 800-160Mg [Bactrim 1 tab PO Q12HR 10/27/17 10/27/17 History DS 800-160 mg] rOPINIRole HCL [Requip] 0.5 mg PO HS 10/27/17 10/27/17 History traZODone HCL 50 mg PO HS 10/27/17 10/27/17 History Allergies Allergy/AdvReac Type Severity Reaction Status Date / Time diphenhydramine HCl Allergy hyper and Verified 10/27/17 18:03 [From Benadryl] aggitated Influenza Virus Vaccines Allergy Confusion Verified 10/27/17 18:03 Penicillins AdvReac Unknown Verified 10/27/17 18:03 Physical Exam Vitals: Vital Signs Temp Pulse Pulse Resp BP BP Pulse Ox 10/27/17 18:30 99.4 F 89 20 145/84 89 L 10/27/17 18:09 98.1 F 74 17 137/70 10/27/17 16:15 79 17 140/73 93 L 10/27/17 14:06 97.5 F L 65 17 134/74 93 L Intake and Output 10/27/17 10/27/17 10/27/17 06:59 14:59 22:59 Other: Weight 54.431 kg PHYSICAL EXAMINATION: GENERAL: Patient is alert and able to assess his orientation, mumbles mostly. Patient has chronic contractures thin built apparently did lose significant weight since his admission to custodial. HEENT: Pupils are round and equally reacting to light. EOMI. No scleral icterus. No conjunctival pallor. Normocephalic, atraumatic. No pharyngeal erythema. No thyromegaly. CARDIOVASCULAR: S1 and S2 present. No murmurs, rubs, or gallops. PULMONARY: Chest is clear to auscultation, no wheezing or crackles. ABDOMEN: Soft, nontender, nondistended, normoactive bowel sounds. No palpable organomegaly. MUSCULOSKELETAL: Contractures EXTREMITIES: No cyanosis, clubbing, or pedal edema. NEUROLOGICAL: Gross neurological examination did not reveal any new focal deficits. Does have chronic contractures SKIN: No rashes. Results CBC & Chem 7: 10/27/17 14:47 10/27/17 14:47 Labs: Abnormal Lab Results - Last 24 Hours (Table) 10/27/17 10/27/17 10/27/17 Range/Units 14:47 14:47 14:47 Hgb 12.4 L (13.0-17.5) gm/dL APTT (22.0-30.0) sec Carbon Dioxide 32 H (22-30) mmol/L Glucose 114 H (74-99) mg/dL Calcium 10.3 H (8.4-10.2) mg/dL Total Creatine Kinase 28 L (55-170) U/L 10/27/17 Range/Units 14:47 Hgb (13.0-17.5) gm/dL APTT 32.4 H (22.0-30.0) sec Carbon Dioxide (22-30) mmol/L Glucose (74-99) mg/dL Calcium (8.4-10.2) mg/dL Total Creatine Kinase (55-170) U/L Assessment and Plan Plan: -Possible aspiration pneumonia right lower lobe infiltrate patient is on kanamycin which will be continued. Speech therapy will be consulted for swallow evaluation -Rule out pericardial effusion: Echocardiogram will be obtained -Moderate pulmonary hypertension -Hypertension -Chronic debility -Cerebral palsy with contractures. - anemia chronic and stable -Year disorder For above-mentioned chronic medical problems patient will be resumed and continued on appropriate home medications it.
[2017-10-27 18:56] VITALS: BMI 23.4
[2017-10-27] MEDS: ACETAMINOPHEN TAB 325 MG TAB PO SCH ×2 (19:29→23:32)
[2017-10-27] MEDS: FINASTERIDE 5 MG TAB PO SCH (22:25)
[2017-10-27] MEDS: ZINC OXIDE 20% OINT 28.4 GM TUBE TOPICAL SCH (22:25)
[2017-10-27] MEDS: FAMOTIDINE 20 MG TAB PO SCH (22:32)
[2017-10-27] MEDS: MIRTAZAPINE 15 MG TAB PO SCH (22:32)
[2017-10-27] MEDS: MELATONIN 5 MG TABLET PO SCH (22:32)
[2017-10-27] MEDS: traZODone HCL 50 MG TAB PO SCH (22:32)
[2017-10-27] MEDS: lamoTRIgine 100 MG TAB PO SCH (22:33)
[2017-10-27] MEDS: CLINDAMYCIN 600 MG in DEXTROSE 5% IN WATER 50 ML IVPB SCH ×2 (23:32)
[2017-10-28] MEDS: CLINDAMYCIN 600 MG in DEXTROSE 5% IN WATER 50 ML IVPB SCH ×6 (06:20→17:54)
[2017-10-28] MEDS: LORATADINE 10 MG TAB PO SCH ×2 (09:02→12:03)
[2017-10-28] MEDS: ASPIRIN 81 MG PO SCH ×2 (09:02→12:03)
[2017-10-28] MEDS: PANTOPRAZOLE 40 MG TABLET PO SCH ×2 (09:02→12:10)
[2017-10-28] MEDS: lamoTRIgine 100 MG TAB PO SCH ×3 (09:02→20:51)
[2017-10-28] MEDS: ACETAMINOPHEN TAB 325 MG TAB PO SCH ×5 (09:02→20:54)
[2017-10-28] MEDS: DOCUSATE 100 MG CAP PO SCH ×2 (09:02→12:03)
[2017-10-28] MEDS: METOPROLOL SUCCINATE (ER) 25 MG TAB.ER.24H PO SCH ×2 (09:02→12:03)
[2017-10-28] MEDS: FAMOTIDINE 20 MG TAB PO SCH (09:02)
[2017-10-28] MEDS: POLYETHYLENE GLYCOL 3350 17 GM POWD.PACK PO SCH (09:02)
[2017-10-28] MEDS: ZINC OXIDE 20% OINT 28.4 GM TUBE TOPICAL SCH ×3 (09:03→20:53)
--- NOTE | 2017-10-28 10:38 | P.CNPUL ---
History of Present Illness Consult date: 10/28/17 Requesting physician: Delmis Mitchell Reason for consult: cough, pneumonia, abnormal CXR/CT Chief complaint: Severe coughing spell, shortness of breath, aspiration pneumonia History of present illness: Mr. Abrams is a 82-year-old white male patient, who resides at a local residential, was brought into the emergency department on 10/27/2017 at 1425 or evaluation of possible aspiration. Patient was reportedly eating lunch and shortly thereafter started coughing, became short of breath, and cyanotic. Patient was afebrile, denied any chest pain. He has underlying history of cerebral palsy, history of CHF, permanent pacemaker, atrial fibrillation, hypertension, seizures, he is mentally handicapped, history of kyphoscoliosis of the spine. Chest x-ray completed in the emergency room showed consolidation in the right lower lobe, consistent with right sided pneumonia. Patient did have a fever spike last night with a temp of 101.3F, did have an episode of hypoxemia, with pulse ox of 89 on room air. He is requiring oxygen intermittently. Lab work did not show any evidence of leukocytosis, WBC is 4.5 , hemoglobin is 12.4, CO2 is 32, the rest of the electrolytes were within normal limits, renal profile is within normal limits. Cardiac enzymes and troponins were negative 1, proBNP is within normal limits at 261. Patient was placed on clindamycin for empiric antibiotic coverage, nebulized treatments and admitted for further management. Review of Systems ROS obtained from the chart, the patient is a poor historian All systems: negative Constitutional: Denies chills, Denies fever Eyes: denies blurred vision, denies pain Ears, nose, mouth and throat: Denies headache, Denies sore throat Cardiovascular: Denies chest pain, Denies shortness of breath Respiratory: Denies cough Gastrointestinal: Denies abdominal pain, Denies diarrhea, Denies nausea, Denies vomiting Musculoskeletal: Reports gait dysfunction, Reports limitation of motion, Denies myalgias Integumentary: Denies pruritus, Denies rash Neurological: Denies numbness, Denies weakness Psychiatric: Denies anxiety, Denies depression Endocrine: Denies fatigue, Denies weight change Past Medical History Past Medical History: Atrial Fibrillation, Eye Disorder, Hypertension, Osteoarthritis (OA), Prostate Disorder, Seizure Disorder, Skin Disorder Additional Past Medical History / Comment(s): LAST SEIZURE 10 YEARS AGO, in wheelchair, speech difficult to understand-wearing depends, cerebral palsy- severe mentally handicapped-mentally about a 3 yr old, R leg deformity, BPH, COUGHS UP A LOT OF MUCOUS, kyphosis, 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 Past Anesthesia/Blood Transfusion Reactions: Previous Problems w/ Anesthesia Additional Past Anesthesia/Blood Transfusion Reaction / Comment(s): limted family history. Type of Cardiac Device: Permanent Pacemaker Device Placement Date:: 2003 inserted and 2015 battery changed Past Psychological History: Anxiety, PTSD Smoking Status: Never smoker Past Alcohol Use History: None Reported Past Drug Use History: None Reported - Past Family History Father History Unknown: Yes Mother Family Medical History: Cancer Additional Family Medical History / Comment(s): ?lung cancer. Medications and Allergies Home Medications Medication Instructions Recorded Confirmed Type Metoprolol Succinate [Toprol XL] 25 mg PO DAILY 09/10/14 10/27/17 History lamoTRIgine [LaMICtal] 300 mg PO [facility] 09/10/14 10/27/17 History lamoTRIgine [LaMICtal] 350 mg PO 09/10/14 10/27/17 History Polyethylene Glycol 3350 [Miralax] 17 gm PO DAILY 09/24/16 10/27/17 History Aspirin 81 mg PO DAILY #30 chew 10/05/16 10/27/17 Rx Calcium Carbonate/Vitamin D3 1 tab PO 07/14/17 10/27/17 History [Calcium 500-Vit D3 200 Tablet] Docusate [Colace] 100 mg PO DAILY 07/14/17 10/27/17 History Finasteride [Proscar] 5 mg PO 07/14/17 10/27/17 History Ipratropium-Albuterol Nebulize 3 ml INHALATION RT-Q6H PRN 07/14/17 10/27/17 History [Duoneb 0.5 mg-3 mg/3 ml Soln] Loratadine [Claritin] 10 mg PO DAILY 07/14/17 10/27/17 History Multivitamin,Therapeutic [Thera] 1 tab PO DAILY 07/14/17 10/27/17 History Amino Acids/Protein Hydrolys 30 ml PO BID 10/27/17 10/27/17 History [Pro-Stat Supplement] Ferrous Sulfate [Feosol] 325 mg PO BID 10/27/17 10/27/17 History HYDROcodone/APAP 5-325MG [[place]iss 1 tab PO Q12H PRN 10/27/17 10/27/17 History 5-325] Lactose-Reduced Food [Ensure Plus] 1 can PO TID 10/27/17 10/27/17 History Magnesium Hydroxide [Milk of 2,400 mg PO DAILY PRN 10/27/17 10/27/17 History Magnesia] Mirtazapine [Remeron] 7.5 mg PO W/SUPPER 10/27/17 10/27/17 History Sulfamethox-Tmp 800-160Mg [Bactrim 1 tab PO Q12HR 10/27/17 10/27/17 History DS 800-160 mg] rOPINIRole HCL [Requip] 0.5 mg PO HS 10/27/17 10/27/17 History traZODone HCL 50 mg PO HS 10/27/17 10/27/17 History Allergies Allergy/AdvReac Type Severity Reaction Status Date / Time diphenhydramine HCl Allergy hyper and Verified 10/27/17 18:03 [From Benemmanuelryl] aggitated Influenza Virus Vaccines Allergy Confusion Verified 10/27/17 18:03 Penicillins AdvReac Unknown Verified 10/27/17 18:03 Physical Exam Vitals: Vital Signs Temp Pulse Pulse Resp BP BP Pulse Ox 10/28/17 07:00 98.5 F 80 18 120/65 10/28/17 00:00 18 10/27/17 23:00 101.3 F H 98 18 144/61 10/27/17 18:30 99.4 F 89 20 145/84 89 L 10/27/17 18:09 98.1 F 74 17 137/70 10/27/17 16:15 79 17 140/73 93 L 10/27/17 14:06 97.5 F L 65 17 134/74 93 L Intake and Output 10/27/17 10/28/17 10/28/17 22:59 06:59 14:59 Intake Total 100 100 Output Total 100 Balance 100 0 Intake: Oral 100 100 Output: Urine 100 Other: Voiding Method Urinal Diaper Incontinent # Voids 2 1 # Bowel Movements 0 0 Weight 54.431 kg - Constitutional Alert, 82-year-old frail-looking white male, nonverbal, resting in bed, patient is noted to have chronic contractures of upper and lower extremities, in no acute distress. General appearance: no acute distress, thin - EENT Eyes: PERRLA ENT: NA/AT Ears: bilateral: normal - Neck Neck: no lymphadenopathy Carotids: bilateral: upstroke normal Thyroid: bilateral: normal size - Respiratory Respiratory: bilateral: rhonchi - Cardiovascular Rhythm: regular Heart sounds: normal: S1, S2 - Gastrointestinal General gastrointestinal: no organomegaly, soft, no tenderness - Integumentary Integumentary: normal turgor, pale - Neurologic Neurologic: CNII-XII intact - Musculoskeletal Musculoskeletal: generalized weakness - Psychiatric Difficult to assess, patient is nonverbal. Has a history of mental handicap Results - Laboratory Findings CBC and BMP: 10/27/17 14:47 10/27/17 14:47 PT/INR, D-dimer PT 10.7 sec (9.0-12.0) 10/27/17 14:47 INR 1.1 (<1.2) 10/27/17 14:47 Abnormal lab findings: Abnormal Labs 10/27/17 10/27/17 10/27/17 14:47 14:47 14:47 Hgb 12.4 L APTT Carbon Dioxide 32 H Glucose 114 H Calcium 10.3 H Total Creatine Kinase 28 L 10/27/17 14:47 Hgb APTT 32.4 H Carbon Dioxide Glucose Calcium Total Creatine Kinase - Diagnostic Findings Chest x-ray: report reviewed, image reviewed Assessment and Plan Plan: Assessment: #1. Acute hypoxic respiratory failure secondary to aspiration pneumonia #2. History of cerebral palsy, severely mentally hadicapped #3. Seizure disorder #4. Hypertension #5. Osteoarthritis #6. Prostate disorder, BPH with history of lower urinary tract infections #7. Kyphoscoliosis of the spine #8. Right eye blindness #9. 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 History of A. fib, with a permanent pacemaker #11. Poor underlying functional status, patient is a resident of a residential Plan: Continue with current empiric antibiotic coverage, bronchodilator nebulized treatments. Maintain aspiration precautions, HOB at of the bed up 30 at all times. Unable to collect a sputum sample, he has severe mental handicapped and is unable to follow directions. Monitor fever pattern, monitor labs. Continue to follow I performed a history & physical examination of the patient and discussed their management with my nurse practitioner, Aliyah Painting. I reviewed the nurse practitioner's note and agree with the documented findings and plan of care. Lung sounds are positive for diffuse rhonchi bilaterally. The findings and the impression was discussed with the patient. I attest to the documentation by the nurse practitioner.
--- NOTE | 2017-10-28 12:00 | XR ---
EXAMINATION TYPE: XR chest 1V portable DATE OF EXAM: 10/28/2017 CLINICAL HISTORY: Difficulty breathing and pneumonia progress study. TECHNIQUE: Single AP portable frontal view of the chest is obtained. COMPARISON: Chest x-ray from one day earlier And older studies. FINDINGS: Osseous structures are demineralized. Chronic deformities to bilateral shoulders is seen. Underlying scoliosis is redemonstrated. Evaluation suboptimal due to anatomic distortion. There is persistent cardiomegaly with dual lead pacemaker. There is large hiatal hernia or intrathora cic stomach. There is chronic parenchymal change with right mid to basilar opacity. IMPRESSION: Overall stable findings, persistent right mid to lower lung infiltrate and/or atelectas is.
[2017-10-28] MEDS: MULTIVITAMINS, THERA 1 EACH TAB PO SCH (14:47)
[2017-10-28] MEDS: CALCIUM CARB-VIT D 500MG-200UN 1 EACH TAB PO SCH (14:47)
--- NOTE | 2017-10-28 15:42 | P.PN ---
Subjective Progress Note Date: 10/28/17 This is an 82-year-old male patient of Dr. Hurt residing at [facility] with history of cerebral palsy with severe intellectual disability, contractures of the upper and lower extremities and kyphoscoliosis of the spine blindness in the right thigh, atrial fibrillation, hypertension, osteoarthritis , benign prostatic hypertrophy patient came into [facility] emergency center for evaluation for possible aspiration pneumonia with coughing , shortness of breath and cyanosis. He has temperature max 101.3 and hypoxia with a pulse ox of 89% on room air. White count was normal. Patient was started on clindamycin and admitted to the [facility] floor. Repeat chest x-ray shows a persistent right mid to lower lung infiltrate and/or atelectasis. Patient has been seen in consultation by Dr. Castillo from pulmonary medicine. Patient was initially seen by Dr. Mckoy asthma but because the patient is Dr. Gupta he has switch the patient back to us. Patient has been seen by speech therapist with recommendations for nectar thick liquids and chopped diet. Objective - Vital Signs Vital signs: Vital Signs Temp 98.5 F 10/28/17 07:00 Pulse 80 10/28/17 07:00 Resp 18 10/28/17 07:00 BP 120/65 10/28/17 07:00 Pulse Ox 89 L 10/27/17 18:30 Intake & Output 10/27/17 10/28/17 10/28/17 18:59 06:59 18:59 Intake Total 200 Output Total 100 Balance 100 Weight 54.431 kg Intake: Oral 200 Output: Urine 100 Other: Voiding Method Urinal Diaper Incontinent # Voids 1 # Bowel Movements 0 - Exam Gen: This is a thin 82-year-old male. He is resting in bed. He is noted to have contractions of the upper and lower extremities. No respiratory distress is noted. HEENT: Head is atraumatic, normocephalic. Pupils equal, round. Sclerae is anicteric. NECK: Supple. No JVD. No lymphadenopathy. No thyromegaly. LUNGS: Bilateral rhonchi. No intercostal retractions. HEART: Regular rate and rhythm. No murmur. ABDOMEN: Soft. Bowel sounds are present. No masses. No tenderness. EXTREMITIES: No pedal edema. No calf tenderness. NEUROLOGICAL: Patient is awake, nonverbal. - Labs CBC & Chem 7: 10/27/17 14:47 10/27/17 14:47 Labs: Abnormal Lab Results - Last 24 Hours (Table) 10/27/17 10/27/17 10/27/17 Range/Units 14:47 14:47 14:47 Hgb 12.4 L (13.0-17.5) gm/dL APTT (22.0-30.0) sec Carbon Dioxide 32 H (22-30) mmol/L Glucose 114 H (74-99) mg/dL Calcium 10.3 H (8.4-10.2) mg/dL Total Creatine Kinase 28 L (55-170) U/L 10/27/17 Range/Units 14:47 Hgb (13.0-17.5) gm/dL APTT 32.4 H (22.0-30.0) sec Carbon Dioxide (22-30) mmol/L Glucose (74-99) mg/dL Calcium (8.4-10.2) mg/dL Total Creatine Kinase (55-170) U/L Assessment and Plan Plan: 1. Acute hypoxic respiratory failure secondary to aspiration pneumonia. Continue DuoNeb treatments every 6 hours as needed, clindamycin 600 mg every 6 hours IV. Speech therapy evaluation appreciated. Patient placed on a job diet with nectar thick liquids. Pelvic medicine is following the patient 2. History of cerebral palsy, severe intellectual disability, bilateral upper and lower extremity contractures, kyphoscoliosis, stable. 3. History of seizure disorder, no recent seizure activity. Continue Lamictal 4. Hypertension. Continue Toprol-XL 25 mg daily 5. Benign prostatic hypertrophy. Continue Proscar daily 6. Osteoarthritis. 7. Right eye blindness. 8. History of atrial fibrillation probable chronic with permanent pacemaker. 9. DVT prophylaxis. 10. GI prophylaxis. Protonix Discharge plan: Return to [facility] in the care of Dr. Hurt Impression and plan of care have been directed as dictated by the signing physician. Michelle Casillas nurse practitioner acting as scribe for signing physician.
[2017-10-28 16:02] VITALS: BP 108/55
[2017-10-28] MEDS: SODIUM CHLORIDE 0.9% 1,000 ML IV SCH (17:55)
[2017-10-28] MEDS: FINASTERIDE 5 MG TAB PO SCH (20:51)
[2017-10-28] MEDS: MELATONIN 5 MG TABLET PO SCH (20:51)
[2017-10-28] MEDS: traZODone HCL 50 MG TAB PO SCH (20:51)
[2017-10-28] MEDS: MIRTAZAPINE 15 MG TAB PO SCH (20:53)
[2017-10-29] MEDS: CLINDAMYCIN 600 MG in DEXTROSE 5% IN WATER 50 ML IVPB SCH ×8 (00:32→18:41)
[2017-10-29 01:38] VITALS: PULSE 71; RESP 18; TEMP 98
[2017-10-29] MEDS: METOPROLOL SUCCINATE (ER) 25 MG TAB.ER.24H PO SCH ×2 (08:44→12:39)
[2017-10-29] MEDS: LORATADINE 10 MG TAB PO SCH ×2 (08:44→12:39)
[2017-10-29] MEDS: ACETAMINOPHEN TAB 325 MG TAB PO SCH ×4 (08:44→18:41)
[2017-10-29] MEDS: lamoTRIgine 100 MG TAB PO SCH ×2 (08:44→12:38)
[2017-10-29] MEDS: DOCUSATE 100 MG CAP PO SCH ×2 (08:44→12:38)
[2017-10-29] MEDS: POLYETHYLENE GLYCOL 3350 17 GM POWD.PACK PO SCH (08:44)
[2017-10-29] MEDS: ASPIRIN 81 MG PO SCH ×2 (08:44→12:38)
[2017-10-29] MEDS: PANTOPRAZOLE 40 MG TABLET PO SCH ×2 (08:44→12:39)
[2017-10-29] MEDS: ZINC OXIDE 20% OINT 28.4 GM TUBE TOPICAL SCH (08:45)
--- NOTE | 2017-10-29 09:22 | P.PN ---
Subjective Progress Note Date: 10/29/17 Principal diagnosis: Acute hypoxic respiratory failure, secondary to aspiration pneumonia Mr. Abrams is a 82-year-old white male patient, who resides at a local [place], was brought into the emergency department on 10/27/2017 at 1425 or evaluation of possible aspiration. Patient was reportedly eating lunch and shortly thereafter started coughing, became short of breath, and cyanotic. Patient was afebrile, denied any chest pain. He has underlying history of cerebral palsy, history of CHF, permanent pacemaker, atrial fibrillation, hypertension, seizures, he is mentally handicapped, history of kyphoscoliosis of the spine. Chest x-ray completed in the emergency room showed consolidation in the right lower lobe, consistent with right sided pneumonia. Patient did have a fever spike last night with a temp of 101.3F, did have an episode of hypoxemia, with pulse ox of 89 on room air. He is requiring oxygen intermittently. Lab work did not show any evidence of leukocytosis, WBC is 4.5 , hemoglobin is 12.4, CO2 is 32, the rest of the electrolytes were within normal limits, renal profile is within normal limits. Cardiac enzymes and troponins were negative 1, proBNP is within normal limits at 261. Patient was placed on clindamycin for empiric antibiotic coverage, nebulized treatments and admitted for further management. On 10/29/2017 patient seen in follow-up on medical surgical floor. He is resting in bed, does not appear to be in any distress. His last febrile episode was on 10/27/2017 at 2300. Patient has been afebrile since, on room air , with O2 sat 91%. Lung sounds are positive for some scattered rhonchi, no wheezes. Blood cultures are negative at the 24-hour elton, unable to collect a sputum culture. Patient remains on empiric antibiotics in the form of clindamycin, nebulized bronchodilators. Speech therapy was consulted for evaluation of patient's swallowing. Objective - Vital Signs Vital signs: Vital Signs Temp 98.0 F 10/28/17 23:00 Pulse 71 10/28/17 23:00 Resp 18 10/28/17 23:00 BP 108/55 10/28/17 15:00 Pulse Ox 91 L 10/28/17 15:00 Intake & Output 10/28/17 10/29/17 10/29/17 18:59 06:59 18:59 Intake Total 550 300 Output Total 100 200 Balance 450 100 Weight 54.431 kg Intake: Oral 550 300 Output: Urine 100 200 Other: Voiding Method Urinal Diaper Incontinent # Voids 2 1 # Bowel Movements 0 - Exam Alert, 82-year-old frail-looking white male, nonverbal, resting in bed, patient is noted to have chronic contractures of upper and lower extremities, in no acute distress. General appearance: no acute distress, thin - EENT Eyes: PERRLA ENT: NA/AT Ears: bilateral: normal - Neck Neck: no lymphadenopathy Carotids: bilateral: upstroke normal Thyroid: bilateral: normal size - Respiratory Respiratory: bilateral: rhonchi - Cardiovascular Rhythm: regular Heart sounds: normal: S1, S2 - Gastrointestinal General gastrointestinal: no organomegaly, soft, no tenderness - Integumentary Integumentary: normal turgor, pale - Neurologic Neurologic: CNII-XII intact - Musculoskeletal Musculoskeletal: generalized weakness - Psychiatric Difficult to assess, patient is nonverbal. Has a history of mental handicap - Labs CBC & Chem 7: 10/27/17 14:47 10/27/17 14:47 Labs: Microbiology - Last 24 Hours (Table) 10/27/17 19:08 Blood Culture - Preliminary Blood No Growth after 24 hours 10/27/17 18:59 Blood Culture - Preliminary Blood No Growth after 24 hours Assessment and Plan Plan: Assessment: #1. Acute hypoxic respiratory failure secondary to aspiration pneumonia #2. History of cerebral palsy, severely mentally hadicapped #3. Seizure disorder #4. Hypertension #5. Osteoarthritis #6. Prostate disorder, BPH with history of lower urinary tract infections #7. Kyphoscoliosis of the spine #8. Right eye blindness #9. 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 History of A. fib, with a permanent pacemaker #11. Poor underlying functional status, patient is a resident [place] Plan: Seen in follow-up, afebrile, vital signs are stable, no evidence of any respiratory distress. Patient is on a modified diet with thickened liquids, awaiting evaluation by speech therapy. Continue with clindamycin, nebulized treatments. Maintain aspiration precautions, head of the bed 30 at all times. Patient remains stable from pulmonary standpoint, we will see the patient on as-needed basis. Thank you for this consultation I performed a history & physical examination of the patient and discussed their management with my nurse practitioner, Aliyah Painting. I reviewed the nurse practitioner's note and agree with the documented findings and plan of care. Lung sounds are positive for diffuse rhonchi bilaterally. The findings and the impression was discussed with the patient. I attest to the documentation by the nurse practitioner. Time with Patient: Less than 30
[2017-10-29] MEDS: MULTIVITAMINS, THERA 1 EACH TAB PO SCH (12:39)
[2017-10-29] MEDS: CALCIUM CARB-VIT D 500MG-200UN 1 EACH TAB PO SCH (12:39)
--- NOTE | 2017-10-29 13:11 | P.DS ---
Providers Date of admission: 10/27/17 17:21 Expected date of discharge: 10/29/17 Attending physician: Maria M Hurt Consults: 10/27/17 17:21 Consult Physician Routine Consulting Provider: [place] Castillo Consult Reason/Comments: Right lower lobe consolidation mass versus aspiration Do you want consulting provider notified?: Yes Primary care physician: Maria M Hurt [facility] Course: This is an 82-year-old male patient of Dr. Hurt residing at [facility] with history of cerebral palsy with severe intellectual disability, contractures of the upper and lower extremities and kyphoscoliosis of the spine blindness in the right thigh, atrial fibrillation, hypertension, osteoarthritis , benign prostatic hypertrophy patient came into [facility] emergency center for evaluation for possible aspiration pneumonia with coughing , shortness of breath and cyanosis. He has temperature max 101.3 and hypoxia with a pulse ox of 89% on room air. White count was normal. Patient was started on clindamycin and admitted to the [facility] floor. Repeat chest x-ray shows a persistent right mid to lower lung infiltrate and/or atelectasis. Patient has been seen in consultation by Dr. Castillo from pulmonary medicine. Patient was initially seen by Dr. Mckoy asthma but because the patient is Dr. Gupta he has switch the patient back to us. Patient has been seen by speech therapist with recommendations for nectar thick liquids and chopped diet. 10/29: Pulmonary medicine is now following the patient on an as-needed basis. Patient is wanting to return to [facility]. Family at bedside. Patient will be moving to a [facility] next week. Patient will be discharged to [facility] today in stable condition. Discharge diagnoses: 1. Acute hypoxic respiratory failure secondary to aspiration pneumonia. 2. History of cerebral palsy, severe intellectual disability, bilateral upper and lower extremity contractures, kyphoscoliosis, stable. 3. History of seizure disorder, no recent seizure activity. 4. Hypertension. 5. Benign prostatic hypertrophy. 6. Osteoarthritis. 7. Right eye blindness. 8. History of atrial fibrillation probable chronic with permanent pacemaker. Discharge plan: Return to [facility] in the care of Dr. Hurt Impression and plan of care have been directed as dictated by the signing physician. Michelle Casillas nurse practitioner acting as scribe for signing physician. Patient Condition at Discharge: Good Plan - Discharge Summary Discharge Rx Participant: No New Discharge Prescriptions: New Clindamycin HCl [Cleocin] 600 mg PO Q8H #42 cap Hydrocortisone Cream [Hydrocortisone 1% Cream] 1 applic TOPICAL TID PRN applic PRN Reason: Itching Melatonin 5 mg PO HS tablet Continue lamoTRIgine [LaMICtal] 300 mg PO QAM lamoTRIgine [LaMICtal] 350 mg PO HS Metoprolol Succinate [Toprol XL] 25 mg PO DAILY Polyethylene Glycol 3350 [Miralax] 17 gm PO DAILY Aspirin 81 mg PO DAILY #30 chew Multivitamin,Therapeutic [Thera] 1 tab PO DAILY Ipratropium-Albuterol Nebulize [Duoneb 0.5 mg-3 mg/3 ml Soln] 3 ml INHALATION RT-Q6H PRN PRN Reason: Shortness Of Breath Finasteride [Proscar] 5 mg PO HS Docusate [Colace] 100 mg PO DAILY Loratadine [Claritin] 10 mg PO DAILY Calcium Carbonate/Vitamin D3 [Calcium 500-Vit D3 200 Tablet] 1 tab PO HS traZODone HCL 50 mg PO HS Lactose-Reduced Food [Ensure Plus] 1 can PO TID Magnesium Hydroxide [Milk of Magnesia] 2,400 mg PO DAILY PRN PRN Reason: Constipation Amino Acids/Protein Hydrolys [Pro-Stat Supplement] 30 ml PO BID rOPINIRole HCL [Requip] 0.5 mg PO HS Ferrous Sulfate [Iron (65 MG Elemental)] 325 mg PO BID Mirtazapine [Remeron] 7.5 mg PO W/SUPPER HYDROcodone/APAP 5-325MG [[place] 5-325] 1 tab PO Q12H PRN #60 tab PRN Reason: Pain Discontinued Sulfamethox-Tmp 800-160Mg [Bactrim DS 800-160 mg] 1 tab PO Q12HR Discharge Medication List Metoprolol Succinate [Toprol XL] 25 mg PO DAILY 09/10/14 [History] lamoTRIgine [LaMICtal] 300 mg PO QAM 09/10/14 [History] lamoTRIgine [LaMICtal] 350 mg PO HS 09/10/14 [History] Polyethylene Glycol 3350 [Miralax] 17 gm PO DAILY 09/24/16 [History] Aspirin 81 mg PO DAILY #30 chew 10/05/16 [Rx] Calcium Carbonate/Vitamin D3 [Calcium 500-Vit D3 200 Tablet] 1 tab PO HS [History] Docusate [Colace] 100 mg PO DAILY 07/14/17 [History] Finasteride [Proscar] 5 mg PO HS 07/14/17 [History] Ipratropium-Albuterol Nebulize [Duoneb 0.5 mg-3 mg/3 ml Soln] 3 ml INHALATION RT -Q6H PRN 07/14/17 [History] Loratadine [Claritin] 10 mg PO DAILY 07/14/17 [History] Multivitamin,Therapeutic [Thera] 1 tab PO DAILY 07/14/17 [History] Amino Acids/Protein Hydrolys [Pro-Stat Supplement] 30 ml PO BID 10/27/17 [ History] Ferrous Sulfate [Iron (65 MG Elemental)] 325 mg PO BID 10/27/17 [History] Lactose-Reduced Food [Ensure Plus] 1 can PO TID 10/27/17 [History] Magnesium Hydroxide [Milk of Magnesia] 2,400 mg PO DAILY PRN 10/27/17 [History] Mirtazapine [Remeron] 7.5 mg PO W/SUPPER 10/27/17 [History] rOPINIRole HCL [Requip] 0.5 mg PO HS 10/27/17 [History] traZODone HCL 50 mg PO HS 10/27/17 [History] Clindamycin HCl [Cleocin] 600 mg PO Q8H #42 cap 10/29/17 [Rx] HYDROcodone/APAP 5-325MG [[place] 5-325] 1 tab PO Q12H PRN #60 tab 10/29/17 [Rx] Hydrocortisone Cream [Hydrocortisone 1% Cream] 1 applic TOPICAL TID PRN applic 10/29/17 [Rx] Melatonin 5 mg PO HS tablet 10/29/17 [Rx] Follow up Appointment(s)/Referral(s): Joshua Foreman MD [STAFF PHYSICIAN] - 1-2 days Patient Instructions/Handouts: Aspiration Pneumonia (DC) Activity/Diet/Wound Care/Special Instructions: Change positions every 2 hours while awake HOB elevated, 1:1 feed, aspiration precautions. DNR code status
[2017-10-29] MEDS: SODIUM CHLORIDE 0.9% 1,000 ML IV SCH (18:41)
== END 2017-10-29 19:31 | DRG 177 ==
LOC: EC 13:59 → 4MS4W 17:21
PROVIDERS: ADMIT Family Medicine; ATTEND Family Medicine
DX: J69.0 Pneumonitis due to inhalation of food and vomit (principal); J96.01 Acute respiratory failure with hypoxia; F72 Severe intellectual disabilities; G40.909 Epilepsy, unspecified, not intractable, without status epilepticus; I48.91 Unspecified atrial fibrillation; G80.9 Cerebral palsy, unspecified; F41.9 Anxiety disorder, unspecified; F43.10 Post-traumatic stress disorder, unspecified; R53.81 Other malaise; N40.0 Benign prostatic hyperplasia without lower urinary tract symptoms; H54.40 Blindness, one eye, unspecified eye; M41.9 Scoliosis, unspecified; M19.90 Unspecified osteoarthritis, unspecified site; D64.9 Anemia, unspecified; I11.0 Hypertensive heart disease with heart failure; I50.9 Heart failure, unspecified; I27.20 Pulmonary hypertension, unspecified; J45.909 Unspecified asthma, uncomplicated; M62.49 Contracture of muscle, multiple sites; K44.9 Diaphragmatic hernia without obstruction or gangrene; Z99.3 Dependence on wheelchair; Z86.14 Personal history of Methicillin resistant Staphylococcus aureus infection; Z87.440 Personal history of urinary (tract) infections; Z95.0 Presence of cardiac pacemaker; Z79.82 Long term (current) use of aspirin; Z79.899 Other long term (current) drug therapy; Z88.7 Allergy status to serum and vaccine; Z88.8 Allergy status to other drugs, medicaments and biological substances; Z88.0 Allergy status to penicillin
CPT/HCPCS: 36415; 71045; 71046; 80053; 82550; 82553; 83735; 83880; 84484; 85025; 85610; 85730; 87040; 93005; 96360; 96361; 99285

== ENCOUNTER 2017-11-25 18:46 | Emergency (ER) | payer MEDICARE, OTHER ==
[2017-11-25 18:55] VITALS: RESP 18
[2017-11-25 19:04] VITALS: PULSE 70
--- NOTE | 2017-11-25 19:04 | ED ---
General Adult HPI - General Chief complaint: Upper Respiratory Infection Stated complaint: cough Time Seen by Provider: 11/25/17 18:50 Source: EMS Mode of arrival: EMS Limitations: no limitations - History of Present Illness Initial comments: Nael Abrams is an 82-year-old male with past medical history of severe mental delay as to the emergency department today from a halfway after an episode of choking while eating applesauce. [facility] workers advised the patient's guardian as well as EMS that he was eating applesauce when he began coughing, they then noted that his fingertips appeared blue so they called 911. EMS reports that upon their arrival patient was resting comfortably. They did note that the air conditioning was on in the halfway and that it was very cold, the approximate that it was 65, they did note that the patient had very cold fingers and they were unable to obtain a good waveform for pulse oximetry. Patient was transported to the ER for further evaluation. Patient's legal guardian at bedside states that the patient lived with her for approximately 15 years before being put in a halfway. She states that he does not do well receiving medical care as he gets very anxious. She was called and advised that he had a coughing episode and they were concerned that he may have aspirated so they sent him to the hospital. - Related Data Home Medications Medication Instructions Recorded Confirmed Metoprolol Succinate [Toprol XL] 25 mg PO DAILY 09/10/14 10/27/17 lamoTRIgine [LaMICtal] 300 mg PO [facility] 09/10/14 10/27/17 lamoTRIgine [LaMICtal] 350 mg PO HS 09/10/14 10/27/17 Polyethylene Glycol 3350 [Miralax] 17 gm PO DAILY 09/24/16 10/27/17 Calcium Carbonate/Vitamin D3 1 tab PO HS 07/14/17 10/27/17 [Calcium 500-Vit D3 200 Tablet] Docusate [Colace] 100 mg PO DAILY 07/14/17 10/27/17 Finasteride [Proscar] 5 mg PO HS 07/14/17 10/27/17 Ipratropium-Albuterol Nebulize 3 ml INHALATION RT-Q6H PRN 07/14/17 10/27/17 [Duoneb 0.5 mg-3 mg/3 ml Soln] Loratadine [Claritin] 10 mg PO DAILY 07/14/17 10/27/17 Multivitamin,Therapeutic [Thera] 1 tab PO DAILY 07/14/17 10/27/17 Amino Acids/Protein Hydrolys 30 ml PO BID 10/27/17 10/27/17 [Pro-Stat Supplement] Ferrous Sulfate [Iron (65 MG 325 mg PO BID 10/27/17 10/27/17 Elemental)] Lactose-Reduced Food [Ensure Plus] 1 can PO TID 10/27/17 10/27/17 Magnesium Hydroxide [Milk of 2,400 mg PO DAILY PRN 10/27/17 10/27/17 Magnesia] Mirtazapine [Remeron] 7.5 mg PO W/SUPPER 10/27/17 10/27/17 rOPINIRole HCL [Requip] 0.5 mg PO HS 10/27/17 10/27/17 traZODone HCL 50 mg PO HS 10/27/17 10/27/17 Previous Rx's Medication Instructions Recorded Aspirin 81 mg PO DAILY #30 chew 10/05/16 Clindamycin HCl [Cleocin] 600 mg PO Q8H #42 cap 10/29/17 HYDROcodone/APAP 5-325MG [[place] 1 tab PO Q12H PRN #60 tab 10/29/17 5-325] Hydrocortisone Cream 1 applic TOPICAL TID PRN applic 10/29/17 [Hydrocortisone 1% Cream] Melatonin 5 mg PO HS tablet 10/29/17 Allergies Allergy/AdvReac Type Severity Reaction Status Date / Time diphenhydramine HCl Allergy hyper and Verified 10/27/17 18:03 [From Benadryl] aggitated Influenza Virus Vaccines Allergy Confusion Verified 10/27/17 18:03 Penicillins AdvReac Unknown Verified 10/27/17 18:03 Review of Systems ROS Statement: Those systems with pertinent positive or pertinent negative responses have been documented in the HPI. ROS Other: All systems not noted in ROS Statement are negative. Limitations: ROS unobtainable due to patients medical condition Respiratory: Reports: cough Past Medical History Past Medical History: Atrial Fibrillation, Eye Disorder, Hypertension, Osteoarthritis (OA), Prostate Disorder, Seizure Disorder, Skin Disorder Additional Past Medical History / Comment(s): LAST SEIZURE 10 YEARS AGO, in wheelchair, speech difficult to understand-wearing depends, cerebral palsy- severe mentally handicapped-mentally about a 3 yr old, R leg deformity, BPH, COUGHS UP A LOT OF MUCOUS, kyphosis, blind in rt. eye, hiatal hernia, frequent sinus infection, "starting to get bedsores" , has dry skin and scratches himself , recent UTI's, nurse Margarita from [facility] states pt can not swallow pills-must take crushed with "quite a bit of pudding" History of Any Multi-Drug Resistant Organisms: MRSA Date of last positivie culture/infection: 03/21/17 MDRO Source:: nose/eye Past Surgical History: Hernia Repair, Pacemaker Additional Past Surgical History / Comment(s): L cataract surery , oral surgery , inguinal hernia repair. Past Anesthesia/Blood Transfusion Reactions: Previous Problems w/ Anesthesia Additional Past Anesthesia/Blood Transfusion Reaction / Comment(s): limted family history. Type of Cardiac Device: Permanent Pacemaker Device Placement Date:: 2003 inserted and 2015 battery changed Past Psychological History: Anxiety, PTSD Smoking Status: Never smoker Past Alcohol Use History: None Reported Past Drug Use History: None Reported - Past Family History Father History Unknown: Yes Mother Family Medical History: Cancer Additional Family Medical History / Comment(s): ?lung cancer. General Exam Limitations: no limitations General appearance: alert, in no apparent distress Head exam: Present: atraumatic, normocephalic Eye exam: Present: other (blind in right eye) ENT exam: Present: mucous membranes moist Respiratory exam: Present: decreased breath sounds (bilateral bases, severe kyphosis) Cardiovascular Exam: Present: regular rate, normal rhythm GI/Abdominal exam: Present: soft. Absent: distended, tenderness Rectal exam: Present: deferred (hands very cold, delayed cap refill, chronic right leg deformity) Back exam: Present: other (severe kyphosis) Neurological exam: Present: alert, other (answers to name, very difficult to understand speech - per guardian, patient is at baseline) Psychiatric exam: Present: agitated Skin exam: Present: other (cool to touch) Course Vital Signs 11/25/17 11/25/17 11/25/17 18:48 19:03 20:18 Temperature 98.3 F 98.2 F Pulse Rate 74 70 70 Respiratory 18 18 18 Rate Blood Pressure 156/98 149/98 149/87 O2 Sat by Pulse 95 95 95 Oximetry Medical Decision Making - Medical Decision Making The patient was seen and evaluated, history was obtained from EMS as well as the patient's guardian and medical record Patient apparently had an episode of coughing while eating applesauce at his halfway They were concerned that his fingertips appeared cyanotic, EMS reports the patient may have been hypothermic, as his hands are very very cold and it was very cold and the halfway Caregivers at bedside reports that the patient is at his baseline, he is somewhat agitated to be here because he does not like hospitals. He is otherwise acting like himself. He doesn't appear to be in any distress. He denies any pain when they asked him. I offered a thorough workup including IV and labs as well as imaging, however caregiver state that they would prefer a minimally invasive workup as this will be agitating to the patient and they would prefer just an x-ray to make sure he has not aspirated. We're only able to obtain a 1 view x-ray due to the patient's inability to cooperate with exam, however the x-ray appears improved compared to previous and there is no evidence of acute aspiration or pneumonia. These results were discussed with the caregivers who state that they do not wish for any further evaluation. They will prefer the patient be discharged back to his halfway. They will contact the halfway who can provide wheelchair transport for the patient. In that if the patient develops any fever, cough, appears to be short of breath or any new or concerning symptoms he should return to the ER for further evaluation. Caregivers expressed understanding and the patient was discharged back to his halfway. Disposition Clinical Impression: Cough Disposition: HOME SELF-CARE Condition: Good Instructions: Performing the Heimlich Maneuver (ED) Is patient prescribed a controlled substance at d/c from ED?: No Referrals: Lele Calderon MD [Primary Care Provider] - 1-2 days Time of Disposition: 20:11
--- NOTE | 2017-11-25 19:40 | XR ---
EXAMINATION: XR chest 1V DATE AND TIME: 11/25/2017 7:15 PM ORDERING PROVIDER: Osiris Urbano DO CLINICAL INDICATION: Coughing spell today - while eating applesauce. TECHNIQUE: RPO rotated frontal radiograph COMPARISON: 10/28/2017 DESCRIPTION: There is redemonstration of the overall baseline thoracic architectural distortion, and there is the added RPO obliquity of the radiograph - factors which prevent full visualization of the right lung pa renchyma. Notwithstanding, the lungs appear to be clear as seen. The pleural spaces appear to be negative. The cardiac silhouette is moderately enlarged, unchanged. The skeletal structures are negative for acute findings. The soft tissues are unremarkable for acute findings, intrathoracic stomach is again evident. IMPRESSION: NO DEFINITE ACUTE RADIOGRAPHIC PROCESS.
[2017-11-25 20:20] VITALS: BP 149/87; TEMP 98.2
== END 2017-11-25 20:36 | disposition home or self-care (01) ==
LOC: EC 18:46
DX: R05 Cough (principal); R45.1 Restlessness and agitation; H54.61 Unqualified visual loss, right eye, normal vision left eye; M40.209 Unspecified kyphosis, site unspecified; R20.8 Other disturbances of skin sensation; I10 Essential (primary) hypertension; G40.909 Epilepsy, unspecified, not intractable, without status epilepticus; F41.9 Anxiety disorder, unspecified; Z79.899 Other long term (current) drug therapy; Z88.0 Allergy status to penicillin; Z88.7 Allergy status to serum and vaccine; Z88.8 Allergy status to other drugs, medicaments and biological substances; Z86.14 Personal history of Methicillin resistant Staphylococcus aureus infection; Z80.1 Family history of malignant neoplasm of trachea, bronchus and lung
CPT/HCPCS: 71045; 99283

== ENCOUNTER 2018-01-08 15:15 | Inpatient (IN) | payer MEDICARE, OTHER ==
[2018-01-08] MEDS ORDERED: SODIUM CHLORIDE 0.9% 500 ML IV ONE (16:35)
--- NOTE | 2018-01-08 16:38 | ED ---
General Adult HPI - General Chief complaint: Recheck/Abnormal Lab/Rx Stated complaint: dehydrated/pain Source: Caregiver Mode of arrival: wheelchair Limitations: altered mental status, physical limitation - History of Present Illness Initial comments: Dictation was produced using [employer] dictation software. please excuse any grammatical, word or spelling errors. Chief Complaint: 82-year-old male presents from the assisted for altered mental status, melanotic stool and History of Present Illness: Harry is a 82-year-old male past medical history of mental debility/cerebral palsy, age of fibrillation and hypertension presents with coffee-ground stool since 3 days ago and cloudy urine. Patient unable to provide HPI at this time secondary to mental status. The report that patient has been denying his by mouth medications recently. Patient is accompanied by assisted staff and guardians. They note that patient has multiple issues with urinary tract infections. Unable to obtain ROS secondary to mental status. - Related Data Home Medications Medication Instructions Recorded Confirmed Metoprolol Succinate [Toprol XL] 25 mg PO DAILY 09/10/14 01/08/18 lamoTRIgine [LaMICtal] 300 mg PO QAM 09/10/14 01/08/18 lamoTRIgine [LaMICtal] 350 mg PO HS 09/10/14 01/08/18 Polyethylene Glycol 3350 [Miralax] 17 gm PO DAILY 09/24/16 01/08/18 Docusate [Colace] 100 mg PO DAILY 07/14/17 01/08/18 Finasteride [Proscar] 5 mg PO HS@2100 07/14/17 01/08/18 Ipratropium-Albuterol Nebulize 3 ml INHALATION RT-Q6H PRN 07/14/17 01/08/18 [Duoneb 0.5 mg-3 mg/3 ml Soln] Loratadine [Claritin] 10 mg PO DAILY 07/14/17 01/08/18 Multivitamin,Therapeutic [Thera] 1 tab PO DAILY 07/14/17 01/08/18 Amino Acids/Protein Hydrolys 30 ml PO BID 10/27/17 01/08/18 [Pro-Stat Supplement] Ferrous Sulfate [Iron (65 MG 325 mg PO BID 10/27/17 01/08/18 Elemental)] Magnesium Hydroxide [Milk of 2,400 mg PO DAILY PRN 10/27/17 01/08/18 Magnesia] Mirtazapine [Remeron] 7.5 mg PO W/SUPPER 10/27/17 01/08/18 rOPINIRole HCL [Requip] 0.5 mg PO HS 10/27/17 01/08/18 traZODone HCL 50 mg PO HS 10/27/17 01/08/18 Ammonium Lactate Lotion 1 applic TOPICAL HS@2100 01/08/18 01/08/18 [Lac-Hydrin 12% Lotion] HYDROcodone/APAP 5-325MG [[place] 1 tab PO Q4H PRN 01/08/18 01/08/18 5-325] Loperamide [Imodium] 4 mg PO QID PRN 01/08/18 01/08/18 Melatonin 5 mg PO HS@209901/08/18 01/08/18 Menthol-Zinc Oxide Oint [Risamine 1 applic TOPICAL BID 01/08/18 01/08/18 Oint] Oyster Shell W/Vit D 1 tab PO DAILY 01/08/18 01/08/18 Ranitidine HCl [Zantac] 150 mg PO BID 01/08/18 01/08/18 Previous Rx's Medication Instructions Recorded Aspirin 81 mg PO DAILY #30 chew 10/05/16 Hydrocortisone Cream 1 applic TOPICAL TID PRN applic 10/29/17 [Hydrocortisone 1% Cream] Allergies Allergy/AdvReac Type Severity Reaction Status Date / Time diphenhydramine HCl Allergy hyper and Verified 01/08/18 17:31 [From Benadryl] aggitated Influenza Virus Vaccines Allergy Confusion Verified 01/08/18 17:31 Penicillins AdvReac Unknown Verified 01/08/18 17:31 Review of Systems ROS Statement: Those systems with pertinent positive or pertinent negative responses have been documented in the HPI. ROS Other: All systems not noted in ROS Statement are negative. 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 Past Anesthesia/Blood Transfusion Reactions: Previous Problems w/ Anesthesia Additional Past Anesthesia/Blood Transfusion Reaction / Comment(s): limted family history. Type of Cardiac Device: Permanent Pacemaker Device Placement Date:: 2003 inserted and 2015 battery changed Past Psychological History: Anxiety, Depression, PTSD Smoking Status: Never smoker Past Alcohol Use History: None Reported Past Drug Use History: None Reported - Past Family History Father History Unknown: Yes Mother Family Medical History: Cancer Additional Family Medical History / Comment(s): ?lung cancer. General Exam Limitations: altered mental status, physical limitation Course Vital Signs 01/08/18 01/08/18 01/08/18 15:50 17:17 18:21 Temperature 97.9 F 97.4 F L Pulse Rate 77 82 63 Respiratory 20 18 18 Rate Blood Pressure 146/87 143/65 O2 Sat by Pulse 97 98 95 Oximetry Medical Decision Making - Medical Decision Making Patient is a 82-year-old male with multiple comorbidities and frequent urinary tract infections presents with purulent urine and GI bleed. Bloody stools were noted by assisted staff. Vital signs upon arrival shows findings within acceptable limits. Laboratory evaluation obtained. Hemoglobin stable at 12.6. Rest of CBC unremarkable. Metabolic panel shows sodium 1949. Mild elevation in BUN of 40. Patient appeared dehydrated on physical examination. Patient given intravenous fluids. Urinalysis obtained showing greater than 182 white blood cells and many bacteria. Gross evaluation of urine specimen shows purulent urine consistent with urinary tract infection. At this point doubt sepsis. Patient covered 4, located UTI. He is given fluoroquinolones. Patient be admitted to hospitalist group for further care. Computed tomography scan of the head obtained showing no acute processes. Chest x-ray shows persistent right infiltrate that is improved since last examination. No click suspicion of pneumonia at this time given that family did not notice any chest pain or coughing. - Lab Data Result diagrams: 01/08/18 16:45 01/08/18 16:45 Lab Results 01/08/18 01/08/18 01/08/18 Range/Units 16:45 16:45 16:45 WBC 8.9 (3.8-10.6) k/uL RBC 4.18 L (4.30-5.90) m/uL Hgb 12.6 L (13.0-17.5) gm/dL Hct 39.7 (39.0-53.0) % MCV 95.0 (80.0-100.0) fL MCH 30.1 (25.0-35.0) pg MCHC 31.7 (31.0-37.0) g/dL RDW 14.9 (11.5-15.5) % Plt Count 288 (150-450) k/uL Neutrophils % 67 % Lymphocytes % 24 % Monocytes % 6 % Eosinophils % 1 % Basophils % 1 % Neutrophils # 5.9 (1.3-7.7) k/uL Lymphocytes # 2.2 (1.0-4.8) k/uL Monocytes # 0.5 (0-1.0) k/uL Eosinophils # 0.1 (0-0.7) k/uL Basophils # 0.1 (0-0.2) k/uL Hypochromasia Slight PT (9.0-12.0) sec INR (<1.2) APTT (22.0-30.0) sec Sodium (137-145) mmol/L Potassium (3.5-5.1) mmol/L Chloride (98-107) mmol/L Carbon Dioxide (22-30) mmol/L Anion Gap mmol/L BUN (9-20) mg/dL Creatinine (0.66-1.25) mg/dL Est GFR (CKD-EPI)AfAm (>60 ml/min/1.73 sqM) Est GFR (CKD-EPI)NonAf (>60 ml/min/1.73 sqM) Glucose (74-99) mg/dL Calcium (8.4-10.2) mg/dL Total Bilirubin (0.2-1.3) mg/dL AST (17-59) U/L ALT (21-72) U/L Alkaline Phosphatase (38-126) U/L Ammonia 13 (<30) umol/L Total Creatine Kinase 103 (55-170) U/L CK-MB (CK-2) 3.1 H* (0.0-2.4) ng/mL CK-MB (CK-2) Rel Index 3.0 Troponin I <0.012 (0.000-0.034) ng/mL Total Protein (6.3-8.2) g/dL Albumin (3.5-5.0) g/dL Urine Color Urine Appearance (Clear) Urine pH (5.0-8.0) Ur Specific [place] (1.001-1.035) Urine Protein (Negative) Urine Glucose (UA) (Negative) Urine Ketones (Negative) Urine Blood (Negative) Urine Nitrite (Negative) Urine Bilirubin (Negative) Urine Urobilinogen (<2.0) mg/dL Ur Leukocyte Esterase (Negative) Urine RBC (0-5) /hpf Urine WBC (0-5) /hpf Urine Bacteria (None) /hpf Urine Mucus (None) /hpf Stool Occult Blood (Negative) Urine Opiates Screen (NotDetected) Ur Oxycodone Screen (NotDetected) Urine Methadone Screen (NotDetected) Ur Propoxyphene Screen (NotDetected) Ur Barbiturates Screen (NotDetected) U Tricyclic Antidepress (NotDetected) Ur Phencyclidine Scrn (NotDetected) Ur Amphetamines Screen (NotDetected) U Methamphetamines Scrn (NotDetected) U Benzodiazepines Scrn (NotDetected) Urine Cocaine Screen (NotDetected) U Marijuana (THC) Screen (NotDetected) 01/08/18 01/08/18 01/08/18 Range/Units 16:45 16:45 16:45 WBC (3.8-10.6) k/uL RBC (4.30-5.90) m/uL Hgb (13.0-17.5) gm/dL Hct (39.0-53.0) % MCV (80.0-100.0) fL MCH (25.0-35.0) pg MCHC (31.0-37.0) g/dL RDW (11.5-15.5) % Plt Count (150-450) k/uL Neutrophils % % Lymphocytes % % Monocytes % % Eosinophils % % Basophils % % Neutrophils # (1.3-7.7) k/uL Lymphocytes # (1.0-4.8) k/uL Monocytes # (0-1.0) k/uL Eosinophils # (0-0.7) k/uL Basophils # (0-0.2) k/uL Hypochromasia PT 10.1 (9.0-12.0) sec INR 1.0 (<1.2) APTT 30.6 H (22.0-30.0) sec Sodium 149 H (137-145) mmol/L Potassium 4.2 (3.5-5.1) mmol/L Chloride 111 H (98-107) mmol/L Carbon Dioxide 30 (22-30) mmol/L Anion Gap 8 mmol/L BUN 40 H (9-20) mg/dL Creatinine 0.70 (0.66-1.25) mg/dL Est GFR (CKD-EPI)AfAm >90 (>60 ml/min/1.73 sqM) Est GFR (CKD-EPI)NonAf 87 (>60 ml/min/1.73 sqM) Glucose 96 (74-99) mg/dL Calcium 9.9 (8.4-10.2) mg/dL Total Bilirubin 0.3 (0.2-1.3) mg/dL AST 30 (17-59) U/L ALT 31 (21-72) U/L Alkaline Phosphatase 95 (38-126) U/L Ammonia (<30) umol/L Total Creatine Kinase (55-170) U/L CK-MB (CK-2) (0.0-2.4) ng/mL CK-MB (CK-2) Rel Index Troponin I (0.000-0.034) ng/mL Total Protein 6.3 (6.3-8.2) g/dL Albumin 3.6 (3.5-5.0) g/dL Urine Color Yellow Urine Appearance Cloudy (Clear) Urine pH 6.0 (5.0-8.0) Ur Specific [place] 1.019 (1.001-1.035) Urine Protein 1+ H (Negative) Urine Glucose (UA) Negative (Negative) Urine Ketones Negative (Negative) Urine Blood Small H (Negative) Urine Nitrite Positive (Negative) Urine Bilirubin Negative (Negative) Urine Urobilinogen <2.0 (<2.0) mg/dL Ur Leukocyte Esterase Large H (Negative) Urine RBC 10 H (0-5) /hpf Urine WBC >182 H (0-5) /hpf Urine Bacteria Many H (None) /hpf Urine Mucus Rare H (None) /hpf Stool Occult Blood (Negative) Urine Opiates Screen Detected H (NotDetected) Ur Oxycodone Screen Not Detected (NotDetected) Urine Methadone Screen Not Detected (NotDetected) Ur Propoxyphene Screen Not Detected (NotDetected) Ur Barbiturates Screen Not Detected (NotDetected) U Tricyclic Antidepress Not Detected (NotDetected) Ur Phencyclidine Scrn Not Detected (NotDetected) Ur Amphetamines Screen Not Detected (NotDetected) U Methamphetamines Scrn Not Detected (NotDetected) U Benzodiazepines Scrn Not Detected (NotDetected) Urine Cocaine Screen Not Detected (NotDetected) U Marijuana (THC) Screen Not Detected (NotDetected) 01/08/18 Range/Units 17:07 WBC (3.8-10.6) k/uL RBC (4.30-5.90) m/uL Hgb (13.0-17.5) gm/dL Hct (39.0-53.0) % MCV (80.0-100.0) fL MCH (25.0-35.0) pg MCHC (31.0-37.0) g/dL RDW (11.5-15.5) % Plt Count (150-450) k/uL Neutrophils % % Lymphocytes % % Monocytes % % Eosinophils % % Basophils % % Neutrophils # (1.3-7.7) k/uL Lymphocytes # (1.0-4.8) k/uL Monocytes # (0-1.0) k/uL Eosinophils # (0-0.7) k/uL Basophils # (0-0.2) k/uL Hypochromasia PT (9.0-12.0) sec INR (<1.2) APTT (22.0-30.0) sec Sodium (137-145) mmol/L Potassium (3.5-5.1) mmol/L Chloride (98-107) mmol/L Carbon Dioxide (22-30) mmol/L Anion Gap mmol/L BUN (9-20) mg/dL Creatinine (0.66-1.25) mg/dL Est GFR (CKD-EPI)AfAm (>60 ml/min/1.73 sqM) Est GFR (CKD-EPI)NonAf (>60 ml/min/1.73 sqM) Glucose (74-99) mg/dL Calcium (8.4-10.2) mg/dL Total Bilirubin (0.2-1.3) mg/dL AST (17-59) U/L ALT (21-72) U/L Alkaline Phosphatase (38-126) U/L Ammonia (<30) umol/L Total Creatine Kinase (55-170) U/L CK-MB (CK-2) (0.0-2.4) ng/mL CK-MB (CK-2) Rel Index Troponin I (0.000-0.034) ng/mL Total Protein (6.3-8.2) g/dL Albumin (3.5-5.0) g/dL Urine Color Urine Appearance (Clear) Urine pH (5.0-8.0) Ur Specific [place] (1.001-1.035) Urine Protein (Negative) Urine Glucose (UA) (Negative) Urine Ketones (Negative) Urine Blood (Negative) Urine Nitrite (Negative) Urine Bilirubin (Negative) Urine Urobilinogen (<2.0) mg/dL Ur Leukocyte Esterase (Negative) Urine RBC (0-5) /hpf Urine WBC (0-5) /hpf Urine Bacteria (None) /hpf Urine Mucus (None) /hpf Stool Occult Blood Negative (Negative) Urine Opiates Screen (NotDetected) Ur Oxycodone Screen (NotDetected) Urine Methadone Screen (NotDetected) Ur Propoxyphene Screen (NotDetected) Ur Barbiturates Screen (NotDetected) U Tricyclic Antidepress (NotDetected) Ur Phencyclidine Scrn (NotDetected) Ur Amphetamines Screen (NotDetected) U Methamphetamines Scrn (NotDetected) U Benzodiazepines Scrn (NotDetected) Urine Cocaine Screen (NotDetected) U Marijuana (THC) Screen (NotDetected) Disposition Clinical Impression: UTI (urinary tract infection), GI bleed Disposition: ADMITTED IP TO THIS HOSP Condition: Fair Referrals: Lele Calderon MD [Primary Care Provider] - 1-2 days Decision Time: 18:50
[2018-01-08] MEDS ORDERED: PANTOPRAZOLE 40 MG/10 ML VIAL IVP STA (17:10)
[2018-01-08 17:11] LABS: Basophils # (A) 0.1 k/uL (0-0.2); Basophils % (A) 1 %; Eosinophils # (A) 0.1 k/uL (0-0.7); Eosinophils % (A) 1 %; HCT 39.7 % (39.0-53.0); HGB 12.6 gm/dL (13.0-17.5); Hypochromasia Slight; Lymphocytes # (A) 2.2 k/uL (1.0-4.8); Lymphocytes % (A) 24 %; MCH 30.1 pg (25.0-35.0); MCHC 31.7 g/dL (31.0-37.0); Monocytes # (A) 0.5 k/uL (0-1.0); Monocytes % (A) 6 %; Neutrophils # (A) 5.9 k/uL (1.3-7.7); Neutrophils % (A) 67 %; Platelet Count 288 k/uL (150-450); RBC 4.18 m/uL (4.30-5.90); RDW 14.9 % (11.5-15.5); WBC 8.9 k/uL (3.8-10.6)
[2018-01-08 17:18] LABS: Appearance,Urine Cloudy (Clear); Bacteria,Urine Many /hpf; Bilirubin,Urine Negative (Negative); Blood,Urine Small (Negative); Color,Urine Yellow; Glucose,Urine (UA) Negative (Negative); Ketones,Urine Negative (Negative); Leukocyte Esterase,Urine Large (Negative); Mucus,Urine Rare /hpf; Nitrite,Urine Positive (Negative); Protein,Urine 1+ (Negative); RBC,Urine 10 /hpf (0-5); Specific Gravity,Urine 1.019 (1.001-1.035); Urobilinogen,Urine <2.0 mg/dL (<2.0); WBC,Urine >182 /hpf (0-5)
[2018-01-08 17:19] LABS: Partial Thromboplastin Time 30.6 sec (22.0-30.0); Prothrombin Time 10.1 sec (9.0-12.0)
[2018-01-08 17:21] LABS: ALT 31 U/L (21-72); AST 30 U/L (17-59); Albumin 3.6 g/dL (3.5-5.0); Alkaline Phosphatase 95 U/L (38-126); Anion Gap 8 mmol/L; Blood Urea Nitrogen 40 mg/dL (9-20); Calcium 9.9 mg/dL (8.4-10.2); Carbon Dioxide 30 mmol/L (22-30); Chloride 111 mmol/L (98-107); Glucose 96 mg/dL (74-99); Potassium 4.2 mmol/L (3.5-5.1); Sodium 149 mmol/L (137-145); Total Bilirubin 0.3 mg/dL (0.2-1.3); Total Protein 6.3 g/dL (6.3-8.2)
[2018-01-08 17:22] LABS: Amphetamine Screen,Urine Not Detected (NotDetected); Barbiturate Screen,Urine Not Detected (NotDetected); Benzodiazepines Screen,Urine Not Detected (NotDetected); Cocaine Screen,Urine Not Detected (NotDetected); Methadone Screen, Urine Not Detected (NotDetected); Opiate Screen,Urine Detected (NotDetected); Oxycodone Screen, Urine Not Detected (NotDetected); Phencyclidine Screen,Urine Not Detected (NotDetected); Tricyclic Antidepressant,Urine Not Detected (NotDetected); Urn Cannabinoid Scrn Not Detected (NotDetected)
[2018-01-08] MEDS ORDERED: LORazepam 2 MG/ML INJ IV STA (17:25)
[2018-01-08 17:33] LABS: Creatine Kinase 103 U/L (55-170)
--- NOTE | 2018-01-08 17:40 | XR ---
EXAMINATION TYPE: XR chest 1V portable DATE OF EXAM: 01/08/2018 COMPARISON: 11/25/2017 HISTORY: Altered mental status. Unresponsive. TECHNIQUE: Single frontal view of the chest is obtained. FINDINGS: There is a large hiatal hernia. Thoracic aorta is atheromatous. There is right axillary pa cemaker with the lead tips in the right ventricle. There is no heart failure. There is some elevation of the right diaphragm and blunting of right costophrenic angle. IMPRESSION: There is some infiltrate and atelectasis in the right lower lobe that is improved slight ly compared to old exam. No heart failure. Large hiatal hernia.
[2018-01-08 17:46] LABS: Troponin I <0.012 ng/mL (0.000-0.034)
[2018-01-08] MEDS ORDERED: LEVOFLOXACIN 500MG-D5W PMX 500 MG in DEXTROSE/WATER 1 100ML.BAG IVPB STA (17:46)
[2018-01-08 17:48] LABS: Creatine Kinase MB 3.1 ng/mL (0.0-2.4)
--- NOTE | 2018-01-08 17:57 | CT ---
EXAMINATION TYPE: CT brain wo con DATE OF EXAM: 01/08/2018 COMPARISON: 07/23/2017 HISTORY: Increased agitation. CT DLP: 1686 mGycm Automated exposure control for dose reduction was used. FINDINGS: There is diffuse cerebral cortical atrophy. There is no mass effect nor midline shift. There is no si gn of intracranial hemorrhage. The calvarium is intact. There is hypodensity in the periventricular w baljeet matter. IMPRESSION: CEREBRAL ATROPHY AND CHRONIC SMALL VESSEL ISCHEMIA. NO ACUTE INTRACRANIAL ABNORMALITY. THERE IS PROBA SOLEDAD SOME PROGRESSION OF WHITE MATTER DISEASE COMPARED TO OLD EXAM.
[2018-01-08] MEDS ORDERED: NALOXONE 0.4 MG/ML 1 ML VIAL IV PRN (18:44)
[2018-01-08] MEDS ORDERED: IPRATROPIUM-ALBUTEROL 3 ML NEB INHALATION PRN (18:45)
[2018-01-08] MEDS ORDERED: MAGNESIUM HYDROXIDE 2,400 MG/10 ML CUP PO PRN (20:54)
[2018-01-08] MEDS ORDERED: LOPERAMIDE 2 MG CAP PO PRN (20:54)
[2018-01-08] MEDS ORDERED: POLYETHYLENE GLYCOL 3350 17 GM POWD.PACK PO PRN (20:54)
[2018-01-08] MEDS ORDERED: HYDROCORTISONE 1% CREAM 30 GM TUBE TOPICAL PRN (20:54)
[2018-01-08] MEDS ORDERED: HYDROcodone/APAP 5-325MG 1 EACH TAB PO PRN (20:54)
[2018-01-08] MEDS ORDERED: DOCUSATE 100 MG CAP PO PRN (20:54)
[2018-01-08] MEDS ORDERED: SODIUM CHLORIDE 0.9% 1,000 ML IV SCH (21:00)
[2018-01-08] MEDS ORDERED: DEXTROSE 50%-WATER 50 ML SYRINGE IVP ONE (21:10)
[2018-01-08] MEDS ORDERED: DEXTROSE 50%-WATER 50 ML SYRINGE IVP STA (21:21)
[2018-01-08] MEDS: LORazepam 2 MG/ML INJ IV PRN (21:23)
[2018-01-08] MEDS: AZTREONAM 1 GM in SODIUM CHLORIDE 0.9% 50 ML IVPB SCH (21:27)
[2018-01-08 21:36] LABS: Glucose,Whole Blood 59 mg/dL (75-99)
[2018-01-08 21:36] LABS: Glucose,Whole Blood 183 mg/dL (75-99)
[2018-01-08] MEDS: MELATONIN 5 MG TABLET PO SCH (22:38)
[2018-01-08] MEDS: MIRTAZAPINE 15 MG TAB PO SCH (22:38)
[2018-01-08] MEDS: FERROUS SULFATE 325 MG TAB PO SCH (22:38)
[2018-01-08] MEDS: FINASTERIDE 5 MG TAB PO SCH (22:38)
[2018-01-08] MEDS: lamoTRIgine 100 MG TAB PO SCH (22:38)
[2018-01-08] MEDS: traZODone HCL 50 MG TAB PO SCH (22:38)
[2018-01-08] MEDS: MENTHOL-ZINC OXIDE OINT 113 GM TUBE TOPICAL SCH (22:41)
[2018-01-08] MEDS: PANTOPRAZOLE 40 MG/10 ML VIAL IVP SCH (22:41)
[2018-01-08] MEDS: AMMONIUM LACTATE 12% LOTION 225 GM BTL TOPICAL SCH (22:41)
[2018-01-09 04:35] LABS: Glucose,Whole Blood 82 mg/dL (75-99)
[2018-01-09] MEDS: LORazepam 2 MG/ML INJ IV PRN ×3 (04:56→18:10)
[2018-01-09 05:19] VITALS: BMI 17.9
[2018-01-09 06:50] LABS: Glucose,Whole Blood 80 mg/dL (75-99)
[2018-01-09] MEDS: AZTREONAM 1 GM in SODIUM CHLORIDE 0.9% 50 ML IVPB SCH ×3 (08:01→23:52)
[2018-01-09] MEDS: PANTOPRAZOLE 40 MG/10 ML VIAL IVP SCH ×2 (08:06→20:56)
[2018-01-09] MEDS: METOPROLOL SUCCINATE (ER) 25 MG TAB.ER.24H PO SCH (08:07)
[2018-01-09] MEDS: ASPIRIN 81 MG PO SCH (08:07)
[2018-01-09] MEDS: CALCIUM CARB-VIT D 500MG-200UN 1 EACH TAB PO SCH (08:07)
[2018-01-09] MEDS: LORATADINE 10 MG TAB PO SCH (08:07)
[2018-01-09] MEDS: FERROUS SULFATE 325 MG TAB PO SCH ×2 (08:07→20:40)
[2018-01-09] MEDS: lamoTRIgine 100 MG TAB PO SCH ×2 (08:07→20:40)
[2018-01-09] MEDS: MENTHOL-ZINC OXIDE OINT 113 GM TUBE TOPICAL SCH ×2 (08:11→20:57)
[2018-01-09] MEDS: MULTIVITAMINS, THERA 1 EACH TAB PO SCH (11:00)
--- NOTE | 2018-01-09 12:23 | P.CONS ---
History of Present Illness - Reason for Consult Consult date: 01/09/18 Possible GI bleed Requesting physician: Kerline Solorio - History of Present Illness 82-year-old gentleman history of cerebral palsy mentally handicapped institutionalized for most of his adult life 13-55, resident at a local assisted with an underlying history of large intrathoracic hiatal hernia with abdominal contents transverse colon confirmed per CT chest August 2016, CHF, pacemaker, A. fib, UTIs, seizures admitted with altered mental status and reports of melanotic stool from assisted care staff possible underlying UTI. Urine culture pending. History obtained from medical records and position staff patient is unable to provide history. senior care medications reviewed no anticoagulant medications with the exception of baby aspirin daily. Does not take GI prophylaxis. Since admission nursing reports no evidence of hematemesis hematochezia or melena. He is presently restrained agitated. Hemoccult stool negative. Hemoglobin 12.6. Previous hemoglobin in September was 12.4. INR 1.0. BUN 40. Creatinine 0.7. Chest x-ray demonstrated a large hiatal hernia. EGD January 2016 for evaluation of dysphagia reported large hiatal hernia with intrathoracic stomach mild antral gastritis. It's unclear whether or not patient has had a colonoscopy in the past. Review of Systems Unable to obtain information reviewed from medical records Constitutional: History of cerebral palsy mentally handicapped. Admitted with mental status changes. Denies fever, chills, sweats, weight gain, or loss. HEENT: Negative for migraines, blurred vision or loss, earaches, drainage, tinnitus, oral mucosal lesions, dysphagia, or odynophagia. Cardiac: History of atrial fibrillation. Hypertension. Pacemaker. Negative for chest pain, arrhythmias, or palpitation. Respiratory: Negative for shortness of breath, hemoptysis, cough, or sputum production. Gastrointestinal: See HPI for pertinent findings. Genitourinary: Negative for hematuria, urgency, frequency, polyuria, dysuria, or penile discharge. Musculoskeletal: Negative for muscle aches, swelling, arthritis, and arthralgias. Neurologic: History of seizures. Negative for stroke or TIA. Endocrine: Negative for thyroid problems. Skin: Negative for rash or itching. Psychiatric: History of anxiety depression and PTSD. Past Medical History Past Medical History: Atrial Fibrillation, Eye Disorder, GERD/Reflux, Hypertension, Osteoarthritis (OA), Prostate Disorder, Seizure Disorder, Skin Disorder Additional Past Medical History / Comment(s): Last seizure 10 years ago, wheelchair-bound, speech is difficult to understand, cerebral palsy (severely mentally handicapped), right leg deformity, BPH, kyphosis, coughs up a lot of mucous, right eye blind, hiatal hernia, frequent sinus infection, bedsores, dry skin and scratches himself, UTIs, takes pills crushed w/ lots of pudding, blindness. History of Any Multi-Drug Resistant Organisms: MRSA Year Discovered:: 03/21/17 MDRO Source:: Nose/eye Past Surgical History: Hernia Repair, Pacemaker Additional Past Surgical History / Comment(s): Left cataract surgery , oral surgery, inguinal hernia repair. Past Anesthesia/Blood Transfusion Reactions: Previous Problems w/ Anesthesia Additional Past Anesthesia/Blood Transfusion Reaction / Comm: Limted family history. Type of Cardiac Device: Permanent Pacemaker Device Placement Date:: 2003 inserted and 2015 battery changed Past Psychological History: Anxiety, Depression, PTSD Additional Psychological History / Comment(s): Needs anesthesia for CTs/ invasive testing-per ECF and Legal Guardian-pt would get combative., Pt was institutionalized for years-age [age]. He was in a straight jacket at times. He came to live with Thalia Pascual and her spouse after that. He has cerebral palsy and is mentally handicapped. He has the mentation of a 3 yrs old. He gets agitated with new experiences. Smoking Status: Never smoker Past Alcohol Use History: None Reported Past Drug Use History: None Reported - Past Family History Father History Unknown: Yes Mother Family Medical History: Cancer Additional Family Medical History / Comment(s): Lung cancer Medications and Allergies Home Medications Medication Instructions Recorded Confirmed Type Metoprolol Succinate [Toprol XL] 25 mg PO DAILY 09/10/14 01/08/18 History lamoTRIgine [LaMICtal] 300 mg PO QAM 09/10/14 01/08/18 History lamoTRIgine [LaMICtal] 350 mg PO HS 09/10/14 01/08/18 History Polyethylene Glycol 3350 [Miralax] 17 gm PO DAILY 09/24/16 01/08/18 History Aspirin 81 mg PO DAILY #30 chew 10/05/16 01/08/18 Rx Docusate [Colace] 100 mg PO DAILY 07/14/17 01/08/18 History Finasteride [Proscar] 5 mg PO HS@209907/14/17 01/08/18 History Ipratropium-Albuterol Nebulize 3 ml INHALATION RT-Q6H PRN 07/14/17 01/08/18 History [Duoneb 0.5 mg-3 mg/3 ml Soln] Loratadine [Claritin] 10 mg PO DAILY 07/14/17 01/08/18 History Multivitamin,Therapeutic [Thera] 1 tab PO DAILY 07/14/17 01/08/18 History Amino Acids/Protein Hydrolys 30 ml PO BID 10/27/17 01/08/18 History [Pro-Stat Supplement] Ferrous Sulfate [Iron (65 MG 325 mg PO BID 10/27/17 01/08/18 History Elemental)] Magnesium Hydroxide [Milk of 2,400 mg PO DAILY PRN 10/27/17 01/08/18 History Magnesia] Mirtazapine [Remeron] 7.5 mg PO W/SUPPER 10/27/17 01/08/18 History rOPINIRole HCL [Requip] 0.5 mg PO HS 10/27/17 01/08/18 History traZODone HCL 50 mg PO HS 10/27/17 01/08/18 History Hydrocortisone Cream 1 applic TOPICAL TID PRN applic 10/29/17 01/08/18 Rx [Hydrocortisone 1% Cream] Ammonium Lactate Lotion 1 applic TOPICAL HS@209901/08/18 01/08/18 History [Lac-Hydrin 12% Lotion] HYDROcodone/APAP 5-325MG [[place] 1 tab PO Q4H PRN 01/08/18 01/08/18 History 5-325] Loperamide [Imodium] 4 mg PO QID PRN 01/08/18 01/08/18 History Melatonin 5 mg PO HS@209901/08/18 01/08/18 History Menthol-Zinc Oxide Oint [Risamine 1 applic TOPICAL BID 01/08/18 01/08/18 History Oint] Oyster Shell W/Vit D 1 tab PO DAILY 01/08/18 01/08/18 History Ranitidine HCl [Zantac] 150 mg PO BID 01/08/18 01/08/18 History Allergies Allergy/AdvReac Type Severity Reaction Status Date / Time diphenhydramine HCl Allergy hyper and Verified 01/08/18 17:31 [From Benadryl] aggitated Influenza Virus Vaccines Allergy Confusion Verified 01/08/18 17:31 Penicillins AdvReac Unknown Verified 01/08/18 17:31 Physical Exam Vitals: Vital Signs Temp Pulse Pulse Resp BP BP Pulse Ox 01/09/18 06:42 96.5 F L 84 16 156/94 95 01/08/18 23:00 97.1 F L 71 16 161/69 94 L 01/08/18 18:21 97.4 F L 63 18 143/65 95 01/08/18 17:17 82 18 146/87 98 01/08/18 15:50 97.9 F 77 20 97 Intake and Output 01/08/18 01/09/18 01/09/18 22:59 06:59 14:59 Intake Total 0 0 Output Total 350 600 Balance -350 -600 0 Intake: Oral 0 0 Output: Urine 350 600 Uretheral (Phillips) 350 Other: Voiding Method Indwelling Catheter Indwelling Catheter Weight 69.1 kg 50.5 kg 50.5 kg General appearance: The patient is awake restrained agitated distress. HET: Head is normocephalic and atraumatic. Pupils are equal and reactive. Oropharynx is clear without lesions. Neck: Supple without lymphadenopathy. Trachea midline. Heart: S1 S2. Regular rate and rhythm. Lungs: No crackles or wheezes are heard. Abdomen: Soft, nontender, nondistended with bowel sounds. No peritoneal signs. No palpable organomegaly or masses. Results CBC & Chem 7: 01/08/18 16:45 01/08/18 16:45 Labs: Abnormal Lab Results - Last 24 Hours (Table) 01/08/18 01/08/18 01/08/18 Range/Units 16:45 16:45 16:45 RBC 4.18 L (4.30-5.90) m/uL Hgb 12.6 L (13.0-17.5) gm/dL APTT (22.0-30.0) sec Sodium 149 H (137-145) mmol/L Chloride 111 H (98-107) mmol/L BUN 40 H (9-20) mg/dL POC Glucose (mg/dL) (75-99) mg/dL CK-MB (CK-2) 3.1 H* (0.0-2.4) ng/mL Urine Protein (Negative) Urine Blood (Negative) Ur Leukocyte Esterase (Negative) Urine RBC (0-5) /hpf Urine WBC (0-5) /hpf Urine Bacteria (None) /hpf Urine Mucus (None) /hpf Urine Opiates Screen (NotDetected) 01/08/18 01/08/18 01/08/18 Range/Units 16:45 16:45 21:07 RBC (4.30-5.90) m/uL Hgb (13.0-17.5) gm/dL APTT 30.6 H (22.0-30.0) sec Sodium (137-145) mmol/L Chloride (98-107) mmol/L BUN (9-20) mg/dL POC Glucose (mg/dL) 59 L (75-99) mg/dL CK-MB (CK-2) (0.0-2.4) ng/mL Urine Protein 1+ H (Negative) Urine Blood Small H (Negative) Ur Leukocyte Esterase Large H (Negative) Urine RBC 10 H (0-5) /hpf Urine WBC >182 H (0-5) /hpf Urine Bacteria Many H (None) /hpf Urine Mucus Rare H (None) /hpf Urine Opiates Screen Detected H (NotDetected) 01/08/18 Range/Units 21:34 RBC (4.30-5.90) m/uL Hgb (13.0-17.5) gm/dL APTT (22.0-30.0) sec Sodium (137-145) mmol/L Chloride (98-107) mmol/L BUN (9-20) mg/dL POC Glucose (mg/dL) 183 H (75-99) mg/dL CK-MB (CK-2) (0.0-2.4) ng/mL Urine Protein (Negative) Urine Blood (Negative) Ur Leukocyte Esterase (Negative) Urine RBC (0-5) /hpf Urine WBC (0-5) /hpf Urine Bacteria (None) /hpf Urine Mucus (None) /hpf Urine Opiates Screen (NotDetected) Microbiology - Last 24 Hours (Table) 01/08/18 16:45 Urine Culture - Preliminary Urine,Catheterized Chest x-ray: report reviewed (Dr. Hahn) Assessment and Plan (1) Hiatal hernia Narrative/Plan: 82-year-old gentleman presents with mental status changes possible UTI with reported melanotic stools from assisted with negative stool guaiac and hemoglobin of 12.7. He has a history of underlying large intrathoracic hiatal hernia supported per EGD in 2016 and radiographic imaging 2017. Possible peptic ulcer disease possible Shreyas erosions secondary to large hiatal hernia but no evidence of active GI bleeding at this time. Current Visit: Yes Status: Acute Code(s): K44.9 - DIAPHRAGMATIC HERNIA WITHOUT OBSTRUCTION OR GANGRENE SNOMED Code(s): 90829120 (2) Cerebral palsy Current Visit: No Status: Acute Code(s): G80.9 - CEREBRAL PALSY, UNSPECIFIED SNOMED Code(s): 133739726 Plan: 1. Continue to monitor CBC daily. Advised Protonix 40 mg IV daily. Case was discussed with attending at this time inpatient EGD is not planned but contingent on clinical course. Will follow closely with you. Thank you for this kind referral and the opportunity to participate in the care of your patient. This consultation was discussed with Dr. Hahn. The impression and plan of care have been directed as dictated.
[2018-01-09 12:25] LABS: Glucose,Whole Blood 75 mg/dL (75-99)
[2018-01-09] MEDS: DEXTROSE 5% IN WATER 1,000 ML IV SCH (14:47)
[2018-01-09] MEDS: MIRTAZAPINE 15 MG TAB PO SCH (15:35)
--- NOTE | 2018-01-09 16:45 | P.CN ---
Psychiatric Consult - . Consult date: 01/09/18 Consult:: 01/09/18 16:33 Identification: Patient is an 82-year-old male who was brought [facility] the [facility] due to altered mental status, history of UTIs and coffee- ground emesis. Reason for Consult: Severe agitation, nonverbal History of Present Illness: Patient's chart was reviewed, patient history is obtained completely from the chart as the patient is nonverbal and unable to provide any historical information. Patient has a history of cerebral palsy and developmental disorder in the chart states that he functions at the level of a 3-year-old. Patient has apparently been institutionalized since a young age. Patient has been currently living in a [facility] and recently has been refusing his medication. Patient also has a history of having urinary tract infections. Past Psychiatric History: Unclear psychiatric history patient is currently taking Remeron 7-1/2 mg daily, trazodone 50 mg at night and melatonin at bedtime. Past Medical/Surgical History: Patient has a history of atrial fibrillation, hypertension, seizure disorder and I disorder, kyphosis hiatal hernia, cerebral palsy, GERD, prostate disorder. Patient has had a hernia repair, cataract surgery Family History: Unknown Social History: Per the chart the patient has been institutionalized since a young age and currently is living in a [facility] and has a guardian. Patient is wheelchair-bound Mental status: Patient is lying in bed, eyes are closed, he has soft restraints on both upper extremities, protective boot around lower extremity. Patient did not respond to his name and was not able to answer any questions. Further mental status evaluation is unable to be performed. Patient was lying quietly, he was not struggling against his restraints. Assessment: Patient has a history of cerebral palsy per the record functions at the level of a 3-year-old and has been institutionalized since a young age. Patient has been living in a [facility] and does have a guardian. Patient was brought into the hospital due to an alteration in his mental status, refusal to take medications and concerns regarding recurrent urinary tract infections and coffee-ground emesis. Patient is in soft restraints on both upper extremities, no restraints on his lower extremities, is lying quietly in bed and not fighting against the restraints. Patient does not respond to his name and was not able to respond to any questions Diagnosis: Delirium secondary to multiple etiology, history of cerebral palsy and unknown developmental disorder Plan: Consultation was requested due to severe agitation and being nonverbal. Patient has been refusing oral medications while he has been in the hospital, he has received one dose of Ativan for agitation. When I went to examine the patient he was not fighting against his restraints nor was he agitated but the patient would not open his eyes nor would he respond to his name and was nonverbal and non-communicative. Patient most likely is agitated secondary to a delirium secondary to urinary tract infection. Would recommend using the benzodiazepines cautiously as they can worsen delirium. At this time the patient is not assaultive or combative and would not recommend the use of antipsychotic medication. Patient's mental status should clear once his infection is treated, it is unclear what this patient's baseline mental status is. 01/09/18 16:36 01/09/18 16:37 01/09/18 16:43
[2018-01-09 17:21] LABS: Glucose,Whole Blood 74 mg/dL (75-99)
[2018-01-09] MEDS: AMMONIUM LACTATE 12% LOTION 225 GM BTL TOPICAL SCH (20:40)
[2018-01-09] MEDS: FINASTERIDE 5 MG TAB PO SCH (20:40)
[2018-01-09] MEDS: MELATONIN 5 MG TABLET PO SCH (20:41)
[2018-01-09] MEDS: traZODone HCL 50 MG TAB PO SCH (20:41)
[2018-01-09 20:55] LABS: Glucose,Whole Blood 79 mg/dL (75-99)
--- NOTE | 2018-01-09 22:56 | P.HPIM ---
History of Present Illness H&P Date: 01/09/18 Chief Complaint: Altered mental status Patient is a 82-year-old male with a known history of cerebral palsy and mentally challenged. History of atrial fibrillation, hypertension, history of pacemaker placement, CHF, multiple UTIs, seizure disorder who is currently at residential on brought to the hospital with altered mental status. Patient also has history of large intrathoracic hiatal hernia with abdominal contents transverse colon as per CT chest in August 2016. Patient was also having coffee- ground emesis but otherwise patient cannot provide any history at this time. Patient was also found have urinary tract infection and was started on antibiotics in the form of aztreonam. Patient was also placed on Phillips catheter while in the ER. Most of the history was taken from the medical records as well as residential staff at bedside. Patient has been losing weight recently and is not eating very well as per residential. FOBT negative Hemoglobin 12.6 INR 1.0 Chest x-ray showed large hiatal hernia. Patient was initially a agitated and combative. Psychiatry was consulted as well for further evaluation. Review of Systems Complete review of systems could not be obtained from the patient Past Medical History Past Medical History: Atrial Fibrillation, Eye Disorder, GERD/Reflux, Hypertension, Osteoarthritis (OA), Prostate Disorder, Seizure Disorder, Skin Disorder Additional Past Medical History / Comment(s): Last seizure 10 years ago, wheelchair-bound, speech is difficult to understand, cerebral palsy (severely mentally handicapped), right leg deformity, BPH, kyphosis, coughs up a lot of mucous, right eye blind, hiatal hernia, frequent sinus infection, bedsores, dry skin and scratches himself, UTIs, takes pills crushed w/ lots of pudding, blindness. History of Any Multi-Drug Resistant Organisms: MRSA Date of last positivie culture/infection: 03/21/17 MDRO Source:: Nose/eye Past Surgical History: Hernia Repair, Pacemaker Additional Past Surgical History / Comment(s): Left cataract surgery , oral surgery, inguinal hernia repair. Past Anesthesia/Blood Transfusion Reactions: Previous Problems w/ Anesthesia Additional Past Anesthesia/Blood Transfusion Reaction / Comment(s): Limted family history. Type of Cardiac Device: Permanent Pacemaker Device Placement Date:: 2003 inserted and 2015 battery changed Past Psychological History: Anxiety, Depression, PTSD Additional Psychological History / Comment(s): Needs anesthesia for CTs/ invasive testing-per ECF and Legal Guardian-pt would get combative., Pt was institutionalized for years-age [age]. He was in a straight jacket at times. He came to live with Thalia Pascual and her spouse after that. He has cerebral palsy and is mentally handicapped. He has the mentation of a 3 yrs old. He gets agitated with new experiences. Smoking Status: Never smoker Past Alcohol Use History: None Reported Past Drug Use History: None Reported - Past Family History Father History Unknown: Yes Mother Family Medical History: Cancer Additional Family Medical History / Comment(s): Lung cancer Medications and Allergies Home Medications Medication Instructions Recorded Confirmed Type Metoprolol Succinate [Toprol XL] 25 mg PO DAILY 09/10/14 01/08/18 History lamoTRIgine [LaMICtal] 300 mg PO QAM 09/10/14 01/08/18 History lamoTRIgine [LaMICtal] 350 mg PO HS 09/10/14 01/08/18 History Polyethylene Glycol 3350 [Miralax] 17 gm PO DAILY 09/24/16 01/08/18 History Aspirin 81 mg PO DAILY #30 chew 10/05/16 01/08/18 Rx Docusate [Colace] 100 mg PO DAILY 07/14/17 01/08/18 History Finasteride [Proscar] 5 mg PO HS@2100 07/14/17 01/08/18 History Ipratropium-Albuterol Nebulize 3 ml INHALATION RT-Q6H PRN 07/14/17 01/08/18 History [Duoneb 0.5 mg-3 mg/3 ml Soln] Loratadine [Claritin] 10 mg PO DAILY 07/14/17 01/08/18 History Multivitamin,Therapeutic [Thera] 1 tab PO DAILY 07/14/17 01/08/18 History Amino Acids/Protein Hydrolys 30 ml PO BID 10/27/17 01/08/18 History [Pro-Stat Supplement] Ferrous Sulfate [Iron (65 MG 325 mg PO BID 10/27/17 01/08/18 History Elemental)] Magnesium Hydroxide [Milk of 2,400 mg PO DAILY PRN 10/27/17 01/08/18 History Magnesia] Mirtazapine [Remeron] 7.5 mg PO W/SUPPER 10/27/17 01/08/18 History rOPINIRole HCL [Requip] 0.5 mg PO HS 10/27/17 01/08/18 History traZODone HCL 50 mg PO HS 10/27/17 01/08/18 History Hydrocortisone Cream 1 applic TOPICAL TID PRN applic 10/29/17 01/08/18 Rx [Hydrocortisone 1% Cream] Ammonium Lactate Lotion 1 applic TOPICAL HS@209901/08/18 01/08/18 History [Lac-Hydrin 12% Lotion] HYDROcodone/APAP 5-325MG [[place] 1 tab PO Q4H PRN 01/08/18 01/08/18 History 5-325] Loperamide [Imodium] 4 mg PO QID PRN 01/08/18 01/08/18 History Melatonin 5 mg PO HS@209901/08/18 01/08/18 History Menthol-Zinc Oxide Oint [Risamine 1 applic TOPICAL BID 01/08/18 01/08/18 History Oint] Oyster Shell W/Vit D 1 tab PO DAILY 01/08/18 01/08/18 History Ranitidine HCl [Zantac] 150 mg PO BID 01/08/18 01/08/18 History Allergies Allergy/AdvReac Type Severity Reaction Status Date / Time diphenhydramine HCl Allergy hyper and Verified 01/08/18 17:31 [From Benadryl] aggitated Influenza Virus Vaccines Allergy Confusion Verified 01/08/18 17:31 Penicillins AdvReac Unknown Verified 01/08/18 17:31 Physical Exam Vitals: Vital Signs Temp Pulse Pulse Resp BP BP Pulse Ox 01/09/18 06:42 96.5 F L 84 16 156/94 95 01/08/18 23:00 97.1 F L 71 16 161/69 94 L 01/08/18 18:21 97.4 F L 63 18 143/65 95 01/08/18 17:17 82 18 146/87 98 01/08/18 15:50 97.9 F 77 20 97 Intake and Output 01/08/18 01/09/18 01/09/18 22:59 06:59 14:59 Intake Total 0 0 Output Total 350 600 Balance -350 -600 0 Intake: Oral 0 0 Output: Urine 350 600 Uretheral (Phillips) 350 Other: Voiding Method Indwelling Catheter Indwelling Catheter Weight 69.1 kg 50.5 kg 50.5 kg PHYSICAL EXAMINATION: Patient is lying in the bed comfortably, no acute distress, patient is currently drowsy and lethargic and could not provide any history HEENT: Normocephalic. Neck is supple. Pupils reactive. Nostrils clear. Oral cavity is moist. Ears reveal no drainage. Neck reveals no JVD, carotid bruits, or thyromegaly. CHEST EXAMINATION: Trachea is central. Symmetrical expansion. Bibasilar diminished air entry. Lung ng clear to auscultation and percussion. CARDIAC: Normal S1, S2 with no gallops. No murmurs ABDOMEN: Soft. Bowel sounds normal. No organomegaly. No abdominal bruits. Extremities: reveal no edema. No clubbing or cyanosis Neurologically patient is currently nonverbal Skin: No rash or skin lesions. Psychiatric: Could not be assessed completely Musculoskeletal: No joint swelling or deformity. Results CBC & Chem 7: 01/08/18 16:45 01/08/18 16:45 Labs: Abnormal Lab Results - Last 24 Hours (Table) 01/08/18 01/08/18 01/08/18 Range/Units 16:45 16:45 16:45 RBC 4.18 L (4.30-5.90) m/uL Hgb 12.6 L (13.0-17.5) gm/dL APTT (22.0-30.0) sec Sodium 149 H (137-145) mmol/L Chloride 111 H (98-107) mmol/L BUN 40 H (9-20) mg/dL POC Glucose (mg/dL) (75-99) mg/dL CK-MB (CK-2) 3.1 H* (0.0-2.4) ng/mL Urine Protein (Negative) Urine Blood (Negative) Ur Leukocyte Esterase (Negative) Urine RBC (0-5) /hpf Urine WBC (0-5) /hpf Urine Bacteria (None) /hpf Urine Mucus (None) /hpf Urine Opiates Screen (NotDetected) 01/08/18 01/08/18 01/08/18 Range/Units 16:45 16:45 21:07 RBC (4.30-5.90) m/uL Hgb (13.0-17.5) gm/dL APTT 30.6 H (22.0-30.0) sec Sodium (137-145) mmol/L Chloride (98-107) mmol/L BUN (9-20) mg/dL POC Glucose (mg/dL) 59 L (75-99) mg/dL CK-MB (CK-2) (0.0-2.4) ng/mL Urine Protein 1+ H (Negative) Urine Blood Small H (Negative) Ur Leukocyte Esterase Large H (Negative) Urine RBC 10 H (0-5) /hpf Urine WBC >182 H (0-5) /hpf Urine Bacteria Many H (None) /hpf Urine Mucus Rare H (None) /hpf Urine Opiates Screen Detected H (NotDetected) 01/08/18 Range/Units 21:34 RBC (4.30-5.90) m/uL Hgb (13.0-17.5) gm/dL APTT (22.0-30.0) sec Sodium (137-145) mmol/L Chloride (98-107) mmol/L BUN (9-20) mg/dL POC Glucose (mg/dL) 183 H (75-99) mg/dL CK-MB (CK-2) (0.0-2.4) ng/mL Urine Protein (Negative) Urine Blood (Negative) Ur Leukocyte Esterase (Negative) Urine RBC (0-5) /hpf Urine WBC (0-5) /hpf Urine Bacteria (None) /hpf Urine Mucus (None) /hpf Urine Opiates Screen (NotDetected) Microbiology - Last 24 Hours (Table) 01/08/18 16:45 Urine Culture - Preliminary Urine,Catheterized Thrombosis Risk Factor Assmnt - DVT/VTE Prophylaxis DVT/VTE Prophylaxis: Pharmacologic Prophylaxis ordered - Choose All That Apply Any of the Below Risk Factors Present?: Yes Each Factor Represents 1 point: Medical pt on bed rest Other Risk Factors: Yes Each Risk Factor Represents 2 Points: Patient confined to bed Each Risk Factor Represents 3 Points: Age 75 years or older Thrombosis Risk Factor Assessment Total Risk Factor Score: 6 Thrombosis Risk Factor Assessment Level: High Risk Assessment and Plan Assessment: Acute urinary tract infection with history of multiple infections. Continue with aztreonam and follow-up with urine culture report Altered mental status due to acute delirium with agitation on admission. Possible metabolic encephalopathy. Coffee-ground emesis. Suspected acute GI bleed. Otherwise FOBT negative. Hemoglobin is stable. Hyponatremia due to dehydration Large hiatal hernia history Hypertension GERD It fibrillation with history of pacemaker placement Seizure disorder Medical debility/wheelchair-bound History of cerebral palsy and severely mentally handicapped BPH Kyphosis Anxiety depression and PTSD Recent weight loss. DVT prophylaxis Plan: Patient be continued on antibiotics and IV fluids. IV fluids will be changed to D5 water and follow with repeat CBC and BMP tomorrow. Monitor H&H. Hemoglobin is fairly stable otherwise. FOBT negative. Patient will not be a candidate for EGD and colonoscopy. Patient was placed on Phillips catheter while in the ER. Continue with the catheter at this time. Continue with PPI. GI and psychiatric is following. Further recommendations based on the clinical course. Prognosis is guarded. Time with Patient: Greater than 30
[2018-01-10] MEDS: LORazepam 2 MG/ML INJ IV PRN ×2 (00:02→14:36)
[2018-01-10 02:06] LABS: Glucose,Whole Blood 75 mg/dL (75-99)
[2018-01-10] MEDS: DEXTROSE 5% IN WATER 1,000 ML IV SCH (05:34)
[2018-01-10 07:21] LABS: Glucose,Whole Blood 74 mg/dL (75-99)
--- NOTE | 2018-01-10 09:15 | P.PN ---
Subjective Progress Note Date: 01/10/18 Principal diagnosis: Possible GI bleed anorexia Nursing reports no evidence of hematemesis hematochezia melena. Family requested hospice evaluation/ meeting today. Agitated and restrained. CBC pending. Patient will not eat family refuses PEG tube insertion. Objective - Vital Signs Vital signs: Vital Signs Temp 96.5 F L 01/10/18 07:00 Pulse 80 01/10/18 07:00 Resp 14 01/10/18 07:00 BP 148/74 01/10/18 07:00 Pulse Ox 90 L 01/10/18 07:00 Intake & Output 01/09/18 01/10/18 01/10/18 18:59 06:59 18:59 Intake Total 5 Output Total 325 600 Balance -320 -600 Weight 50.5 kg Intake: Oral 5 Output: Urine 325 600 Other: Voiding Method Indwelling Catheter Indwelling Catheter # Voids 1 - Exam General appearance: The patient is awake restrained agitated distress. HET: Head is normocephalic and atraumatic. Pupils are equal and reactive. Oropharynx is clear without lesions. Neck: Supple without lymphadenopathy. Trachea midline. Heart: S1 S2. Regular rate and rhythm. Lungs: No crackles or wheezes are heard. Abdomen: Soft, nontender, nondistended with bowel sounds. No peritoneal signs. No palpable organomegaly or masses. - Labs CBC & Chem 7: 01/08/18 16:45 01/08/18 16:45 Labs: Abnormal Lab Results - Last 24 Hours (Table) 01/09/18 01/10/18 Range/Units 17:07 07:19 POC Glucose (mg/dL) 74 L 74 L (75-99) mg/dL Microbiology - Last 24 Hours (Table) 01/08/18 16:45 Urine Culture - Preliminary Urine,Catheterized Presumptive Staph aureus 01/08/18 16:45 Blood Culture - Preliminary Blood No Growth after 24 hours Assessment and Plan (1) Hiatal hernia Narrative/Plan: 82-year-old gentleman presents with mental status changes possible UTI with reported melanotic stools from skilled nursing with negative stool guaiac and hemoglobin of 12.7. He has a history of underlying large intrathoracic hiatal hernia supported per EGD in 2016 and radiographic imaging 2017. Possible peptic ulcer disease possible Shreyas erosions secondary to large hiatal hernia but no evidence of active GI bleeding at this time. Patient presently not eating unable to maintain his nutrition. Family refuses PEG tube insertion in addition patient is not a candidate for PEG tube insertion secondary to his large hiatal intrathoracic hernia. Current Visit: Yes Status: Acute Code(s): K44.9 - DIAPHRAGMATIC HERNIA WITHOUT OBSTRUCTION OR GANGRENE SNOMED Code(s): 26572784 (2) Cerebral palsy Current Visit: No Status: Acute Code(s): G80.9 - CEREBRAL PALSY, UNSPECIFIED SNOMED Code(s): 519558305 Plan: 1. Inpatient endoscopic exams not planned at this time. Continue GI prophylaxis. Supportive measures. Family requested hospice consultation. We' ll follow as needed. Assessment and plan a care discussed with Dr. Hahn
[2018-01-10 09:33] LABS: Basophils % (A) 1 %; Eosinophils # (A) 0.2 k/uL (0-0.7); Eosinophils % (A) 3 %; HCT 39.9 % (39.0-53.0); HGB 12.7 gm/dL (13.0-17.5); Lymphocytes # (A) 2.1 k/uL (1.0-4.8); Lymphocytes % (A) 31 %; MCH 29.8 pg (25.0-35.0); MCHC 31.8 g/dL (31.0-37.0); MCV 93.8 fL (80.0-100.0); Mean Platelet Volume 7.9; Monocytes # (A) 0.4 k/uL (0-1.0); Monocytes % (A) 6 %; Neutrophils # (A) 3.9 k/uL (1.3-7.7); Neutrophils % (A) 57 %; Platelet Count 261 k/uL (150-450); RBC 4.25 m/uL (4.30-5.90); RDW 14.5 % (11.5-15.5); WBC 6.8 k/uL (3.8-10.6)
[2018-01-10] MEDS: FERROUS SULFATE 325 MG TAB PO SCH (09:33)
[2018-01-10] MEDS: LORATADINE 10 MG TAB PO SCH (09:33)
[2018-01-10] MEDS: lamoTRIgine 100 MG TAB PO SCH (09:33)
[2018-01-10] MEDS: METOPROLOL SUCCINATE (ER) 25 MG TAB.ER.24H PO SCH (09:33)
[2018-01-10] MEDS: CALCIUM CARB-VIT D 500MG-200UN 1 EACH TAB PO SCH (09:33)
[2018-01-10] MEDS: ASPIRIN 81 MG PO SCH (09:33)
[2018-01-10] MEDS: AZTREONAM 1 GM in SODIUM CHLORIDE 0.9% 50 ML IVPB SCH ×2 (09:34→15:00)
[2018-01-10] MEDS: MENTHOL-ZINC OXIDE OINT 113 GM TUBE TOPICAL SCH (09:35)
[2018-01-10] MEDS: PANTOPRAZOLE 40 MG/10 ML VIAL IVP SCH (09:35)
[2018-01-10 09:47] LABS: Anion Gap 7 mmol/L; Blood Urea Nitrogen 18 mg/dL (9-20); Carbon Dioxide 28 mmol/L (22-30); Chloride 108 mmol/L (98-107); Glucose 84 mg/dL (74-99); Potassium 3.4 mmol/L (3.5-5.1); Sodium 143 mmol/L (137-145)
[2018-01-10] MEDS: MULTIVITAMINS, THERA 1 EACH TAB PO SCH (10:56)
[2018-01-10 12:29] LABS: Glucose,Whole Blood 87 mg/dL (75-99)
--- NOTE | 2018-01-10 12:58 | CDI ---
Last Revision, May 2017 Documentation Clarification Form Date: 01/10/18 1305 From: Meagan Edmonds RN, CCDS Admit Date: 01/08/2018 6:44:00 PM Patient Name: Nael Abrams Visit Number: [id number] ATTENTION: The Clinical Documentation Specialists (CDI) and [facility] Coding Staff appreciate your assistance in clarifying documentation. Please respond to the clarification below the line at the bottom and electronically sign. The CDI & [facility] Coding staff will review the response and follow-up if needed. Please note: Queries are made part of the Legal Health Record. If you have any questions, please contact the author of this message via ITS. Dr. Kerline Solorio Atrial fibrillation is documented in the PHM of the H&P and progress notes and requires further specificity. History/Risk Factors: Atrial Fib, HTN, CHF Clinical Indicators: EKG/telemetry: none ordered Treatment: ASA 81 mg PO QD Toprol XL 25 mg PO QD In your professional opinion, can you please clarify the type of atrial fibrillation, if known? Chronic/Permanent Paroxysmal Persistent Other, please specify Unable to determine Please continue to document in your progress notes and discharge summary in order to capture severity of illness and risk of mortality. Include clinical findings that support your diagnosis. Paroxysmal MTDD
[2018-01-10 14:54] VITALS: BP 134/55; PULSE 92; RESP 16; TEMP 97.5
--- NOTE | 2018-01-10 22:05 | P.DS ---
Addendum entered and electronically signed by Erendira Bain NP-C 01/13/18 17: 14: Discharge summary been dictated for Dr. Vallejo Patient is being discharged to [facility] with [facility] today. Please refer to updated discharge med list. Time spent :35 min Original Note: Providers Date of admission: 01/08/18 18:44 Expected date of discharge: 01/10/18 Attending physician: Jesse Martin MD Consults: 01/08/18 20:58 Consult Physician Routine Consulting Provider: Karrie Ochoa Consult Reason/Comments: Severe agitation, nonverbal Do you want consulting provider notified?: Yes, Notify in am Primary care physician: Lele Calderon MD Hospital Course: Discharge diagnosis Acute urinary tract infection with history of multiple infections. Continue with aztreonam and follow-up with urine culture. [facility] Altered mental status due to acute delirium with agitation on admission. Possible metabolic encephalopathy. Currently patient is nonverbal and obtunded Coffee-ground emesis. Suspected acute GI bleed. Otherwise FOBT negative. Hemoglobin is stable. Patient is not a candidate for procedure. Hypernatremia due to dehydration Large hiatal hernia history Hypertension GERD Atria fibrillation with history of pacemaker placement Seizure disorder Medical debility/wheelchair-bound History of cerebral palsy and severely mentally handicapped BPH Kyphosis Anxiety depression and PTSD Recent weight loss. DVT prophylaxis Hospital course Patient is a 82-year-old male with a known history of cerebral palsy and mentally challenged. History of atrial fibrillation, hypertension, history of pacemaker placement, CHF, multiple UTIs, seizure disorder who is currently at intermediate on brought to the hospital with altered mental status. Patient also has history of large intrathoracic hiatal hernia with abdominal contents transverse colon as per CT chest in August 2016. Patient was also having coffee- ground emesis but otherwise patient cannot provide any history at this time. Patient was also found have urinary tract infection and was started on antibiotics in the form of aztreonam. Patient was also placed on Phillips catheter while in the ER. Most of the history was taken from the medical records as well as intermediate staff at bedside. Patient has been losing weight recently and is not eating very well as per intermediate. FOBT negative Hemoglobin 12.6 INR 1.0 Chest x-ray showed large hiatal hernia. Patient was initially a agitated and combative. Psychiatry was consulted as well for further evaluation. Patient was continued on antibiotics and IV fluids. IV fluids changed to D5 water due to hypernatremia. Patient was seen by GI and Patient will not be a candidate for EGD and colonoscopy. Urine culture is growing staph species. Otherwise patient still remains nonverbal and not responding to verbal stimuli. Patient does morning on and off. Patient is not able to eat at all. Alvarez is is poor. Due to his mental status and underlying multiple medical problems and comorbid conditions family decided to have the hospice care consulted. Hospice care. Discharge physical examination was done and vitals reviewed. Total time taken greater than 35 minutes including 18 minutes for counseling and coordination of care. Patient Condition at Discharge: Fair Plan - Discharge Summary New Discharge Prescriptions: No Action lamoTRIgine [LaMICtal] 300 mg PO QAM lamoTRIgine [LaMICtal] 350 mg PO HS Metoprolol Succinate [Toprol XL] 25 mg PO DAILY Polyethylene Glycol 3350 [Miralax] 17 gm PO DAILY Aspirin 81 mg PO DAILY #30 chew Multivitamin,Therapeutic [Thera] 1 tab PO DAILY Ipratropium-Albuterol Nebulize [Duoneb 0.5 mg-3 mg/3 ml Soln] 3 ml INHALATION RT-Q6H PRN PRN Reason: Shortness Of Breath Finasteride [Proscar] 5 mg PO HS@2100 Docusate [Colace] 100 mg PO DAILY Loratadine [Claritin] 10 mg PO DAILY traZODone HCL 50 mg PO HS Magnesium Hydroxide [Milk of Magnesia] 2,400 mg PO DAILY PRN PRN Reason: Constipation Amino Acids/Protein Hydrolys [Pro-Stat Supplement] 30 ml PO BID rOPINIRole HCL [Requip] 0.5 mg PO HS Ferrous Sulfate [Iron (65 MG Elemental)] 325 mg PO BID Mirtazapine [Remeron] 7.5 mg PO W/SUPPER Hydrocortisone Cream [Hydrocortisone 1% Cream] 1 applic TOPICAL TID PRN applic PRN Reason: Itching Menthol-Zinc Oxide Oint [Risamine Oint] 1 applic TOPICAL BID Ammonium Lactate Lotion [Lac-Hydrin 12% Lotion] 1 applic TOPICAL HS@2100 Loperamide [Imodium] 4 mg PO QID PRN PRN Reason: Loose Stool Ranitidine HCl [Zantac] 150 mg PO BID Oyster Shell W/Vit D 1 tab PO DAILY Melatonin 5 mg PO HS@2100 HYDROcodone/APAP 5-325MG [[place] 5-325] 1 tab PO Q4H PRN PRN Reason: Pain Discharge Medication List Metoprolol Succinate [Toprol XL] 25 mg PO DAILY 09/10/14 [History] lamoTRIgine [LaMICtal] 300 mg PO QAM 09/10/14 [History] lamoTRIgine [LaMICtal] 350 mg PO HS 09/10/14 [History] Polyethylene Glycol 3350 [Miralax] 17 gm PO DAILY 09/24/16 [History] Aspirin 81 mg PO DAILY #30 chew 10/05/16 [Rx] Docusate [Colace] 100 mg PO DAILY 07/14/17 [History] Finasteride [Proscar] 5 mg PO HS@209907/14/17 [History] Ipratropium-Albuterol Nebulize [Duoneb 0.5 mg-3 mg/3 ml Soln] 3 ml INHALATION RT -Q6H PRN 07/14/17 [History] Loratadine [Claritin] 10 mg PO DAILY 07/14/17 [History] Multivitamin,Therapeutic [Thera] 1 tab PO DAILY 07/14/17 [History] Amino Acids/Protein Hydrolys [Pro-Stat Supplement] 30 ml PO BID 10/27/17 [ History] Ferrous Sulfate [Iron (65 MG Elemental)] 325 mg PO BID 10/27/17 [History] Magnesium Hydroxide [Milk of Magnesia] 2,400 mg PO DAILY PRN 10/27/17 [History] Mirtazapine [Remeron] 7.5 mg PO W/SUPPER 10/27/17 [History] rOPINIRole HCL [Requip] 0.5 mg PO HS 10/27/17 [History] traZODone HCL 50 mg PO HS 10/27/17 [History] Hydrocortisone Cream [Hydrocortisone 1% Cream] 1 applic TOPICAL TID PRN applic 10/29/17 [Rx] Ammonium Lactate Lotion [Lac-Hydrin 12% Lotion] 1 applic TOPICAL HS@2100 [History] HYDROcodone/APAP 5-325MG [[place] 5-325] 1 tab PO Q4H PRN 01/08/18 [History] Loperamide [Imodium] 4 mg PO QID PRN 01/08/18 [History] Melatonin 5 mg PO HS@2100 01/08/18 [History] Menthol-Zinc Oxide Oint [Risamine Oint] 1 applic TOPICAL BID 01/08/18 [History] Oyster Shell W/Vit D 1 tab PO DAILY 01/08/18 [History] Ranitidine HCl [Zantac] 150 mg PO BID 01/08/18 [History] Follow up Appointment(s)/Referral(s): [facility], [NON-STAFF] - Lele Calderon MD [Primary Care Provider] - 1-2 days Discharge Disposition: DISCH TO [facility]
== END 2018-01-10 15:54 | disposition hospice, home (50) | DRG 689 ==
LOC: EC 15:15 → 4MS4W 18:44
PROVIDERS: ADMIT Internal Medicine; ATTEND Internal Medicine
DX: N39.0 Urinary tract infection, site not specified (principal); G93.41 Metabolic encephalopathy; E87.0 Hyperosmolality and hypernatremia; Z68.1 Body mass index [BMI] 19.9 or less, adult; B95.8 Unspecified staphylococcus as the cause of diseases classified elsewhere; I48.0 Paroxysmal atrial fibrillation; Z78.1 Physical restraint status; E86.0 Dehydration; F41.8 Other specified anxiety disorders; F43.10 Post-traumatic stress disorder, unspecified; G40.909 Epilepsy, unspecified, not intractable, without status epilepticus; G80.9 Cerebral palsy, unspecified; H54.61 Unqualified visual loss, right eye, normal vision left eye; I11.0 Hypertensive heart disease with heart failure; I50.9 Heart failure, unspecified; K21.9 Gastro-esophageal reflux disease without esophagitis; K44.9 Diaphragmatic hernia without obstruction or gangrene; M40.209 Unspecified kyphosis, site unspecified; N40.0 Benign prostatic hyperplasia without lower urinary tract symptoms; R13.10 Dysphagia, unspecified; Z51.5 Encounter for palliative care; Z79.82 Long term (current) use of aspirin; Z80.1 Family history of malignant neoplasm of trachea, bronchus and lung; Z87.440 Personal history of urinary (tract) infections; Z95.0 Presence of cardiac pacemaker; Z98.42 Cataract extraction status, left eye; Z99.3 Dependence on wheelchair; R45.1 Restlessness and agitation; R63.4 Abnormal weight loss; Z88.0 Allergy status to penicillin; Z88.7 Allergy status to serum and vaccine; Z88.8 Allergy status to other drugs, medicaments and biological substances; F79 Unspecified intellectual disabilities; M19.90 Unspecified osteoarthritis, unspecified site; Z79.899 Other long term (current) drug therapy; F32.9 Major depressive disorder, single episode, unspecified; Z86.14 Personal history of Methicillin resistant Staphylococcus aureus infection
CPT/HCPCS: 36415; 51702; 70450; 71045; 80048; 80053; 80306; 81001; 82140; 82272; 82550; 82553; 84484; 85025; 85610; 85730; 87040; 87077; 87086; 87186; 94640; 96361; 96365; 96375; 99285

== ENCOUNTER 2018-01-10 15:56 | Inpatient (IN) | payer MEDICAID ==
[2018-01-10] MEDS ORDERED: LORazepam 2 MG/ML INJ IV PRN (16:02)
[2018-01-10] MEDS ORDERED: ACETAMINOPHEN SUPPOSITORY 650 MG SUPP RECTAL PRN (16:03)
[2018-01-10] MEDS ORDERED: ONDANSETRON 4 MG/2 ML VIAL IVP PRN (16:03)
[2018-01-10] MEDS ORDERED: SCOPOLAMINE 1.5MG/72HR PATCH TRANSDERM SCH (17:00)
[2018-01-10] MEDS: DEXTROSE 5% IN WATER 1,000 ML IV SCH (18:34)
[2018-01-10] MEDS: MORPHINE SULFATE 2 MG/ML SYRINGE IVP PRN ×2 (18:36→23:57)
--- NOTE | 2018-01-10 22:11 | P.HPIM ---
History of Present Illness H&P Date: 01/10/18 Chief Complaint: Altered mental status Patient is a 82-year-old male with a known history of cerebral palsy and mentally challenged. History of atrial fibrillation, hypertension, history of pacemaker placement, CHF, multiple UTIs, seizure disorder who is currently at long-term on brought to the hospital with altered mental status. Patient also has history of large intrathoracic hiatal hernia with abdominal contents transverse colon as per CT chest in August 2016. Patient was also having coffee- ground emesis but otherwise patient cannot provide any history at this time. Patient was also found have urinary tract infection and was started on antibiotics in the form of aztreonam. Patient was also placed on Phillips catheter while in the ER. Most of the history was taken from the medical records as well as long-term staff at bedside. Patient has been losing weight recently and is not eating very well as per long-term. FOBT negative Hemoglobin 12.6 INR 1.0 Chest x-ray showed large hiatal hernia. Patient was initially a agitated and combative. Psychiatry was consulted as well for further evaluation. Patient was continued on antibiotics and IV fluids. IV fluids changed to D5 water due to hypernatremia. Patient was seen by GI and Patient will not be a candidate for EGD and colonoscopy. Urine culture is growing staph species. Otherwise patient still remains nonverbal and not responding to verbal stimuli. Patient does morning on and off. Patient is not able to eat at all. Alvarez is is poor. Due to his mental status and underlying multiple medical problems and comorbid conditions family decided to have the hospice care consulted. Review of Systems Review of systems could not be obtained from the patient Past Medical History Past Medical History: Atrial Fibrillation, Eye Disorder, GERD/Reflux, Hypertension, Osteoarthritis (OA), Prostate Disorder, Seizure Disorder, Skin Disorder Additional Past Medical History / Comment(s): Last seizure 10 years ago, wheelchair-bound, speech is difficult to understand, cerebral palsy (severely mentally handicapped), right leg deformity, BPH, kyphosis, coughs up a lot of mucous, right eye blind, hiatal hernia, frequent sinus infection, bedsores, dry skin and scratches himself, UTIs, takes pills crushed w/ lots of pudding, blindness. History of Any Multi-Drug Resistant Organisms: MRSA Date of last positivie culture/infection: 03/21/17 MDRO Source:: Nose/eye Past Surgical History: Hernia Repair, Pacemaker Additional Past Surgical History / Comment(s): Left cataract surgery , oral surgery, inguinal hernia repair. Past Anesthesia/Blood Transfusion Reactions: Previous Problems w/ Anesthesia Additional Past Anesthesia/Blood Transfusion Reaction / Comment(s): Limted family history. Type of Cardiac Device: Permanent Pacemaker Device Placement Date:: 2003 inserted and 2016 battery changed Past Psychological History: Anxiety, Depression, PTSD Additional Psychological History / Comment(s): Needs anesthesia for CTs/ invasive testing-per ECF and Legal Guardian-pt would get combative., Pt was institutionalized for years-age [age]. He was in a straight jacket at times. He came to live with Thalia Pascual and her spouse after that. He has cerebral palsy and is mentally handicapped. He has the mentation of a 3 yrs old. He gets agitated with new experiences. Smoking Status: Never smoker Past Alcohol Use History: None Reported Past Drug Use History: None Reported - Past Family History Father History Unknown: Yes Mother Family Medical History: Cancer Additional Family Medical History / Comment(s): Lung cancer Medications and Allergies Home Medications Medication Instructions Recorded Confirmed Type Metoprolol Succinate [Toprol XL] 25 mg PO DAILY 09/10/14 01/10/18 History lamoTRIgine [LaMICtal] 300 mg PO QAM 09/10/14 01/10/18 History lamoTRIgine [LaMICtal] 350 mg PO HS 09/10/14 01/10/18 History Polyethylene Glycol 3350 [Miralax] 17 gm PO DAILY 09/24/16 01/10/18 History Aspirin 81 mg PO DAILY #30 chew 10/05/16 01/10/18 Rx Docusate [Colace] 100 mg PO DAILY 07/14/17 01/10/18 History Finasteride [Proscar] 5 mg PO HS@2100 07/14/17 01/10/18 History Ipratropium-Albuterol Nebulize 3 ml INHALATION RT-Q6H PRN 07/14/17 01/10/18 History [Duoneb 0.5 mg-3 mg/3 ml Soln] Loratadine [Claritin] 10 mg PO DAILY 07/14/17 01/10/18 History Multivitamin,Therapeutic [Thera] 1 tab PO DAILY 07/14/17 01/10/18 History Amino Acids/Protein Hydrolys 30 ml PO BID 10/27/17 01/10/18 History [Pro-Stat Supplement] Ferrous Sulfate [Iron (65 MG 325 mg PO BID 10/27/17 01/10/18 History Elemental)] Magnesium Hydroxide [Milk of 2,400 mg PO DAILY PRN 10/27/17 01/10/18 History Magnesia] Mirtazapine [Remeron] 7.5 mg PO W/SUPPER 10/27/17 01/10/18 History rOPINIRole HCL [Requip] 0.5 mg PO HS 10/27/17 01/10/18 History traZODone HCL 50 mg PO HS 10/27/17 01/10/18 History Hydrocortisone Cream 1 applic TOPICAL TID PRN applic 10/29/17 01/10/18 Rx [Hydrocortisone 1% Cream] Ammonium Lactate Lotion 1 applic TOPICAL HS@2100 01/08/18 01/10/18 History [Lac-Hydrin 12% Lotion] HYDROcodone/APAP 5-325MG [[place] 1 tab PO Q4H PRN 01/08/18 01/10/18 History 5-325] Loperamide [Imodium] 4 mg PO QID PRN 01/08/18 01/10/18 History Melatonin 5 mg PO HS@2100 01/08/18 01/10/18 History Menthol-Zinc Oxide Oint [Risamine 1 applic TOPICAL BID 01/08/18 01/10/18 History Oint] Oyster Shell W/Vit D 1 tab PO DAILY 01/08/18 01/10/18 History Ranitidine HCl [Zantac] 150 mg PO BID 01/08/18 01/10/18 History Allergies Allergy/AdvReac Type Severity Reaction Status Date / Time diphenhydramine HCl Allergy hyper and Verified 01/10/18 16:45 [From Benadryl] aggitated Influenza Virus Vaccines Allergy Confusion Verified 01/10/18 16:45 Penicillins AdvReac Unknown Verified 01/10/18 16:45 Physical Exam Vitals: Intake and Output 01/10/18 01/10/18 01/10/18 06:59 14:59 22:59 Other: Weight 57.5 kg PHYSICAL EXAMINATION: Patient is lying in the bed comfortably, no acute distress, patient is nonverbal. Moans sometimes.. HEENT: Normocephalic. Neck is supple. Pupils reactive. Nostrils clear. Oral cavity dry. Ears reveal no drainage. Neck reveals no JVD, carotid bruits, or thyromegaly. CHEST EXAMINATION: Trachea is central. Symmetrical expansion. Bibasilar diminished air entry Lung ng clear to auscultation and percussion. CARDIAC: Normal S1, S2 with no gallops. No murmurs ABDOMEN: Soft. Bowel sounds normal. No organomegaly. No abdominal bruits. Extremities: reveal no edema. No clubbing or cyanosis. Contracted. Neurologically patient is nonverbal. Skin: No rash or skin lesions. Psychiatric: Could not be assessed Musculoskeletal: No joint swelling or deformity. Assessment and Plan Assessment: Acute urinary tract infection with history of multiple infections. Continue with aztreonam and follow-up with urine culture. Presented to [facility] Altered mental status due to acute delirium with agitation on admission. Possible metabolic encephalopathy. Currently patient is nonverbal and obtunded Coffee-ground emesis. Suspected acute GI bleed. Otherwise FOBT negative. Hemoglobin is stable. Patient is not a candidate for procedure. Mild to moderate protein calorie malnutrition Hypernatremia due to dehydration Large hiatal hernia history Hypertension GERD Paroxysmal Atrial fibrillation with history of pacemaker placement Seizure disorder Medical debility/wheelchair-bound History of cerebral palsy and severely mentally handicapped BPH Kyphosis Anxiety depression and PTSD Recent weight loss. DVT prophylaxis Plan: Patient will be continued on IV hydration and antibiotics. Continue the pain management and comfort care. Hospice care is following. Further recommendations based on the clinical course.
[2018-01-11] MEDS ORDERED: AZTREONAM 1 GM in SODIUM CHLORIDE 0.9% 50 ML IVPB SCH ×2
[2018-01-11] MEDS ORDERED: ONDANSETRON 4 MG/2 ML VIAL IVP PRN (07:12)
[2018-01-11] MEDS ORDERED: ACETAMINOPHEN SUPPOSITORY 650 MG SUPP RECTAL PRN (07:12)
[2018-01-11] MEDS: DEXTROSE 5% IN WATER 1,000 ML IV SCH ×3 (07:22→22:20)
[2018-01-11] MEDS ORDERED: SCOPOLAMINE 1.5MG/72HR PATCH TRANSDERM SCH (08:00)
[2018-01-11] MEDS: AZTREONAM 1 GM in SODIUM CHLORIDE 0.9% 50 ML IVPB SCH ×2 (08:34→15:20)
[2018-01-11] MEDS: MORPHINE SULFATE 2 MG/ML SYRINGE IVP PRN ×2 (10:39→18:53)
[2018-01-11] MEDS: LORazepam 2 MG/ML INJ IV PRN (11:07)
[2018-01-11 15:51] VITALS: BP 138/60; PULSE 89; RESP 16
--- NOTE | 2018-01-11 23:24 | P.PN ---
Subjective Progress Note Date: 01/11/18 Principal diagnosis: Acute urinary tract infection Patient is a 82-year-old male with a known history of cerebral palsy and mentally challenged. History of atrial fibrillation, hypertension, history of pacemaker placement, CHF, multiple UTIs, seizure disorder who is currently at long-term on brought to the hospital with altered mental status. Patient also has history of large intrathoracic hiatal hernia with abdominal contents transverse colon as per CT chest in August 2016. Patient was also having coffee- ground emesis but otherwise patient cannot provide any history at this time. Patient was also found have urinary tract infection and was started on antibiotics in the form of aztreonam. Patient was also placed on Phillips catheter while in the ER. Most of the history was taken from the medical records as well as long-term staff at bedside. Patient has been losing weight recently and is not eating very well as per long-term. FOBT negative Hemoglobin 12.6 INR 1.0 Chest x-ray showed large hiatal hernia. Patient was initially a agitated and combative. Psychiatry was consulted as well for further evaluation. Patient was continued on antibiotics and IV fluids. IV fluids changed to D5 water due to hypernatremia. Patient was seen by GI and Patient will not be a candidate for EGD and colonoscopy. Urine culture is growing staph species. Otherwise patient still remains nonverbal and not responding to verbal stimuli. Patient does morning on and off. Patient is not able to eat at all. Prognosis is poor. Due to his mental status and underlying multiple medical problems and comorbid conditions family decided to have the hospice care consulted. 01/11/2018 Patient is currently nonverbal and tries to move with verbal stimuli. Contractures of hands and legs and patient was lying in position. Wound culture showed staph species. MSSA. Otherwise patient is on IV fluids and currently cannot eat. Patient is being followed by hospice care. Family wants labs to be ordered . Review of systems could not be apparent from the patient Objective - Vital Signs Vital signs: Vital Signs Temp Pulse 89 01/11/18 15:50 Resp 16 01/11/18 15:50 BP 138/60 01/11/18 15:50 Pulse Ox 93 L 01/11/18 15:50 Intake & Output 01/11/18 01/11/18 01/12/18 06:59 18:59 06:59 Intake Total 300 Output Total 300 250 650 Balance -300 50 -650 Weight 57.5 kg Intake: Oral 300 Output: Urine 300 250 650 Other: Voiding Method Indwelling Catheter Indwelling Catheter # Voids 0 # Bowel Movements 0 - Exam PHYSICAL EXAMINATION: Patient is lying in the bed comfortably, no acute distress, patient is nonverbal . 1H. HEENT: Normocephalic. Neck is supple. Pupils reactive. Nostrils clear. Oral cavity is moist. Ears reveal no drainage. Neck reveals no JVD, carotid bruits, or thyromegaly. CHEST EXAMINATION: Trachea is central. Symmetrical expansion. Bibasilar diminished air entry. Lung ng clear to auscultation and percussion. CARDIAC: Normal S1, S2 with no gallops. No murmurs ABDOMEN: Soft. Bowel sounds normal. No organomegaly. No abdominal bruits. Extremities: reveal no edema. No clubbing or cyanosis Neurologically and is nonverbal. Contractions of legs and hands. Skin: No rash or skin lesions. Psychiatric: Could not be assessed Musculoskeletal: No joint swelling or deformity. Assessment and Plan Assessment: Acute urinary tract infection with history of multiple infections. Continue with aztreonam and follow-up with urine culture. Presented to stap species. ALLERGY to penicillin. Altered mental status due to acute delirium with agitation on admission. Possible metabolic encephalopathy. Currently patient is nonverbal and obtunded Coffee-ground emesis. Suspected acute GI bleed. Otherwise FOBT negative. Hemoglobin is stable. Patient is not a candidate for procedure. Mild to moderate protein calorie malnutrition Hypernatremia due to dehydration Large hiatal hernia history Hypertension GERD Paroxysmal Atrial fibrillation with history of pacemaker placement Seizure disorder Medical debility/wheelchair-bound History of cerebral palsy and severely mentally handicapped BPH Kyphosis Anxiety depression and PTSD Recent weight loss. DVT prophylaxis Plan: Patient will be continued on IV hydration and antibiotics. Continue the pain management and comfort care. Hospice care is following. Further recommendations based on the clinical course. Time with Patient: Greater than 30
[2018-01-12] MEDS: AZTREONAM 1 GM in SODIUM CHLORIDE 0.9% 50 ML IVPB SCH ×3 (00:25→16:47)
[2018-01-12] MEDS: DEXTROSE 5% IN WATER 1,000 ML IV SCH (08:26)
[2018-01-12 08:31] LABS: Anion Gap 5 mmol/L; Blood Urea Nitrogen 10 mg/dL (9-20); Calcium 8.7 mg/dL (8.4-10.2); Carbon Dioxide 29 mmol/L (22-30); Chloride 102 mmol/L (98-107); Glucose 105 mg/dL (74-99); Potassium 3.3 mmol/L (3.5-5.1); Sodium 136 mmol/L (137-145)
[2018-01-12] MEDS ORDERED: POTASSIUM CHLORIDE ER 20 MEQ TAB.ER PO STA (10:56)
[2018-01-12] MEDS: METOPROLOL SUCCINATE (ER) 25 MG TAB.ER.24H PO SCH (12:56)
--- NOTE | 2018-01-12 14:25 | P.PN ---
Subjective Progress Note Date: 01/12/18 Principal diagnosis: Acute urinary tract infection Patient is a 82-year-old male with a known history of cerebral palsy and mentally challenged. History of atrial fibrillation, hypertension, history of pacemaker placement, CHF, multiple UTIs, seizure disorder who is currently at skilled nursing on brought to the hospital with altered mental status. Patient also has history of large intrathoracic hiatal hernia with abdominal contents transverse colon as per CT chest in August 2016. Patient was also having coffee- ground emesis but otherwise patient cannot provide any history at this time. Patient was also found have urinary tract infection and was started on antibiotics in the form of aztreonam. Patient was also placed on Phillips catheter while in the ER. Most of the history was taken from the medical records as well as skilled nursing staff at bedside. Patient has been losing weight recently and is not eating very well as per skilled nursing. FOBT negative Hemoglobin 12.6 INR 1.0 Chest x-ray showed large hiatal hernia. Patient was initially a agitated and combative. Psychiatry was consulted as well for further evaluation. Patient was continued on antibiotics and IV fluids. IV fluids changed to D5 water due to hypernatremia. Patient was seen by GI and Patient will not be a candidate for EGD and colonoscopy. Urine culture is growing staph species. Otherwise patient still remains nonverbal and not responding to verbal stimuli. Patient does morning on and off. Patient is not able to eat at all. Prognosis is poor. Due to his mental status and underlying multiple medical problems and comorbid conditions family decided to have the hospice care consulted. 01/11/2018 Patient is currently nonverbal and tries to move with verbal stimuli. Contractures of hands and legs and patient was lying in position. Wound culture showed staph species. MSSA. Otherwise patient is on IV fluids and currently cannot eat. Patient is being followed by hospice care. Family wants labs to be ordered . 01/12/2018 Patient became more alert and oriented today. Able to provide single word answers. No commerce of chest pain or shortness of fever no chills. Patient was able to eat his breakfast. Family wants to start back on metoprolol as well as seizure medications. Sodium level currently 136 and potassium 3.3 Completely of systems could not be apparent from the patient Current medications reviewed Objective - Vital Signs Vital signs: Vital Signs Temp Pulse 89 07/14/18 15:50 Resp 16 01/11/18 15:50 BP 138/60 01/11/18 15:50 Pulse Ox 93 L 01/11/18 15:50 Intake & Output 01/11/18 01/12/18 01/12/18 18:59 06:59 18:59 Intake Total 300 1060 Output Total 250 1350 Balance 50 -1350 1060 Weight 57.5 kg Intake: Intake, IV Titration 700 Amount Aztreonam 1 gm In Sodium 100 Chloride 0.9% 50 ml @ 100 mls/hr IVPB Q8HR [facility] Rx# :[id number] Dextrose 5% in Water 1, 600 000 ml @ 75 mls/hr IV . [id number] [facility] Rx#:[id number] Oral 300 360 Output: Urine 250 1350 Other: Voiding Method Indwelling Catheter Indwelling Catheter Indwelling Catheter # Voids 0 # Bowel Movements 0 - Exam PHYSICAL EXAMINATION: Patient is lying in the bed comfortably, no acute distress, awake alert and able to say yes or no. HEENT: Normocephalic. Neck is supple. Pupils reactive. Nostrils clear. Oral cavity is moist. Ears reveal no drainage. Neck reveals no JVD, carotid bruits, or thyromegaly. CHEST EXAMINATION: Trachea is central. Symmetrical expansion. Bibasilar diminished air entry. Lung ng clear to auscultation and percussion. CARDIAC: Normal S1, S2 with no gallops. No murmurs ABDOMEN: Soft. Bowel sounds normal. No organomegaly. No abdominal bruits. Extremities: reveal no edema. No clubbing or cyanosis Neurologically . Awake alert. Contractions of legs and hands. Skin: No rash or skin lesions. Psychiatric: Could not be assessed Musculoskeletal: No joint swelling or deformity. - Labs CBC & Chem 7: 01/12/18 07:55 Labs: Abnormal Lab Results - Last 24 Hours (Table) 01/12/18 Range/Units 07:55 Sodium 136 L (137-145) mmol/L Potassium 3.3 L (3.5-5.1) mmol/L Creatinine 0.40 L (0.66-1.25) mg/dL Glucose 105 H (74-99) mg/dL Assessment and Plan Assessment: Acute urinary tract infection with history of multiple infections. Continue with aztreonam and follow-up with urine culture. Presented to staph species. ALLERGY to penicillin. Altered mental status due to acute delirium with agitation on admission. Possible metabolic encephalopathy. Currently patient is nonverbal and obtunded Coffee-ground emesis. Suspected acute GI bleed. Otherwise FOBT negative. Hemoglobin is stable. Patient is not a candidate for procedure. Mild to moderate protein calorie malnutrition Hypernatremia due to dehydration Large hiatal hernia history Hypertension GERD Paroxysmal Atrial fibrillation with history of pacemaker placement Seizure disorder Medical debility/wheelchair-bound History of cerebral palsy and severely mentally handicapped BPH Kyphosis Anxiety depression and PTSD Recent weight loss. DVT prophylaxis Plan: Patient will be continued on IV hydration and antibiotics. We will discontinue Phillips catheter. Continue the pain management and comfort care. Hospice care is following. Further recommendations based on the clinical course. Time with Patient: Greater than 30
[2018-01-12] MEDS: LORazepam 2 MG/ML INJ IV PRN (16:47)
[2018-01-12] MEDS ORDERED: lamoTRIgine 100 MG TAB PO SCH (21:00)
[2018-01-12] MEDS: MORPHINE SULFATE 2 MG/ML SYRINGE IVP PRN (22:35)
[2018-01-13] MEDS: AZTREONAM 1 GM in SODIUM CHLORIDE 0.9% 50 ML IVPB SCH ×2 (00:22→07:43)
[2018-01-13] MEDS: DEXTROSE 5% IN WATER 1,000 ML IV SCH ×2 (00:22→10:26)
[2018-01-13] MEDS: METOPROLOL SUCCINATE (ER) 25 MG TAB.ER.24H PO SCH (07:43)
[2018-01-13] MEDS ORDERED: lamoTRIgine 100 MG TAB PO SCH (09:00)
== END 2018-01-13 13:15 | disposition hospice, home (50) | DRG 689 ==
LOC: 4MS4W 15:56
PROVIDERS: ADMIT Internal Medicine; ATTEND Internal Medicine
DX: N39.0 Urinary tract infection, site not specified (principal); G93.41 Metabolic encephalopathy; E44.0 Moderate protein-calorie malnutrition; Z68.1 Body mass index [BMI] 19.9 or less, adult; E87.0 Hyperosmolality and hypernatremia; F72 Severe intellectual disabilities; K92.0 Hematemesis; E86.0 Dehydration; F41.8 Other specified anxiety disorders; F43.10 Post-traumatic stress disorder, unspecified; G40.909 Epilepsy, unspecified, not intractable, without status epilepticus; G80.9 Cerebral palsy, unspecified; H54.61 Unqualified visual loss, right eye, normal vision left eye; I11.0 Hypertensive heart disease with heart failure; I48.0 Paroxysmal atrial fibrillation; I50.9 Heart failure, unspecified; K21.9 Gastro-esophageal reflux disease without esophagitis; K44.9 Diaphragmatic hernia without obstruction or gangrene; M40.209 Unspecified kyphosis, site unspecified; N40.0 Benign prostatic hyperplasia without lower urinary tract symptoms; Z51.5 Encounter for palliative care; Z79.82 Long term (current) use of aspirin; Z80.1 Family history of malignant neoplasm of trachea, bronchus and lung; Z87.440 Personal history of urinary (tract) infections; Z88.0 Allergy status to penicillin; Z95.0 Presence of cardiac pacemaker; Z98.42 Cataract extraction status, left eye; Z99.3 Dependence on wheelchair; Z86.14 Personal history of Methicillin resistant Staphylococcus aureus infection; F32.9 Major depressive disorder, single episode, unspecified; Z79.899 Other long term (current) drug therapy
CPT/HCPCS: 80048